=== PATIENT | female | born 1945 | race Caucasian/White ===

== ENCOUNTER → 2018-01-21 12:28 | Outpatient (CLI) | payer MEDICARE, OTHER, SELFPAY ==
[2018-01-21 14:23] LABS: Thyroid Stimulating Hormone 1.64 uIU/mL (0.47-4.68)
[2018-01-21 15:13] LABS: Vitamin D 25 Hydroxy (D3) 77.9 ng/mL (30.0-100.0)
== END ==
PROVIDERS: PCP Family Medicine; Visit Provider Family Medicine
DX: M85.80 Other specified disorders of bone density and structure, unspecified site (principal); E03.9 Hypothyroidism, unspecified
CPT/HCPCS: 36415; 82306; 84443

== ENCOUNTER → 2019-01-19 13:11 | Outpatient (CLI) | payer MEDICARE, OTHER, SELFPAY ==
--- NOTE | 2019-01-19 | DI.MRI.S_ITS ---
PROCEDURE: MR KNEE LT WO CON INDICATIONS: Unilateral primary osteoarthritis, left knee TECHNIQUE: Noncontrast sagittal PD fast spin echo and T2 fast spin echo with fat saturation, sagittal 3-D FLASH with fat saturation; coronal T1 spin echo and PD fast spin echo with fat saturation, and axial PD fast spin echo with fat saturation through the knee. COMPARISON: None. FINDINGS: Image quality: Excellent. Menisci: Signal abnormality involving posterior horn of medial meniscus extending to inferior articulating surface best seen on series 10 image 24 suggestive of focal oblique tear in posterior horn of medial meniscus. There is no evidence of focal lateral meniscal tear. The meniscal root ligaments appear intact. Cruciate ligaments: The anterior and posterior cruciate ligaments appear intact. Medial structures: The medial collateral ligament appears intact. The posterior oblique ligament, semimembranosus tendon insertions, oblique popliteal ligament, and meniscocapsular junction appear intact. Visualized portions of the pes anserinus tendons appear normal. No abnormal bursal fluid. Lateral structures: The lateral collateral ligament, long and short heads of the biceps femoris tendon appear intact. The popliteus tendon appears normal; the popliteofibular ligament appears intact. The posterosuperior and anteroinferior popliteomeniscal fascicles appear intact. The arcuate and fabellofibular ligaments appear intact, on either side of the lateral inferior geniculate artery. Iliotibial band appears normal. Anterior structures: The quadriceps and patellar tendons appear intact. Patellar alignment is normal. No femoral trochlear dysplasia or ventral trochlear prominence. No edema in the infrapatellar fat pad. Bones and cartilage: There is marrow edema involving weight-bearing portion and anterior portion of lateral femoral condyle. Chondromalacia involving medial and lateral femoral condyle weightbearing portion is seen. Chondromalacia involving lateral facet of patella cartilage is also noted. Osteoarthritic changes are noted in all 3 compartments of left knee. No fracture or dislocation. Joint space: There is small to moderate joint effusion. Small popliteal cyst is seen. Normal appearing synovial plicae are incidentally noted. IMPRESSION: 1. Subtle oblique tear involving posterior horn of the meniscus extending to inferior articulating surface. No focal lateral meniscal tear. Cruciate ligaments are intact. 2. Mild tricompartmental osteoarthritis and chondromalacia more prominent in patellofemoral compartment and lateral femoral tibial compartment with bony contusion involving anterior and weightbearing portion of lateral femoral condyle. No fracture or dislocation. 3. Small amount of joint effusion and small popliteal cyst. Dictated by: Raymond Walker M.D. on 01/19/2019 at 15:18 Approved by: Raymond Walker M.D. on 01/19/2019 at 15:52
[2019-01-19 14:52] LABS: Bacteria Urine None Seen; RBC Urine None Seen (0-5/HPF)
[2019-01-19 15:23] LABS: Appearance Urine UA CLEAR; Bilirubin Urine UA NEGATIVE (NEGATIVE); Color Urine UA YELLOW; Glucose Urine UA NEGATIVE (Negative); Ketones Urine UA NEGATIVE (NEGATIVE); Leukocyte Esterase Urine UA 1+ (NEGATIVE); Nitrite Urine UA NEGATIVE (Negative); Occult Blood Urine UA NEGATIVE (Negative); Protein Urine UA NEGATIVE (Negative); Urobilinogen Urine UA 0.2 E.U./dL (0.2)
[2019-01-19 15:36] LABS: Add Manual Diff / Slide Review NO; Basophils Absolute Auto 100 /uL (0-100); Basophils Percent Auto 1.2 % (0-2); Eosinophils Absolute Auto 100 /uL (0-450); Eosinophils Percent Auto 2.9 % (2-4); Hematocrit 34.6 % (36-46); Hemoglobin 11.4 g/dL (12.0-16.0); Lymphocytes Absolute Auto 1700 /uL (1100-4500); Mean Corpuscular HGB Conc 32.8 % (30-36); Mean Corpuscular Hemoglobin 31.1 PG (26-34); Mean Corpuscular Volume 94.9 fL (80-100); Monocytes Absolute Auto 500 /uL (0-900); Monocytes Percent Auto 8.9 % (3-14); Neutrophils Absolute Auto 2800 /uL (1500-7000); Platelet Count 190 X10^3/uL (150-400); Red Blood Cell Count 3.65 X10^6/uL (4.0-5.2); Red Cell Distribution Width 13.1 % (11.6-14.8); White Blood Cell Count 5.1 X10^3/uL (4.5-11.0)
[2019-01-19 15:45] LABS: Culture Indicated Urine Specimen Cultured; Hemoglobin A1C% w Est Avg Glu 5.3 % (4.0-6.0); WBC Urine 0-1/HPF (0-5/HPF)
[2019-01-19 15:57] LABS: Blood Urea Nitrogen 21 mg/dL (7-17); Calcium 9.7 mg/dL (8.4-10.2); Carbon Dioxide 32 mmol/L (22-32); Chloride 103 mmol/L (98-107); Estimated Glomerular Filt Rate 54.5 mL/min (>60); Glucose 81 mg/dL (80-110); HEMOLYSIS < 15 (0-50); Potassium 4.6 mmol/L (3.4-5.1); Sodium 142 mmol/L (137-145)
== END ==
PROVIDERS: PCP Family Medicine; Visit Provider Orthopaedic Surgery
DX: Z01.812 Encounter for preprocedural laboratory examination (principal); Z01.818 Encounter for other preprocedural examination; M17.12 Unilateral primary osteoarthritis, left knee; S83.242A Other tear of medial meniscus, current injury, left knee, initial encounter; M22.42 Chondromalacia patellae, left knee; M25.462 Effusion, left knee; M71.22 Synovial cyst of popliteal space [Baker], left knee; S80.02XA Contusion of left knee, initial encounter; R73.9 Hyperglycemia, unspecified; N39.9 Disorder of urinary system, unspecified; Z13.1 Encounter for screening for diabetes mellitus
CPT/HCPCS: 36415; 73721; 80048; 81001; 83036; 85025; 87086; 93005

== ENCOUNTER → 2019-03-14 12:16 | Outpatient (CLI) | payer MEDICARE, OTHER, SELFPAY | PROVIDERS: PCP Family Medicine; Visit Provider Family Medicine | DX: E03.9 Hypothyroidism, unspecified (principal) | CPT/HCPCS: 36415; 84443 ==

== ENCOUNTER 2019-04-07 06:12 | Day surgery (SDC) | payer MEDICARE, OTHER, SELFPAY ==
[2019-04-07] VITALS (14 sets, daily range): BP systolic 83–115; BP diastolic 44–72; PULSE 59–79; RESP 9–18; TEMP 36.2–36.6; O2SAT 97–100; BMI 18.8
--- NOTE | 2019-04-07 06:00 | DI.RAD.S_ITS ---
PROCEDURE: XR KNEE LT 1TO2V INDICATIONS: post op films TECHNIQUE: 2 view(s) of the knee acquired. COMPARISON: [facility], CR, XR BONE LENGTH SCANOGRAM, 01/19/2019, 14:08. [facility], MR, MR KNEE LT WO CON, 01/19/2019, 13:16. FINDINGS: Bones: Patient is status post knee joint arthroplasty. Hardware components are in expected positions. Visualized bony structures are intact. Soft tissues: Overlying postoperative changes are noted. IMPRESSION: Left knee arthroplasty with prosthesis in anatomic alignment. Dictated by: Cristobal Gallagher M.D. on 04/07/2019 at 17:24 Approved by: Cristobal Gallagher M.D. on 04/07/2019 at 17:24
[2019-04-07] MEDS: VANCOMYCIN 1,000 MG/200 ML PIGGYBACK 200 MG IV (06:54)
[2019-04-07] MEDS: LACTATED RINGERS 1,000 ML 42 ML IV ×2 (06:54→09:07)
[2019-04-07] MEDS: CELECOXIB 200 MG CAPSULE PO (06:56)
[2019-04-07] MEDS: ACETAMINOPHEN 325 MG TABLET 975 MG PO ×2 (06:56→16:18)
[2019-04-07] MEDS: PREGABALIN 75 MG CAPSULE PO (06:56)
--- NOTE | 2019-04-07 07:43 | P.OP_ITS ---
Operative Date/Time/Diagnoses Date of procedure: 04/07/19 Time of procedure: 08:04 Pre-op diagnosis: left knee OA Post-op diagnosis: same Procedure & Clinicians Procedure: Left total knee arthroplasty Same procedure as scheduled: Yes Indications: The patient has had progressively worsening left knee pain with radiographic changes consistent with arthritis. Non-operative management has failed and the patient has requested total knee replacement. The risks, benefits and alternatives to surgery were discussed with the patient prior to proceeding. Risks discussed included, but were not limited to, failure to relieve pain, stiffness, infection, nerve damage, deep venous thrombosis, pulmonary embolism, stroke, coma, heart attack, permanent paralysis and , as well as the potential need for eventual revision of the prosthetic. Surgeon: Michelle Aguilar Forensic Engineer: Nancy Portillo Anesthesia Type: General and Spinal Operative Notes Findings: good stability, acceptable patella tracking Closure Type: primary Specimen(s): none sent Prosthetic devices, grafts, tissues, transplants, or devices: [facility] 2 size 4 femur, size 2 tibia, poly 9mm, patella 35 by 7.5 Applied: drain(s) Estimated Blood Loss (mL): 250 Blood products transfused: none Tourniquet time (min): 67 Procedure in detail: The patient was seen in the pre-operative area, where the patient identified the left knee as the operative site and this was marked with my initials. The patient received pre-operative antibiotics, and was taken to the operating room and placed on the operative table in the supine position. After satisfactory anesthesia, a mail forwarding system markup clerk out was performed. The left leg was encircled with a tourniquet about the proximal thigh, and the leg was prepared from the toes to the tourniquet with ChloroPrep in the usual fashion and draped through sterile drapes. The leg was elevated and exsanguinated with Eschmark bandage and the tourniquet inflated to [250] mmHg pressure. The knee was approached through an approximately 18 cm incision centered over the patella and carried into the knee through a medial parapatellar arthrotomy. A portion of the medial and lateral meniscus was resected. Soft tissue was carefully mobilized around the patella the patella was measured with a caliper. Bone was resected from the patella and the patellar height was reconstituted with up an appropriate sized patellar component. A cover was then placed on the patella. A small amount of additional medial and lateral meniscus was resected. The visionare guide fit well to the distal femur. It looked like an appropriate distal femoral cut and the cut was made without difficulty. The rotation was assessed and the appropriate size femoral guide was placed on the distal femur and finishing cuts were made. There is no evidence of notching. The anterior, posterior and chamfer cuts were then made. The posterior osteophytes and soft tissues were then removed. The posterior capsule was injected with part of a mixture of 60 ml 0.25% Marcaine mixed with 20 ml Exparel for post operative pain control. The remainder of this mixture was injected into the capsule and subcutaneous tissues during cement curing. The tibia was prepared and the visionaire guide fit well to the distal tibia. The rotation was assessed. The patient was placed in extension residual medial and lateral meniscus as well as any residual bone was carefully resected. [No] additional tibia was resected. Hemostasis was achieved especially posteriorly. Additional local was injected into the posterior capsule. The extension gap was assessed and additional releases for gap balancing were performed as necessary. It was checked with the gap flame annealing machine operator. The femoral component was trial was placed and the notch was finished. Trial tibial and femoral components were then placed and the knee placed through a range of motion. Range of motion was [0-130], with good stability throughout the range. The trials were then removed, and the tibia was finished. The bone was prepared with pulsatile lavage, and dried with a sponge. Cement was applied and the final prosthetics placed. Excess cement was removed during and after cement curing. A brief Betadine soak was performed. After confirming there was no extruded cement posteriorly, the final tibial insert was placed. The knee was copiously irrigated and the tourniquet deflated. Hemostasis was obtained with the bovie cautery. A drain was placed and brought out superolaterally. The capsule was closed with interrupted Vicryl suture. The subcutaneous layer was closed with barbed sutures, and the skin with a running 3-0 V-Lock suture and Surgical glue. An Aquacel Ag dressing was applied and the patient was taken to recovery having tolerated the procedure well. Complications: none Post-operative Condition: stable Disposition: Acute Care Plan for aftercare: The patient will be maintained on a standard total knee replacement protocol with weight bearing as tolerated. The patient will receive Lovenox and sequential compression devices for DVT prophylaxis. The patient will be discharged home when safe for the home environment.
--- NOTE | 2019-04-07 07:44 | PM.PREOP ---
Pre-operative Note Interval Note History & Physical reviewed/Exam performed by Physician: Yes Changes to H&P: No
[2019-04-07] MEDS: CEFAZOLIN 2 GM/100 ML FROZ.PIGGY IV ×2 (07:45→16:17)
--- NOTE | 2019-04-07 08:20 | SUR.OPER ---
Supine on padded OR bed. Pillow under head, arms secured on padded armboards <90 degree abduction. Safety belt across torso. Non-operative leg secured with tape over blanket over lower leg. Operative leg secured in DeMayo/Varinder positioner. Foam padded brace at thigh of operative leg.
[2019-04-07] MEDS: BUPIVACAINE 0.25% W/ EPI 30 ML VIAL 60 ML INJ (08:25)
[2019-04-07] MEDS: BUPIVACAINE LIPOSOME 266 MG/20 ML VIAL INJ (08:26)
--- NOTE | 2019-04-07 11:02 | SUR.PHASEI ---
PACU post op nurses note: VSS, SBP 85-94. Asymptomatic. No complaints of pain. Dermatome level at L4. patient able to bend knees and lift legs. Dressing to left knee CDI. Hemovac clamped at 1000 in OR. Tolerating po ice/liquids without nausea. Stable for transfer to IP room.
[2019-04-07] MEDS: LACTATED RINGERS 1,000 ML 125 ML IV (14:11)
--- NOTE | 2019-04-07 15:05 | PT.IIE ---
Surgery Performed Operation Date: 04/07/19 07:45 Actual Procedures p Total Knee Arthroplasty(Left) - Michelle Aguilar MD Surgical History (Last Updated 03/24/19 @ 14:17 by uArelia Ryder RN) Hx of arthroscopy of right knee (Acute) Hx of eye surgery (Acute) Status post arthroscopy Status post tubal ligation Medical History (Last Updated 03/24/19 @ 14:17 by Aurelia Ryder RN) Anxiety (Acute) BCC (basal cell carcinoma) (Acute) GI bleed (Acute ~2011) Hypothyroidism (Chronic) IBS (irritable bowel syndrome) (Chronic) Insomnia (Chronic) Osteoarthritis (Chronic) SCC (squamous cell carcinoma) (Acute) Thin skin (Acute) Physical Therapy Inpatient Evaluation/Re-Eval M1 PT/OT-IP Prior Functional Status Start: 04/07/19 17:37 Freq: NEEDED Status: Active Protocol: Document 04/07/19 15:05 AB (Rec: 04/07/19 17:52 AB [id number]) Medical Review Prior Functional Status Medical History Reviewed Yes Communication able to make needs known Mobility and Gait pt stated that she is independent with all mobilities and ambulation without AD but occasionall uses 2 walking sticks when walking on trails. stated that she is very active prior to sx. Social History Household Members spouse Living Arrangements House Number of Floors (Floors) Two Floors Number of Stairs To Enter/Railing? pt stays on main level of the house 2 steps without rails to enter Home Environment High Toilet,Walk in Shower Home Equipment Shower Seat without Backrest, Hand Held Shower,Grab Bars In Shower Employment Status Retired M2 PT-IP Current Condition Start: 04/07/19 17:37 Freq: NEEDED Status: Active Protocol: Document 04/07/19 15:05 AB (Rec: 04/07/19 17:52 AB [id number]) Physical Therapy Current Condition Current Condition Evaluation Date 04/07/19 Treatment Diagnosis s/p L TKA; difficulty in walking Onset Date 04/07/19 Weight Bearing Status Weight Bearing Status Weight Bear as Tolerated M3 PT-IP Subjective Start: 04/07/19 17:37 Freq: NEEDED Status: Active Protocol: Document 04/07/19 15:05 AB (Rec: 04/07/19 17:52 AB [id number]) Subjective Physical Therapy Visit Type Type Initial Evaluation Visit Start Time 15:05 Visit Stop Time 16:14 Total Visit Minutes 51 Number of PC MAINTENANCE TECHNICIAN Visits 0 Physical Therapy Visit Comments Patient Comments pt agreeable to do PT Therapy Pain Assessment Pain Present Pain Present Denied Pain M4 PT-IP Mobility and Gait Start: 04/07/19 17:37 Freq: NEEDED Status: Active Protocol: Document 04/07/19 15:05 AB (Rec: 04/07/19 17:52 AB [id number]) PT-Bed Mobility Assessment Supine to Sit Supine to Sit Standby Assistance Sit to Supine Sit to Supine Standby Assistance Scooting Scooting to Edge of Bed Standby Assistance Scooting Up and Down in Bed Standby Assistance PT-Transfer Assessment Sit to and From Stand Sit to and from Stand Standby Assistance,Contact Guard Assistance,1 Person Assistance,Use of Upper Extremities Equipment Transfer Assistive Device Gait Belt,Front Wheeled Walker Orthotic/Prosthetic Devices or Brace: No Transfers Transfer Destination Toilet Transfer Technique pt ambulated using FWW Transfer Ability Level of Assist Contact Guard Assistance,Use of Upper Extremities Comments Mobility Comments pt completed bed mobility supine to sit SBA and completed sit to stand CGA. pt ambulated to the toilet using FWW CGA. pt was able to maintain standing balance using FWW for support CGA while completing hygiene care and brief management. pt stated that she still feels numb on her coccyx and unable to tell when she has to urinate. pt completed ambulation using FWW CGA towards the sink and maintain standing balance CGA while completing handwashing. pt walked in room ~ 30 ft and completed further ambulation in the hallway. Gait Assessment Gait Gait Assistance Required: Standby Assistance,Contact Guard Assist Distance (Feet) 125 Able to Maintain Weight Bearing Status Yes During Gait Assistive Devices Assistive Device Gait Belt,Front Wheeled Walker Orthotic/Prosthetic Devices or Brace: No Factors Limiting Gait Function Factors Limiting Gait Function Decreased Strength,Pain Comments Gait Comments pt ambulated in room 30 ft using FWW SBA to CGA and completed ambulation further ambulation in the hallway using FWW SBA to CGA ~ 125 ft. Stair Climbing Assessment Evaluation Level of Assist On Stairs Contact Guard Assistance, Minimal Assistance,1 Person Assistance Devices Stair Climbing Assistive Devices Straight Cane Technique/Endurance Stair Climbing Direction Ascend and Descend Stair Climbing Technique Step to Step Number of Steps Climbed 1 Query Text: Stair Climbing Set # Repetitions (reps) 2 Comments Stair Climbing Comments pt completed up/down one step without rails using SPC CGA for ascending and min A for descending. educated pt on how spouse will needs to assist her and pt understood. PT-Balance Assessment Sitting Balance and Reactions Static Sitting Balance Ability Good Dynamic Sitting Balance Ability Good Standing Balance and Reactions Static Standing Balance Ability Fair Dynamic Standing Balance Ability Fair Device Used FWW M5 PT-IP Objective Assessments Start: 04/07/19 17:37 Freq: NEEDED Status: Active Protocol: Document 04/07/19 15:05 AB (Rec: 04/07/19 17:52 AB [id number]) Orientation Orientation/Cognition Level of Alertness Alert Orientation Name,Place,Situation Language Function Ability No Deficits Noted Memory Description Short Term Impaired Gross Range of Motion Lower Extremity ROM Assessment Within Functional Limits Strength Lower Extremity Strength Assessment Within Functional Limits Coordination Assessment Gross Coordination Gross Coordination WNL Sensation Assessment Sensation Gross Sensation WNL Muscle Tone Muscle Tone WNL Yes M6 PT-IP Treatment Start: 04/07/19 17:37 Freq: NEEDED Status: Active Protocol: Document 04/07/19 15:05 AB (Rec: 04/07/19 17:52 AB [id number]) Physical Therapy Treatment Exercises Exercises Heel Slides Education Education Provided Precautions,Weight Bearing Status,Post-Op Packet,Safety M7 PT-IP Assessment and Plan Start: 04/07/19 17:37 Freq: NEEDED Status: Active Protocol: Document 04/07/19 15:05 AB (Rec: 04/07/19 17:52 AB [id number]) PT Summary Assessment and Plan Potential Rehabilitation Potential Good Status of Condition at Evaluation Stable Summary Impairments Pain,ROM,Strength,Balance, Coordination,Sensation,Tone, Cognition,Bed Mobility, Transfers,Gait,Activity Tolerance Assessment Summary pt requiring SBA to CGA with transfers/ambulation and min A for descendign steps and stated that her spouse will be able to assist her. pt is set up for outpt PT. pt may go home when medically stable. Goals Bed Mobility Goal Independent Transfer Goal Independent,Front Wheeled Walker Gait Goal Independent,Front Wheel Walker Gait Distance 200 Other Goals up/down 2 steps using SPC SBA Days to Meet Goals 3 Frequency of Treatment Frequency Of Treatment Twice a Day Treatment Plan Physical Therapy Treatment Plan Bed Mobility Training,Transfer Training,Gait Training, Therapeutic Exercise,Balance Retraining,Post Op Education, Discharge Planning,Hot or Cold Pack,Neuromuscular Re-ed, Coordination Retraining,Manual Therapy Other Recommendations and Next Treatment ambulation, stair climbing, Focus caregiver training Recommendations To Nursing Amount of Assist Needed 1 Person Assist Discharge Recommendations PT Discharge Recommendations Home with Assistance, Outpatient PT
--- NOTE | 2019-04-07 16:12 | CM.DANOTE ---
Attempted x 2 to perform initial assessment on the patient, but both times she was walking in the hallway with PT. I jokingly said to patient she looked ready to go home right now and she stated, I'd love to I will attempt again in the am to assess plan of care for discharge.
--- NOTE | 2019-04-07 17:08 | P.DS_ITS ---
History of Present Illness History of Present Illness Date Patient Seen: 04/07/19 Time Patient Seen: 17:08 Chief complaint: [id number] Narrative: Please see HPI previously recorded in chart. Discharge Providers Provider Date of admission: 04/07/19 06:12 Discharge Date: 04/07/19 Primary care physician: Zenaida Guzman MD Consults: 04/07/19 06:00 Consult to Anesthesiology Routine Comment: Consulting Provider: Anesthesiologist Reason for consultation: Regional block for post operative pain control 04/07/19 12:04 Consult to Discharge Planning Routine Comment: Consult to Physical Therapy Evaluate & Treat Comment: Physician Instructions: postop TKA protocol Consult to Respiratory Therapy Evaluate & Treat Comment: Physician Instructions: Evaluate and treat Discharge provider: Nancy Portillo PA-C Summary Hospital Course Discharge Diagnosis: s/p left total knee arthroplasty Hospital Course: The patient has had progressively worsening left knee pain with radiographic changes consistent with arthritis. Non-operative management has failed and the patient has requested total knee replacement. The risks, benefits and alternatives to surgery were discussed with the patient prior to proceeding. Risks discussed included, but were not limited to, failure to relieve pain, stiffness, infection, nerve damage, deep venous thrombosis, pulmonary embolism, stroke, coma, heart attack, permanent paralysis and , as well as the potential need for eventual revision of the prosthetic. Patient was taken to the operating room where she underwent left total knee arthroplasty with Dr. Aguilar which she tolerated well without complications. Afterwards she was taken to the acute care floor where she has been progressing well post operatively. She has mobilized well with physical therapy and has successfully climbed stairs. She has had several episodes of urinary incontinence post operatively. She is tolerating a diet. She has had some hypotension, but it has been asymptomatic and patient typically has low blood p ressures. She has good support system at home and has supply of home medications except Tramadol which she is being discharged with. Hemovac was discontinued prior to discharge. She is medically stable for discharge at this time. Status at Discharge Cognitive/behavioral status at discharge: oriented Functional status at discharge: uses cane/walker Overall status at discharge: patient is progressing back to baseline Exam Vital Signs (past 8 hours): - 04/07/19 10:16 04/07/19 10:21 04/07/19 10:26 Temperature 97.2 F L Pulse Rate 79 74 75 Respiratory Rate 11 L 10 L 10 L Blood Pressure 101/59 L 98/58 L 94/52 L Pulse Oximetry 99 99 98 04/07/19 10:31 04/07/19 10:58 04/07/19 11:15 Temperature 97.6 F 97.6 F 97.4 F L Pulse Rate 68 64 64 Respiratory Rate 9 L 13 13 Blood Pressure 89/52 L 89/60 L Pulse Oximetry 98 97 99 04/07/19 11:30 04/07/19 12:00 04/07/19 12:30 Temperature 97.1 F L 97.1 F L 97.6 F Pulse Rate 59 L 63 61 Respiratory Rate 15 16 16 Blood Pressure 83/59 L 84/59 L 98/51 L Pulse Oximetry 98 98 98 04/07/19 13:30 04/07/19 13:43 04/07/19 14:44 Temperature 97.6 F 97.8 F Pulse Rate 68 67 Respiratory Rate 18 14 17 Blood Pressure 87/54 L 101/44 L Pulse Oximetry 100 97 100 04/07/19 15:56 Temperature 97.8 F Pulse Rate 70 Respiratory Rate 16 Blood Pressure 113/68 Pulse Oximetry 97 Oxygen Delivery Method Room Air Oxygen Flow Rate 0 Narrative Exam Narrative: Pleasant 73 year old female resting comfortably in bed. Alert and oriented in no acute distress. Aquacel dressing in place over left knee is CDI. Patient able to extend the leg and flex/extend the foot. SILT. Palpable pedal pulse. Calves soft, compressible. Discharge Plan Discharge Plan Patient Disposition: Home Discharge Med Rec/Prescriptions Prescriptions: New aspirin 81 mg Tablet,Delayed Release (Dr/Ec) 81 mg PO BID Qty: 60 RF: 0 tramadol 50 mg Tablet 50 mg PO TID PRN (Reason: Pain, Moderate (4-6)) Qty: 40 RF: 0 Continued amitriptyline 10 MG tablet 20 mg PO HS Qty: 0 RF: 0 diazepam 2 MG tablet 4 mg PO HS Qty: 0 RF: 0 multivitamin tablet 1 tab PO DAILY RF: 0 calcium-magnesium 300-300 mg tablet 1 tab PO DAILY RF: 0 ibuprofen 200 mg Capsule 600 mg PO QD-BID PRN (Reason: Pain) RF: 0 acetaminophen [Acetaminophen Pain Relief] 500 mg Tablet 1,000 mg PO Q6H PRN (Reason: Pain) RF: 0 levothyroxine 50 mcg tablet 50 mcg PO BEDTIME RF: 0 Follow up/Referrals: Zenaida Guzman MD [Primary Care Provider] - Michelle Aguilar MD [Physician] - Provider Discharge Instructions Diet: Diet as Tolerated Activity: Weight bear as tolerated. Use cane or front wheel walker for support. Cold/Heat Therapy: Apply ice packs as needed. Skin/Wound/Dressing Care Report to your healthcare provider any signs of infection, such as:: chills, fever, night sweats, unusual drainage and unusual redness Dressing: Please leave dressing in place. If dressing becomes saturated please call the office. Visit Report/Discharge Packet Instructions: DI for Knee Replacement Discharge Data Primary Care Provider: Zenaida Guzman
== END 2019-04-07 18:19 | disposition home or self-care (01) ==
LOC: AC 16:52 → OR 04-08 08:23
PROVIDERS: PCP Family Medicine; Visit Provider Orthopaedic Surgery
PROC: 0SRD0JZ Replacement of Left Knee Joint with Synthetic Substitute, Open Approach (ICD-10-PCS; CPT 27447; principal; 2019-04-07 07:45)
DX: M17.12 Unilateral primary osteoarthritis, left knee (principal); E03.9 Hypothyroidism, unspecified
CPT/HCPCS: 27447; 73560; 94762; 97116; 97161; 97530; C1776; C9290; J0690; J1100; J2250; J2274; J2405; J3010

== ENCOUNTER → 2019-08-26 15:06 | Outpatient (CLI) | payer MEDICARE, OTHER, SELFPAY ==
[2019-04-07 13:58] VITALS: BMI 18.8
--- NOTE | 2019-08-26 | DI.MG.S_ITS ---
BILATERAL DIGITAL SCREENING MAMMOGRAM 3D/2D WITH CAD: 08/26/2019 CLINICAL: Routine screening. Comparison is made to exams dated: 09/13/2015 mammogram, 09/12/2014 mammogram, and 01/21/2013 mammogram - [facility]. The tissue of both breasts is heterogeneously dense. This may lower the sensitivity of mammography. Current study was also evaluated with a Computer Aided Detection (CAD) system. No significant masses, calcifications, or other findings are seen in either breast. There has been no significant interval change. IMPRESSION: NEGATIVE There is no mammographic evidence of malignancy. A 1 year screening mammogram is recommended. This exam was interpreted at Station ID: [id number]. NOTE: For mammograms, a report in lay terms will be sent to the patient. Approximately 15% of breast malignancies will not be visualized mammographically. In the management of a palpable breast mass, a negative mammogram must not discourage biopsy of a clinically suspicious lesion. Electronically Signed By: Tino benson/bhavani:08/26/2019 18:34:31 letter sent: Normal Exam ACR BI-RADS Category 1: Negative [id number]
== END ==
PROVIDERS: PCP Family Medicine; Visit Provider Family Medicine
DX: Z12.31 Encounter for screening mammogram for malignant neoplasm of breast (principal)
CPT/HCPCS: 77063; 77067

== ENCOUNTER → 2019-12-19 13:50 | Outpatient (CLI) | payer MEDICARE, OTHER, SELFPAY ==
[2019-12-19 09:02] VITALS: BMI 18.8
[2019-12-22 04:36] LABS: COVID19 Sendout Not Detected (Not Detected)
== END ==
PROVIDERS: PCP Family Medicine; Visit Provider Registered Nurse
DX: Z01.818 Encounter for other preprocedural examination (principal)
CPT/HCPCS: 87635

== ENCOUNTER → 2020-04-04 10:49 | Outpatient (CLI) | payer MEDICARE, OTHER, SELFPAY ==
[2019-12-19 09:02] VITALS: BMI 18.8
[2020-04-04 11:39] LABS: Appearance Urine UA CLEAR; Bilirubin Urine UA NEGATIVE (NEGATIVE); Color Urine UA YELLOW; Glucose Urine UA NEGATIVE (Negative); Ketones Urine UA NEGATIVE (NEGATIVE); Leukocyte Esterase Urine UA 1+ (NEGATIVE); Nitrite Urine UA NEGATIVE (Negative); Occult Blood Urine UA TRACE-INTACT (Negative); Protein Urine UA NEGATIVE (Negative); Specific Gravity Urine UA <=1.005 (1.000-1.035); Urobilinogen Urine UA 0.2 E.U./dL (0.2); pH Urine UA 6.5 (4.5-8.0)
[2020-04-04 12:07] LABS: Bacteria Urine Many (>30); Culture Indicated Urine Specimen Cultured; RBC Urine 0-1/HPF (0-5/HPF); Squamous Epithelial Cell Urine 0-1 /HPF (0-5/HPF); WBC Urine 5-10/HPF (0-5/HPF)
== END ==
PROVIDERS: PCP Family Medicine; Referring Provider Family Medicine; Visit Provider Family Medicine
DX: R30.9 Painful micturition, unspecified (principal)
CPT/HCPCS: 81001; 87077; 87086; 87186

== ENCOUNTER → 2020-05-10 15:37 | Outpatient (CLI) | payer MEDICARE, OTHER, SELFPAY ==
--- NOTE | 2020-05-10 | DI.MRI.S_ITS ---
PROCEDURE: MR KNEE RT WO CON INDICATIONS: unspecified internal derangement of right knee TECHNIQUE: Noncontrast sagittal PD fast spin echo and T2 fast spin echo with fat saturation, sagittal 3-D FLASH with fat saturation; coronal T1 spin echo and PD fast spin echo with fat saturation, and axial PD fast spin echo with fat saturation through the knee. COMPARISON: [facility] [place], CR, XR KNEE ARTHRITIC SERIES BI, 09/17/2018, 10:05. [facility], MR, MR KNEE LT WO CON, 01/19/2019, 13:16. FINDINGS: Image quality: Excellent. Menisci: There is severe degenerative tearing of the body and anterior horn of the lateral meniscus with mild peripheral extrusion. Mild degenerative tearing is also demonstrated within the posterior horn. Degenerative tearing is demonstrated within the anterior meniscal root ligament without rupture. The lateral meniscus and meniscal root ligaments appear intact. Cruciate ligaments: The anterior cruciate ligament is attenuated in signal and thickened. The findings are compatible with sequelae of a prior sprain or chronic myxoid degeneration. There are intact appearing fibers. The posterior cruciate ligament is intact. Medial structures: The medial collateral ligament appears intact. The semimembranosus tendon insertions and meniscocapsular junction appear intact. Visualized portions of the pes anserinus tendons appear intact without associated bursal fluid collections. Lateral structures: The lateral collateral ligament, long and short heads of the biceps femoris tendon appear intact. The popliteus tendon appears intact. Iliotibial band appears normal. Anterior structures: The quadriceps and patellar tendons appear intact. There is moderate lateral shift and mild lateral tilt of the patella. No femoral trochlear dysplasia or ventral trochlear prominence. There is edema laterally within the infrapatellar fat pad which may reflect impingement. Bones and cartilage: No bone marrow contusions or fractures. There are multiple intraosseous cysts within the proximal tibia adjacent to the ACL insertion compatible with intraosseous ganglion cysts. There is tricompartmental osteophytosis. Moderate to severe cartilage thinning is demonstrated in the lateral compartment with areas of apparent full-thickness cartilage loss. There is associated subchondral edema. Mild cartilage thinning is demonstrated in the medial compartment with superficial chondral fissuring along the medial femoral condyle. In the patellofemoral compartment, there is moderate cartilage thinning with chondral fissuring along the lateral patellar facet and lateral trochlea. Joint space: There is a small joint effusion. No Cortez's cyst. Normal appearing synovial plicae are incidentally noted. IMPRESSION: 1. Degenerative tearing of the lateral meniscus including severe degenerative tearing in the body and anterior horn. There is associated mild peripheral extrusion. 2. 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 3. 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 4. Small joint effusion. Dictated by: Tapan Ramey M.D. on 05/10/2020 at 17:56 Approved by: Tapan Ramey M.D. on 05/10/2020 at 18:03
[2020-05-10 13:56] VITALS: BMI 18.8
== END ==
PROVIDERS: PCP Family Medicine; Referring Provider Physician Assistant; Visit Provider Physician Assistant
DX: M23.241 Derangement of anterior horn of lateral meniscus due to old tear or injury, right knee (principal); M23.251 Derangement of posterior horn of lateral meniscus due to old tear or injury, right knee; M23.261 Derangement of other lateral meniscus due to old tear or injury, right knee; M17.11 Unilateral primary osteoarthritis, right knee; M25.461 Effusion, right knee; R15.9 Full incontinence of feces; R11.0 Nausea; K58.9 Irritable bowel syndrome, unspecified; Z87.19 Personal history of other diseases of the digestive system; Z78.9 Other specified health status
CPT/HCPCS: 46600; 73721; 99214

== ENCOUNTER → 2020-05-19 14:26 | Outpatient (CLI) | payer MEDICARE, OTHER, SELFPAY ==
[2020-05-10 13:56] VITALS: BMI 18.8
[2020-05-21 05:53] LABS: COVID19 Sendout Not Detected (Not Detect)
== END ==
PROVIDERS: PCP Family Medicine; Visit Provider Physician Assistant
DX: Z01.812 Encounter for preprocedural laboratory examination (principal)
CPT/HCPCS: 87635

== ENCOUNTER 2020-05-22 12:43 | Day surgery (SDC) | payer MEDICARE, OTHER, SELFPAY ==
[2020-05-10 13:56] VITALS: BMI 18.8
[2020-05-22] VITALS (8 sets, daily range): BP systolic 93–142; BP diastolic 61–81; PULSE 65–99; RESP 12–18; TEMP 36.2–37.2; O2SAT 95–100; BMI 20.2
--- NOTE | 2020-05-22 | PATH_ITS ---
[facility] Accession Number: [id number] . 01 Material submitted: . PART A: colon - RANDOM COLON PART B: body - NO SITE DESIGNATED PART C: body - NO SITE DESIGNATED PART D: stomach - STOMACH PART E: esophagus - DISTAL ESOPHAGUS . 01 Clinical history: . B: RULE OUT CELIAC C: RULE OUT H. PYLORI . 02 Diagnosis: A. Random Colon, Biopsies: Colonic mucosa with no diagnostic abnormality. Negative for active, chronic, and microscopic colitis. Negative for dysplasia and malignancy. . B. Small Bowel, Biopsy: Duodenal mucosa with no diagnostic abnormality. Negative for active inflammation, features of sprue, dysplasia, or malignancy. . C. No Site Designated, Biopsy: Duodenal mucosa with no diagnostic abnormality. Negative for active inflammation, features of sprue, dysplasia, and malignancy. . D. Stomach, Biopsy: Gastric mucosa with increased intraepithelial lymphocytes. Please see comment. Negative for Helicobacter by immunohistochemistry. Negative for intestinal metaplasia. Negative for dysplasia and malignancy. . E. Distal Esophagus, Biopsy: Columnar mucosa with increased intraepithelial lymphocytes. Please see comment. Negative for Helicobacter by immunohistochemistry. Negative for intestinal metaplasia by alcian blue stain. Negative for dysplasia and malignancy. [facility] 05/28/2020 [facility]9 Local . 02 Comment: D-E. The finding of intraepithelial lymphocytosis is nonspecific, but raises the consideration of lymphocytic gastritis. Lymphocytic gastritis can be seen in association with celiac disease, Helicobacter pylori gastritis, viral infection, Crohn's disease, medication related changes, or other etiologies. On rare occasions, lymphocytic gastritis can be associated with large rugae in the setting of a Menetrier's-like protein losing gastropathy syndrome. It is often associated with an endoscopic pattern referred to as varioliform gastritis. . . 02 Electronically signed: . Soraya Weir MD, Pathologist NPI- [id number] . 01 Gross description: . A. Received in formalin, labeled random colon, and consists of multiple mcnair-pink fragments of soft tissue measuring 1.0 x 1.0 x 0.2 cm in aggregate. The specimen is entirely submitted in cassette A1. B. Received in formalin, labeled rule out celiac, and consists of three mcnair fragments of soft tissue measuring 0.6 x 0.5 x 0.2 cm in aggregate. The specimen is entirely submitted in cassette B1. C. Received in formalin, labeled rule out H. pylori, and consists of two mcnair fragments of soft tissue measuring 0.5 x 0.5 x 0.2 cm in aggregate. The specimen is entirely submitted in cassette C1. D. Received in formalin, labeled stomach, and consists of two mcnair fragments of soft tissue measuring 0.5 x 0.4 x 0.2 cm in aggregate. The specimen is entirely submitted in cassette D1. E. Received in formalin, labeled distal esophagus, and consists of two mcnair fragments of soft tissue measuring 0.4 x 0.3 x 0.2 cm in aggregate. The specimen is entirely submitted in cassette E1. (EA:cmc10 [id number]) /MRV 05/23/2020 1242 Local . 02 Microscopic: . D. An immunohistochemical stain was performed to evaluate for Helicobacter organisms and is negative. The control stain showed appropriate reactivity. . E. An immunohistochemical stain was performed to evaluate for Helicobacter organisms and is negative. An Alcian blue stain was performed to evaluate for intestinal metaplasia and is negative. Both control stains showed appropriate reactivity. . * This test was developed and its performance characteristics determined by [employer]. It has not been cleared or approved by the U.S. Food and Drug Administration. The FDA has determined that such clearance or approval is not necessary. This test is used for clinical purposes. It should not be regarded as investigational or for research. . 02 Pathologist provided ICD-10: R19.4 . 02 CPT . 818715, 318234, 371366, 965970, 878098, M66991, 110557 Performed at: 01 [facility] [address], [place], [place] [id number] MD Tapan Pandey MD Phone: [phone] Performed at: 02 [facility] [place] [address] [place] [id number] MD Soraya Wier MD Phone: [phone]
[2020-05-22] MEDS: SODIUM CHLORIDE 0.9% 1,000 ML 200 ML IV (13:40)
--- NOTE | 2020-05-22 13:54 | PM.PREOP ---
Pre-operative Note COVID-19 COVID-19 status: Negative Result date/Date tested (Pos, Neg/Pending): 05/19/20 Interval Note History & Physical reviewed/Exam performed by Physician: Yes Changes to H&P: No ASA Class (for procedural sedation): II
--- NOTE | 2020-05-22 13:58 | PM.OP.ENDO ---
Operative Date/Time/Diagnoses Date of procedure: 05/22/20 Time of procedure: 13:58 Pre-op diagnosis: Nausea, copious mucous in the stool, due for screening colonoscopy Post-op diagnosis: other Procedure & Clinicians Study performed: Attempted EGD under conscious sedation, aborted due to patient intolerance Colonoscopy, random biopsies of colon with cold forceps Procedural sedation performed by the endoscopist for colonoscopy Same procedure as scheduled: No Indications: Nausea Due for screening colonoscopy Surgeon: Emily Gotti Procedure Notes SCOAP/Timeout: Performed Procedure in detail: The patient was brought to the room and placed in left lateral decubitus position with all bony prominences padded. A bite block was positioned in the patient's mouth to protect the lips, teeth, and tongue for the procedure. A time-out was performed and then the patient was given procedural sedation starting with 2 mg of Versed and 100 mcg of fentanyl. Once adequately sedated, the procedure was begun. The lubricated gastroscope was passed through the bite block and across the tongue. I attempted to intubate the esophagus, but the patient was found to have a very high gag reflex, and was persistent gagging and fighting the scope. I was unable to see the inlet of the esophagus in order to safely pass the gastroscope. She was given additional doses of Versed up to 6mg without any improvement. It was unsafe to proceed, and so at this point the EGD was aborted and attention was turned to the colonoscopy portion of the procedure. The patient appeared well sedated. A rectal exam was performed revealing no abnormalities. The colonoscope was then introduced to the rectum and advanced to the cecum in the usual fashion. The colon was quite tortuous, and the patient required additional 6 mg of Versed and 200 micro g of fentanyl in order to tolerate the procedure. There was very little tone to the colon, and traversing the folds of the colon was quite difficult. The cecum was identified by the appendiceal orifice, the mucosal tri-fold, and the ileocecal valve. The scope was then retracted while rotating side to side and examining each mucosal fold. Random biopsies were taken due to the history of diarrhea, and concern for colitis. At the conclusion of the procedure retroflexion was performed and small grade 1-2 internal hemorrhoids without stigmata of bleeding were seen. The scope was then withdrawn from the rectum the procedure was concluded. Due to her intolerance of the EGD portion of the procedure, we requested assistance from the anesthesiologist, Dr. Colon, to provide sedation with propofol. See additional procedure note for the dictation of that procedure. Scope withdrawal time: 9 Sedation minutes: 36 Findings: other findings (Normal appearing colon mucosa. Very tortuous and atonic colon) Specimen(s): other (Random biopsies throughout the colon) Post-procedure Recommendations: Will call with biopsy results and Other recommendation (Colonoscopy recommendations depending on biopsy results.) Follow up: weeks (two) Disposition: PACU
[2020-05-22] MEDS: LIDOCAINE 4% SOLN 50 ML 20 ML TOP (14:00)
[2020-05-22] MEDS: fentaNYL 250 MCG/5 ML INJ IV (14:26)
[2020-05-22] MEDS: MIDAZOLAM 5 MG/5 ML VIAL IV (14:26)
--- NOTE | 2020-05-22 15:05 | P.OP.ENDO_ITS ---
Operative Date/Time/Diagnoses Date of procedure: 05/22/20 Time of procedure: 15:05 Pre-op diagnosis: Nausea, intolerance of EGD under conscious sedation due to high gag reflex Post-op diagnosis: other (Duodenum with blunted villous mucosa, very tortuous esophagus, gastritis with stippled gastric mucosa) Procedure & Clinicians Study performed: Esophagogastroduodenoscopy under MAC Cold forceps biopsies of duodenum to rule out celiac, additional biopsies to rule out H pylori Cold forceps biopsies of the stomach Cold forceps biopsies of the distal esophagus Same procedure as scheduled: No (Procedure was originally attempted under conscious sedation) Indications: This is a 74-year-old woman with persistent nausea, unexplained. EGD was attempted under conscious sedation, but I was not able to safely intubate the esophagus due to high gag reflex, and so the procedure is being attempted again with an anesthesiologist to give MAC with propofol Surgeon: Emily Gotti Procedure Notes SCOAP/Timeout: Performed Procedure in detail: The patient was still mildly sedated from her colonoscopy. Dr. Colon came into the room to provide MAC with propofol. Vitals were monitored throughout the procedure and remained stable. Once adequately sedated, the procedure was begun. The lubricated gastroscope was passed through the bite block and across the tongue and into the esophagus without difficulty. The esophagus was quite tortuous. A tubular view of the esophagus was maintained as the scope was advanced through the esophagus and into the stomach. The stomach was very elongated. The scope was advanced through the stomach and to the pylorus. The scope was gently popped through the pylorus and into the duodenal bulb. The scope was flexed and advanced into the second and third portions of the duodenum. The duodenal villous mucosa had a blunted appearance. Several biopsies were taken to rule out celiac. Additional biopsies were taken to rule out H pylori. The scope was withdrawn into the stomach. There was moderate gastritis with stippling of the gastric mucosa. There were several shallow gastric ulcers in various stages of healing. The scope was retroflexed and the gastric cardia was examined. There was not a significant hiatal hernia seen. The scope was then straightened, and withdrawn into the esophagus. The Z-line was broken, but no large tongues of gastric mucosa extended up into the esophagus.. The distal esophagus was biopsied. The scope was then withdrawn through the esophagus with a tubular view. It was again noted that the esophagus was somewhat tortuous. There were no esophageal diverticula seen. The scope was then withdrawn from the patient the procedure was concluded. The patient tolerated the procedure well and was transferred to the PACU in stable condition. Findings: gastric ulcer, gastritis and other findings (Blunted duodenal mucosa, tortuous esophagus) Specimen(s): other (Biopsies of duodenal mucosa for celiac, biopsies of duodenal mucosa for H pylori, biopsies of stomach, biopsies of distal esophagus) Complications: none Impression: Blunted villous mucosa of the duodenum, moderate gastritis with stippled gastric mucosa Post-procedure Recommendations: Will call with biopsy results and Other recommendation (Follow- up in the office in 2 weeks to discuss plan of care) Follow up: weeks Disposition: PACU
--- NOTE | 2020-05-22 16:05 | SUR.PHASEII ---
Pt up and ambulating gait steady, getting dressed now
--- NOTE | 2020-05-22 16:19 | SUR.PHASEII ---
Pt dressed and waiting in wc for to arrive, no c/o and verbalizes understanding of all dc instructions
== END 2020-05-22 16:25 | disposition home or self-care (01) ==
PROVIDERS: PCP Family Medicine; Referring Provider Family Medicine; Visit Provider Surgery
PROC: 0DJ08ZZ Inspection of Upper Intestinal Tract, Via Natural or Artificial Opening Endoscopic (ICD-10-PCS; CPT 43235; principal; 2020-05-22 13:45)
PROC: 0DJD8ZZ Inspection of Lower Intestinal Tract, Via Natural or Artificial Opening Endoscopic (ICD-10-PCS; CPT 45378; 2020-05-22 13:45)
DX: R19.4 Change in bowel habit (principal); R10.2 Pelvic and perineal pain; R15.9 Full incontinence of feces; R11.0 Nausea; Z80.0 Family history of malignant neoplasm of digestive organs; F41.9 Anxiety disorder, unspecified; Z87.440 Personal history of urinary (tract) infections; E03.9 Hypothyroidism, unspecified; N81.89 Other female genital prolapse; K25.9 Gastric ulcer, unspecified as acute or chronic, without hemorrhage or perforation; K29.70 Gastritis, unspecified, without bleeding; D72.820 Lymphocytosis (symptomatic); K64.0 First degree hemorrhoids
CPT/HCPCS: 45380; 43239; 99152; 99153; J2250; J3010

== ENCOUNTER → 2020-06-21 07:50 | Outpatient (CLI) | payer MEDICARE, OTHER, SELFPAY ==
[2020-05-10 13:56] VITALS: BMI 18.8
[2020-06-21 08:53] LABS: Cholesterol 188 mg/dL (140-199); Glucose 90 mg/dL (80-110); HDL Cholesterol 54 mg/dL (40-60); LDL Cholesterol Calculated 116 mg/dL (<100); Triglycerides 90 mg/dL (35-150)
[2020-06-21 10:02] LABS: Thyroid Stimulating Hormone 2.79 uIU/mL (0.47-4.68)
== END ==
PROVIDERS: PCP Family Medicine; Referring Provider Family Medicine; Visit Provider Family Medicine
DX: Z13.1 Encounter for screening for diabetes mellitus (principal); E03.9 Hypothyroidism, unspecified; Z13.220 Encounter for screening for lipoid disorders
CPT/HCPCS: 36415; 80061; 82947; 84443

== ENCOUNTER → 2020-07-24 14:31 | Outpatient (CLI) | payer MEDICARE, OTHER, SELFPAY ==
[2020-05-10 13:56] VITALS: BMI 18.8
--- NOTE | 2020-07-24 | DI.US.S_ITS ---
PROCEDURE: US PELVIC COMPLETE INDICATIONS: CYST OF OVARY, UNSPECIFIED LATERALITY TECHNIQUE: Real-time scanning was performed of the pelvic organs, with image documentation. Additional endovaginal scanning was necessary due to incomplete visualization of the adnexal and endometrial structures by transabdominal scanning. COMPARISON: None. FINDINGS: Transabdominal scanning: Limited scanning through the kidneys shows no hydronephrosis. No pathologic free abdominal or pelvic fluid. Endovaginal scanning: Uterus: Uterus is normal in size at 2.7 x 5.0 x 4.9 cm, anteverted. The endometrium measures 3.1 mm in combined thickness. Ovaries: Right and left ovaries could not be located. At the midline of the pelvis there is a complex mass which measures up to 9.9 x 6.9 x 9.5 cm, containing a complex cyst that itself measures up to 6.8 x 6.0 x 7.3 cm with separate echotexture of the internal content. There also is an additional septated complex cyst measuring 2.3 x 2.9 x 3.8 cm and 3.9 x 2.8 x 7.2 cm associated. Hypervascularity solid mass at the superior margin of the cyst appears present. IMPRESSION: Normal appearing uterus but a normal or abnormal right and left ovary could not be located. Rather, within the midline of the pelvis is a large complex multi septated and multi cystic cystic mass, with unique echotexture of the individual internal content of the several cysts that comprise the entire large cystic structure. This has appearance that likely is malignant in origin, and gynecological surgical consultation is anticipated. Depending on the clinical status additional anatomic detail could be obtained utilizing contrast-enhanced MR scanning. Dictated by: Troy Reyes M.D. on 07/24/2020 at 16:49 Approved by: Troy Reyes M.D. on 07/24/2020 at 16:53
== END ==
PROVIDERS: PCP Family Medicine; Referring Provider Obstetrics & Gynecology; Visit Provider Obstetrics & Gynecology
DX: N81.4 Uterovaginal prolapse, unspecified (principal); N94.89 Other specified conditions associated with female genital organs and menstrual cycle
CPT/HCPCS: 76830; 76856

== ENCOUNTER → 2020-08-02 11:39 | Outpatient (CLI) | payer MEDICARE, OTHER, SELFPAY ==
[2020-05-10 13:56] VITALS: BMI 18.8
[2020-08-02 13:18] LABS: Cancer Antigen 125 < 5.5 U/mL (0-35)
[2020-08-05 12:50] LABS: Human Epididymis Prot 4 75.6 pmol/L (0.0-96.9)
== END ==
PROVIDERS: PCP Family Medicine; Referring Provider Obstetrics & Gynecology; Visit Provider Obstetrics & Gynecology
DX: C56.9 Malignant neoplasm of unspecified ovary (principal)
CPT/HCPCS: 36415; 86304; 86305

== ENCOUNTER → 2020-08-14 14:08 | Outpatient (CLI) | payer MEDICARE, OTHER, SELFPAY ==
[2020-05-10 13:56] VITALS: BMI 18.8
--- NOTE | 2020-08-14 14:10 | DI.US.S_ITS ---
PROCEDURE: US PELVIC COMPLETE INDICATIONS: RIGHT OVARIAN MASS; POSSIBLE TORSION TECHNIQUE: Real-time scanning was performed of the pelvic organs, with image documentation. Additional endovaginal scanning was necessary due to incomplete visualization of the adnexal and endometrial structures by transabdominal scanning. COMPARISON: [facility], US, US PELVIC COMPLETE, 08/06/2020, 12:28. [facility], US, US PELVIC COMPLETE, 07/24/2020, 14:49. FINDINGS: Transabdominal scanning: Limited scanning through the kidneys shows no hydronephrosis. No pathologic free abdominal or pelvic fluid. Endovaginal scanning: Uterus: Uterus is normal in size at 2.3 x 5.1 x 4.7 cm cm. The endometrium measures 3.1 mm in combined thickness. Ovaries: There is a large complex midline pelvic mass measuring up to 9.4 x 8.0 x 8.2 cm, containing low level internal echoes and several septations. This is comprised of a complex a vascular cyst measuring up to almost 10 cm, a complex irregularly marginated cyst measuring up to 3.7 cm and a solid component measuring up to 4.5 x 2.5 x 2.8 cm. Etiology is uncertain but both benign and malignant neoplasm could produce this appearance. For example, given the complexity of the structure dermoid tumor should be considered. IMPRESSION: Complex multi septated cystic mass with complex internal fluid containing low level internal echoes. Solid component, cystic component, but no calcified component is seen. Consider dermoid tumor. MR pelvis without and with contrast may be warranted for surgical planning. Findings called to Dr. Duncan, OBGYN staff. Surgical intervention is anticipated. No peritoneal free fluid is seen. Dictated by: Troy Reyes M.D. on 08/14/2020 at 15:16 Approved by: Troy Reyes M.D. on 08/14/2020 at 15:20
== END ==
PROVIDERS: PCP Family Medicine; Referring Provider Obstetrics & Gynecology; Visit Provider Obstetrics & Gynecology
DX: N83.291 Other ovarian cyst, right side (principal); R19.09 Other intra-abdominal and pelvic swelling, mass and lump; R10.9 Unspecified abdominal pain; Z20.822 Contact with and (suspected) exposure to COVID-19
CPT/HCPCS: 76830; 76856; 87635

== ENCOUNTER → 2020-08-14 15:33 | Outpatient (CLI) | payer MEDICARE, OTHER, SELFPAY ==
[2020-05-10 13:56] VITALS: BMI 18.8
[2020-08-14 16:05] LABS: COVID19 -Nasal RAPID Negative (Negative)
== END ==
PROVIDERS: PCP Family Medicine; Visit Provider Obstetrics & Gynecology
DX: Z20.822 Contact with and (suspected) exposure to COVID-19 (principal)
CPT/HCPCS: 87635

== ENCOUNTER 2020-08-17 08:02 | Day surgery (SDC) | payer MEDICARE, OTHER, SELFPAY ==
[2020-05-10 13:56] VITALS: BMI 18.8
[2020-08-17] VITALS (16 sets, daily range): BP systolic 90–125; BP diastolic 43–76; PULSE 71–83; RESP 8–16; TEMP 36–37.7; O2SAT 94–100; BMI 20.1
--- NOTE | 2020-08-17 | PATH_ITS ---
[facility] Accession Number: [id number] . 01 Material submitted: . uterus - UTERUS, BILATERAL TUBES AND OVARIES (RIGHT OVARIAN CYST) . 01 Clinical history: . OPB . 02 Diagnosis: Uterus, Bilateral Tubes and Ovaries, Hysterectomy and Bilateral Salpingo-oophorectomy: 1. Right ovary: - Congestion and denuded epithelium, consistent with torsion. 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 2. 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 - Adenomyosis. - Atrophic endometrium. - Negative for atypical hyperplasia. 3. Endometriosis. 4. Right fallopian tube with edema, congestion and paratubal cysts. 5. Left ovary with benign simple cyst. 6. Left fallopian tube with no significant diagnostic abnormality. 7. No evidence of malignancy. [facility] 08/24/2020 1734 Local . 02 Comment: As part of routine director of quality, Dr. Wills reviewed selected slides and agrees with the above diagnoses. . 02 Electronically signed: . Soraya Weir MD, Pathologist NPI- [id number] . 01 Gross description: . The specimen is received in formalin, labeled uterus, both fallopian tubes and ovaries, right ovarian cyst and consists of a 57-gram uterus, cervix and attached left ovary and fallopian tube. The serosa is mcnair-pink to pink-purple and smooth. The specimen measures 7.0 cm from superior fundus to cervix by 4.5 cm from cornu to cornu by 2.4 cm from anterior to posterior. The mcnair-pink smooth, focally hemorrhagic ectocervix measures 4.8 x 4.0 cm and there is a 1.0 x 0.2 cm probe-patent os. The specimen is bivalved to reveal a mcnair-pink herringbone endocervical mucosa. The endometrial cavity measures 2.0 x 1.5 cm and displays a mcnair-pink, focally cystic endometrium measuring 0.2 cm in thickness. There is a 0.6 cm firm subserosal nodule at the fundus. The myometrium is mcnair-pink and trabeculated, measuring 1.2 cm in thickness. The attached left ovary measures 3.0 x 1.5 x 1.4 cm and displays a mcnair cerebriform external surface. Sectioning reveals a 16 x 1.5 x 1.5 cm serous-filled, mcnair-pink, smooth-walled cyst with no papillary excrescences. The left fallopian tube measures 5.5 cm in length by 0.6 cm in diameter, and displays a pink-purple smooth serosa with multiple paratubal cysts ranging from 0.1 to 0.9 cm. Sectioning reveals a mcnair mucosa and a stellate lumen measuring 0.2 cm in diameter. The detached right ovary is cystic and measures 9.0 x 6.5 x 5.0 cm. The external surface is pink-purple to mcnair-pink and smooth. Opening reveals yellow-tinged serous fluid and firm mcnair colloid material. The inner lining is mcnair-pink to pink-purple with multiple mcnair raised nodules ranging from 0.1 to 1.0 cm, 0.1 to 0.3 cm thick. The average wall thickness measures 0.1 cm. The right fallopian tube measures 7.8 cm in length by 0.9 cm in diameter and has a pink-purple smooth serosa. Sectioning reveals a mcnair mucosa and a stellate lumen measuring 0.3 cm in diameter. Education Instructor sections are submitted as follows: . A1 - anterior cervix. A2 - posterior cervix. A3 - anterior uterus. A4 - posterior uterus. A5 - merchandising representative left ovary. A6 - left fallopian tube, central cross-sections and bisected fimbria. A7-A10 - merchandising representative right ovarian cyst. A11-A12 - right fallopian tube, bisected fimbria and central cross-sections. (EA:cmc10 [id number]) A13-A16 - additional merchandising representative right ovary. A17 - Posterior lower uterine segment 1mm nodule, and tissue adjacent to A21. A18-A20 - Cystic area in fundus A21 - Fundus, 0.2 cm nodule and 0.6 cm firm subserosal nodule. A22 - Endometrial strips. /MRV 08/24/2020 1734 Local . 02 Pathologist provided ICD-10: N83.53, D27.9, N80.0 . 02 CPT . 774886 Performed at: 01 [facility] [address] [address], [place], [place] [id number] MD Tapan Pandey MD Phone: [phone] Performed at: [id number] [place], [place] [id number] MD Soraya Weir MD Phone: [phone]
[2020-08-17] MEDS: LACTATED RINGERS 1,000 ML 100 ML IV ×3 (08:45→16:11)
--- NOTE | 2020-08-17 09:22 | PM.PREOP ---
Pre-operative Note COVID-19 COVID-19 status: Negative Result date/Date tested (Pos, Neg/Pending): 08/14/20 Interval Note History & Physical reviewed/Exam performed by Physician: Yes Changes to H&P: No H&P completed within 30 days and has changed as indicated here:: 08/14/20
[2020-08-17] MEDS: CEFAZOLIN 2 GM/100 ML FROZ.PIGGY IV (10:36)
[2020-08-17] MEDS: ACETAMINOPHEN IV 1,000 MG/100 ML VIAL 400 MG IV (10:47)
--- NOTE | 2020-08-17 11:20 | PATH_ITS ---
Note [facility] Accession Number: [id number] TESTS RESULT FLAG UNITS REF RANGE LAB Clinician Provided Cytology Information No. of containers..01 Other (Miscellaneous) 01 PELVIC WASHINGS Clinician ICD10: 01 N83.8 N81.4 N81.10 DIAGNOSIS: 01 PELVIC WASHINGS NEGATIVE FOR MALIGNANT CELLS. MESOTHELIAL CELLS ARE PRESENT. THIS INTERPRETATION INCLUDES EVALUATION OF A CELL BLOCK. Pathologist ICD10: 01 N81.10, N83.8, N81.4 01 Leticia Gambino MD, Pathologist NPI- [id number] [employer], [employer] ([facility]) 01 10 CC, RED, CLOUDY RECEIVED: FRESH IN ORANGE CAP CONTAINER. /[facility] 08/21/2020 0859 Local FLAG LEGEND: L-Low Normal,H-High Normal,LL-Alert Low,HH-Alert High <-Panic Low,>-Panic High,A-Abnormal,AA-Critical Abnormal Performed at: 01 =Z [facility] [address], [place] [address] Tapan Pandey MD, Performed at: 01 [facility] [address], [place], [place] [id number] MD Tapan Pandey MD Phone: [phone]
--- NOTE | 2020-08-17 11:21 | SUR.OPER ---
Lithotomy on padded OR bed. [place] Pad Positioner under torso. Head on pillow, arms padded and tucked at sides. Legs secured in padded yellow fins stirrups.
[2020-08-17] MEDS: BUPIVACAINE 0.5% W/ EPI (PF) 30 ML VIAL INJ (11:48)
--- NOTE | 2020-08-17 14:08 | PM.GYNOP.1 ---
Operative Date/Time/Diagnoses Date of procedure: 08/17/20 Time of procedure: 14:08 Pre-op diagnosis: 9 cm right ovarian mass Uterine prolapse Cystocele Post-op diagnosis: other (Rectocele) Procedure & Clinicians Procedure: Procedures Operation Date: 08/17/20 09:15 Actual Procedures Side Surgeon p Laparoscopic Assisted Vag Hysterectomy w/ bilateral salpingo-oophorectomy, Nakia Duncan MD s Anterior and posterior Repair,Sacrospinous Ligament Fixation aNkia Duncan MD Indications: 9 cm right ovarian mass Uterine prolapse Cystocele Rectocele Surgeon: Nakia Duncan Inspector Subassembly: Karen Dickinson Anesthesia Type: General and Local Operative Notes Findings: Five week size prolapsed uterus Right ovary with 9 cm mass Right ovary torsed Left ovary and tube normal Second-degree cystocele Second-degree rectocele Closure Type: primary Specimen(s): left tube & ovary, right tube & ovary and uterus Applied: catheter (To continuous drainage) Estimated blood loss (mL): 150 Blood products transfused: none Procedure in detail: The patient was taken to the operating room where she was placed in the dorsal supine position. After adequate general endotracheal anesthesia was achieved, she was placed in the dorsal lithotomy position, and prepped and draped in the usual sterile fashion. A time-out was performed. A bivalve speculum was placed into the vagina, and a single-tooth tenaculum was placed on the anterior lip of the cervix. The cervical os was sequentially dilated until the ZUMI uterine manipulator could pass easily into the endometrial cavity. The single-tooth tenaculum was removed from the anterior lip of the cervix, and the bivalve speculum was removed from the vagina. Attention was then turned to the abdomen where 6 mL of half percent Marcaine with epinephrine were injected in the umbilical fold. A 5 mm incision was made. The Verees needle was placed into the peritoneal cavity, and its placement confirmed by aspiration and drop test. The abdominal cavity was insufflated with 4 L of CO2. The Verees needle was removed, and a 5 mm trocar was placed without difficulty. Initial inspection of the pelvis revealed the findings noted above. 2 other incisions were made midway between the pubic symphysis and umbilicus 4 cm lateral to the midline. These were 5 mm incisions. Two 5 mm trocars were placed under direct visualization. The right tube and ovary were grasped with an atraumatic grasper. The infundibulopelvic ligament on the right side was cauterized and cut with plasma kinetic. The round ligament and broad ligament were cauterized and cut. This was continued to the level of the uterine arteries. This was repeated on the patient's left side. The instruments were removed from the abdomen. Attention was then turned to the vagina where the ZUMI uterine manipulator was removed from the uterus. The cervix was grasped with a 4 tooth tenaculum. 10 mL of quarter percent Marcaine with epinephrine were injected circumferentially around the cervix. The cervix was circumscribed. The bladder and rectum were dissected off the lower uterine segment and cervix with an open moistened Ray-Yina. The peritoneum was entered sharply with the Metzenbaum scissors anteriorly and a [place] placed. The peritoneum was entered posteriorly with the Metzenbaum scissors and the long weighted speculum was placed into the posterior cul-de-sac. The uterosacral cardinal ligament complexes were clamped, transected, and suture ligated with 0 Vicryl. These were attached to a hemostat. The uterine arteries were clamped, transected, and suture ligated with 0 Vicryl. The uterus was handed off for specimen with the tubes and ovaries. The peritoneum was closed with a pursestring suture with 2-0 Vicryl. The vaginal cuff was closed with 0 Vicryl with a series of simple interrupted sutures. The tagged sutures were cut. 2 Allis clamps were placed at the apex of the cystocele. 6 mL of half percent Marcaine with epinephrine were injected and an incision was made with a #10 blade between the 2 Allis clamps. Wide Allis clamps were placed on the midline of the cystocele approximately 7. The mucosa was undermined using the Metzenbaum scissors and the mucosa incised in the midline moving the wide Allis clamps to the edges of the mucosa. The mucosa was dissected off the underlying fascia using an open moistened Ray-Yina and a #10 blade. The fascia was reapproximated with 0 Vicryl with a series of horizontal mattress sutures. The excess vaginal mucosa was excised. The mucosa was closed using simple interrupted sutures with 2-0 Vicryl including the underlying fascia to close the space. The weighted speculum was removed from the vagina. Allis clamps were placed at the mucocutaneous junction at the introitus. 6 mL of half percent Marcaine with epinephrine were injected. An incision was made with a #10 blade between the 2 Allis clamps, and a triangular piece of skin and underlying subcutaneous tissue was removed. Allis clamps were placed in the midline of the rectocele. 10 mL of half percent Marcaine with epinephrine were injected submucosally. The mucosa was undermined using the Metzenbaum scissors and the mucosa incised in the midline, moving the wide Allis clamps to the mucosal edges. The underlying fascia was dissected off of the mucosa using an open moistened Ray-Yina and a #10 blade. The sacral spinous ligament was identified and using blunt dissection was cleared of all bowel and adventitia. Using the Capio needle, a 2-0 Prolene suture was placed into the sacral spinous ligament 2 cm away from the ischial spine. This suture was tagged with a hemostat. The fascia was reapproximated using 0 Vicryl with a series of horizontal mattress sutures. After a few fascial sutures were placed, the Capio needle was used to place the 2-0 Prolene through the vaginal mucosa at the cuff with care not to, all the way through the mucosa. This was then tied down to the sacral spinous ligament. The remainder of the fascia was closed. The excess vaginal mucosa was excised. The mucosa was closed using a series of simple interrupted sutures with 2-0 Vicryl including the underlying fascia to close the space. On the perineum 0 Vicryl was used to reapproximate the levator muscle. The subcutaneous layer was closed with 2-0 Vicryl. The skin was closed with 3-0 chromic in a subcuticular fashion. Hemostasis was achieved. A Betadine moistened vaginal pack was placed into the vagina. A rectal exam was done and there were no sutures palpable in the rectum. Gloves were changed. Attention was then again turned to the abdomen where the peritoneal cavity was re-insufflated with carbon dioxide gas. The pelvis was examined. Copious irrigation was performed. There was no bleeding noted. The instruments were removed from the abdomen. The CO2 was allowed to escape. The 3 skin incisions were closed with 4 0 Biosyn in a subcuticular fashion. Steri-Strips were placed. Allevyn dressings were placed. The urine was clear. Sponge, lap, and instrument counts were correct x-2. The patient tolerated the procedure well, was taken to PACU in stable condition. The export sales assistant during this case provided retraction on the uterus while the primary surgeon was doing the left side of the uterus, tubes, and ovaries. The export sales assistant did her side of the uterus, tubes, and ovaries. Vaginally the export sales assistant provided retraction while the primary surgeon did the clamping cutting and suturing of the pedicles. She provided retraction in the anterior cul-de-sac. For the anterior and posterior repair shoe provided retraction and cut suture. Where the sacral spinous ligament fixation she provided retraction so that the sacral spinous ligament could be palpated. Once the vaginal portion of the case was finished, she used a probe to remove the bowel from the pelvis so that the pedicles could be visualized. Complications: none Post-operative Condition: stable Disposition: PACU Plan for aftercare: To acute care unit after recovery
[2020-08-17] MEDS: OXYCODONE IR 5 MG TABLET PO (14:45)
--- NOTE | 2020-08-17 15:25 | PC.NURSE ---
Admit note: Patient admitted to room 210 at 1500, awake, alert, and pleasantly calm. Oriented to room, environment and plan of care. Surgical lap sites x 4 with Allevyn dressings, CDI. Call light within reach. Report given to Troy BIGGS.
[2020-08-17] MEDS: KETOROLAC 30 MG/ML VIAL 15 MG IV (18:15)
[2020-08-17] MEDS: diazePAM 2 MG TABLET 4 MG PO (21:06)
[2020-08-17] MEDS: DOCUSATE 250 MG CAPSULE PO (21:07)
[2020-08-17] MEDS: LEVOTHYROXINE 50 MCG TABLET PO (21:07)
[2020-08-17] MEDS: AMITRIPTYLINE 10 MG TABLET 20 MG PO (21:07)
--- NOTE | 2020-08-18 00:04 | PC.NURSE ---
0000 Was going to administer Toradol but patient declined as she has H/O PEPTIC ULCERS AND GI BLEED. Medication contraindicated with those medical diagnoses. Please discontinue this order. Pt prefers APAP PRN for pain. Pain currently controlled, reporting 1-2/10, tolerable.
[2020-08-18] MEDS: LACTATED RINGERS 1,000 ML 100 ML IV (02:14)
[2020-08-18 05:45] VITALS: BP 88/55; PULSE 76; RESP 16; TEMP 37.8; O2SAT 96
[2020-08-18 06:15] VITALS: BP 108/58
[2020-08-18 08:06] LABS: Add Manual Diff / Slide Review NO; Basophils Absolute Auto 100 /uL (0-100); Basophils Percent Auto 0.7 % (0-2); Eosinophils Absolute Auto 0 /uL (0-450); Eosinophils Percent Auto 0.4 % (2-4); Hematocrit 28.6 % (36-46); Hemoglobin 9.7 g/dL (12.0-16.0); Lymphocytes Absolute Auto 1600 /uL (1100-4500); Lymphocytes Percent Auto 18.1 % (25-40); Mean Corpuscular HGB Conc 33.8 % (30-36); Mean Corpuscular Volume 94.7 fL (80-100); Monocytes Absolute Auto 600 /uL (0-900); Neutrophils Absolute Auto 6500 /uL (1500-7000); Neutrophils Percent Auto 73.8 % (50-75); Platelet Count 146 X10^3/uL (150-400); Red Blood Cell Count 3.02 X10^6/uL (4.0-5.2); Red Cell Distribution Width 12.8 % (11.6-14.8); White Blood Cell Count 8.8 X10^3/uL (4.5-11.0)
--- NOTE | 2020-08-18 08:07 | PC.NURSE ---
0615 Vaginal packing removed; 90% saturated. Igor-pad had scant serous drainage, and Chucks pad underneath patient had a moderate amount of dried serous drainage. It appears as though her vaginal bleeding missed the igor-pad.
[2020-08-18] MEDS: DOCUSATE 250 MG CAPSULE PO (08:11)
[2020-08-18 09:00] VITALS: BP 113/65; PULSE 75; RESP 16; TEMP 37; O2SAT 98
--- NOTE | 2020-08-18 11:12 | PC.NURSE ---
Pt IV removed and she is now getting dressed to go home. Spouse will be coming to the ER entrance to pick her up. Went over d/c instructions with Pt-discussed d/c meds, time of last dose, reviewed stroke education, s/s of infection, showering, no driving while on narcotics, do not exceed 3000mg of Acetaminophen in 24 hours, drink plenty of fluids to prevent constipation or dehydration, and follow recommended bladder emptying plan as set by Dr. Duncan. Pt denies further questions and was taken out via w/c by [employer] to POV with all belongings.
--- NOTE | 2020-08-18 13:21 | CM.DANOTE ---
DCP: Case received, EMR reviewed and met with patient. Introduced self and role. Was able to obtain information from patient regarding her baseline activity status prior to surgery. DCP assessment completed with information currently available. Patient is a 74 year old female who admitted yesterday morning to the care of the MEDICAL RECEPTIONIST ASSISTANT team. PCP: Dr. Guzman. Payer: confirmed: Medicare/[employer]. Patient came to the hospital for a surgical procedure. She had a Cystocele, Laparoscopic assisted vaginal hysterectomy with bilateral oopherectomy. Met with patient in her room. She is pleasant, alert and oriented, and was laying in bed. She resides here in [place] with her spouse, Gal, and is independent at baseline. Confirmed with her that Dr. Guzman is her primary care provider. P: Patient is to be discharged home today with no needs. Flor Jung RN/Maintenance And Custodian Supervisor
== END 2020-08-18 11:15 | disposition home or self-care (01) ==
LOC: OR 08:04 → AC 08:04
PROVIDERS: PCP Family Medicine; Referring Provider Obstetrics & Gynecology; Visit Provider Obstetrics & Gynecology
PROC: 0UT9FZZ Resection of Uterus, Via Natural or Artificial Opening With Percutaneous Endoscopic Assistance (ICD-10-PCS; CPT 58552; principal; 2020-08-17 09:15)
PROC: (CPT 58552; 2020-08-17 09:15)
DX: N81.3 Complete uterovaginal prolapse (principal); R10.31 Right lower quadrant pain; E03.9 Hypothyroidism, unspecified; G25.81 Restless legs syndrome; N83.8 Other noninflammatory disorders of ovary, fallopian tube and broad ligament
CPT/HCPCS: 58552; 57260; 36415; 85025; J0131; J0690; J1100; J1885; J2250; J2405; J2704; J3010

== ENCOUNTER 2020-11-26 15:00 | Outpatient (RCR) | payer MEDICARE, OTHER, SELFPAY ==
[2020-08-17 16:15] VITALS: BMI 20.1
--- NOTE | 2020-11-05 16:22 | PT.OPPOC ---
Physical, Occupational & Speech Therapy At [facility] Current Diagnoses Other specified disorders of muscle (11/05/20) Visit Care Team Role Provider Type Zenaida Guzman MD Family Provider Physician Primary Care Provider Specialty: Family Practice Address: [address] [place] [address], [place], [address] Email: [email or web address] Nakia Duncan MD Attending Provider Physician Referring Provider Specialty: Gynecology CLINICAL PROGRAM COORDINATOR Obstetrics Address: [address] [place] [address], [id number] Email: [email or web address] Plan Of Care PT-OP-T Assessment and Plan Start: 10/29/20 19:34 Freq: Status: Active Protocol: Document 11/05/20 15:11 LRN (Rec: 11/05/20 16:51 LRN [id number]) Physical Therapy Assessment Rehab Potential Rehabilitation Potential Good Evaluation Complexity Number of Personal Factors/Comorbidities 3 or More Number of Body Systems Impaired 4 or More Clinical Presentation at Evaluation Evolving Impairments Impairments Activity Tolerance,ROM,Soft Tissue Mobility,Strength, Transfers Goals Three Impairment Pt limited in prior function of exercise weight lifting/ab strengthening. Short Term Goal (STG) Pt will be educated in proper breathing technique for exercise and transfers. STG Duration 11/11/20 Penitentiary Goal (LTG) Pt will be able to safely get back to weight lifting and abdominal strengthening. LTG Duration 01/04/21 Two Impairment Urinary stress incontinence ( with coughing, sneezing) Short Term Goal (STG) Pt will be educated in proper coordination and strengthening of the PF. STG Duration 11/30/20 Multi Sensor Operator Goal (LTG) Pt will be able to maintain continence in the presence of a stress (coughing, sneezing). LTG Duration 01/04/21 One Impairment Pt lacks appropriate self care HEP. Short Term Goal (STG) Pt will be educated in proper PF care. STG Duration 11/30/20 Penitentiary Goal (LTG) Pt will be independent in a self care HEP. LTG Duration 01/04/21 Assessment Summary Assessment Pt is a 75 yo female s/p cytocele/rectocele repair, hysterectomy, and removal of large ovarian cyst. Per subjective reports the pt is experiencing signs of constipation with bowel types of 1 & 3. Pelvic floor internal examination was deferred today due to pt reported granulation tissues of vagina, currently in healing phase. In supine I was able to visualize pt's external PF contractions, noting a very slight anterior PF and a notable posterior PF contraction. Visually no rectecele is present but her urethral opening is visible, extending into the vaginal canal. With a PF contraction the anterior tissues had a weak drawing up motion, but posteriorly strength appeared good. The pt was advised to do light weight training exercising until we can meet for her second appt for educatioin in proper breathing techniques for exercise. The pt's PF appears dry and is moderately red due to wearing of protective padding. The pt will benefit from PF rehabilitation for education in proper PF care, education in proper breathing techniques for exercise and daily movement and general PF strengthening. When she is cleared for internal assessment, she will be assessed for areas of PF weakness around the PF clock. Physical Therapy Plan Frequency and Duration Frequency of Treatment 1x/Week Plan of Care Start Date 11/05/20 Plan of Care End Date 01/04/21 Therapeutic Interventions Therapeutic Interventions Home Exercise Program,Manual Therapy,Self-Care/Home Management,Soft Tissue Mobilization,Therapeutic Activities,Therapeutic Exercises Modalities Biofeedback,Electric Stimulation Next Visit Focus/Plan Next Note Type Treatment Note Next Visit Plan Assess results of Bladder Diary for urinary leakage and constipation. Assess ROM of hips. Educate pt on proper breathing and with functional activities and exercise. Assess superficial PF for tightness/weakness (if cleared for deeper internal assessment, assess deep PF ms strength; PF coordination training for stress urinary incontinence. Plan of Care Dates Plan of Care Start Date 11/05/20 Plan of Care End Date 01/04/21 Electronically Signed by: Kylee Hernandez, PT 11/06/20 6329 Please Sign and Return: I have reviewed this Plan of Care and certify that the skilled therapy services above are required to meet the patient?s needs. Physician Signature Date Printed Name and Credentials Clinical Instructor Signature Printed Name and Credentials
--- NOTE | 2020-11-05 16:22 | PT.OIE ---
Current Diagnoses Other specified disorders of muscle (11/05/20) Past Medical History (Last Reviewed 09/20/20 @ 12:43 by Emily Gotti MD) Anxiety BCC (basal cell carcinoma) GI bleed (~2011) Hypothyroidism IBS (irritable bowel syndrome) Insomnia Osteoarthritis SCC (squamous cell carcinoma) Thin skin Past Surgical History (Last Reviewed 09/20/20 @ 12:43 by Emily Gotti MD) Hx of arthroscopy of right knee Hx of eye surgery Status post arthroscopy Status post tubal ligation Visit Care Team Role Provider Type Zenaida Guzman MD Family Provider Physician Primary Care Provider Specialty: Family Practice Address: [address] [place] [address], [facility] Email: [email or web address] Nakia Duncan MD Attending Provider Physician Referring Provider Specialty: Gynecology [facility] Address: [address] [place] [address], [facility] Email: [email or web address] Physical Therapy Initial Evaluation PT-OP-A Visit Information Start: 10/29/20 19:34 Freq: Status: Active Protocol: Document 11/05/20 15:11 LRN (Rec: 11/05/20 16:51 LRN [id number]) Out-Patient Physical Therapy Visit Information Visit Information Visit Type Initial Evaluation Visit Start Time 15:11 Visit Stop Time 16:05 Total Visit Minutes 54 Visit Number 1 Evaluation Information Evaluation Date 11/05/20 Precautions Precautions Hyste and removal of lg ovarian cyst, rectocele and cystocele repair by Dr. Duncan - 08/17/20, L TKA - 04/2019, Arthritis, planning R TKA surgery, history review: thin skin, IBS, hx of GI bleed, anxiety, insomnia, Hypothyroidism, squamous cell carcinoma. PT-OP-B Current Condition Start: 10/29/20 19:34 Freq: Status: Active Protocol: Document 11/05/20 15:11 LRN (Rec: 11/05/20 16:51 LRN [id number]) Current Condition History of Current Condition Onset Date 08/17/20 Current Complaints Urinary leakage with cough or sneeze or sudden mvmt. History of Current Condition 08/17/20: Hyste and removal of lg ovarian cyst, rectocele and cystocele repair. Has been cleared to do light weight lifting (as of 6 wks post surgery), <5-8# hand weights. she has been going to the gym and using machines at a weight that she feels is very easy (legs 50# AB/AD; Biceps/Triceps 10#, most Upper body in the 10-20# range), only does if she can do with very little abdominal use. Other knee R side needs to have a TKA surgery too. PMH: Hypothyroidism, Celiac disease, arthritis, can suffer from extreme insomnia controlled by medication, L TKA Future Testing and Treatments Planned Dr. Reyes f/u appt in 9 days for recheck on healing of vaginal granulation tissue. Treatment Goals Patient/Caregiver Goals Learn how to strengthen the PF . Learn how to safely get back to weight lifting and abdominal strengthening. Prior Functional Status Baseline Function- ADL's Independent Baseline Function- Mobility Modified Independent Baseline Function- Gait Walks 1 hr every other day, uses eliptical daily for 30' Baseline Function- Recreation/Hobbies Exercised in the gym 3x/week for weight training. Current Functional Impairments (Reported) Functional Limitations- ADL's When cleared for exercise (2-3 weeks ago), returned 3x/week. Functional Limitations- Mobility/Gait Limited mildly due to R knee pain. Functional Limitations- Recreation/ Decreased weights with weight Hobbies training. Personal Factors Other Personal Factors That May Effect PMH: Hypothyroidism, Celiac Therapy/Recovery disease, arthritis, can suffer from extreme insomnia controlled by medication. Bone on bone with R knee. PT-OP-C Subjective Start: 10/29/20 19:34 Freq: Status: Active Protocol: Document 11/05/20 15:11 LRN (Rec: 11/05/20 16:51 LRN [id number]) Patient Questionnaires Pelvic Pain and Urgency/Frequency Patient Symptom Scale Pelvic Pain Score 5 OP-PT Pain Assessment Pain Assessment Grid Paper Pain Assessment Grid Completed Yes Location R anterior & lateral knee Pain Location Details R anterior & lateral knee Intensity 4 Scale Used Numeric (0 - 10) Description Sharp,Tightness Description- Other Stiffness Frequency Intermittent Pain Aggravating Factors Changing Position,Walking, Stair Climbing Other Pain Aggravating Factors Downhill walking PT-OP-I Pelvic Floor Start: 10/29/20 19:34 Freq: Status: Active Protocol: Document 11/05/20 15:11 LRN (Rec: 11/05/20 16:51 LRN [id number]) Pelvic Floor Assessment Bowel Bowel Surgery No Bowel Movement Frequency 1x/day [place] Stool Chart Type 1-7 3 [place] Stool Chart Comments Sometimes type 1. Comments Pelvic Floor Comments Hold on PF internal assessment due to healing of vagina and pt being treated for granulation tissue. PT-OP-J Posture/Palpation/Skin Start: 10/29/20 19:34 Freq: Status: Active Protocol: Document 11/05/20 15:11 LRN (Rec: 11/05/20 16:51 LRN [id number]) Posture Evaluation Position Standing T-Spine Posture Flattened L-Spine Posture Increased Lordosis Comments Posture Comments Tends to weight bear more forward on toes. PT-OP-K Range of Motion Start: 10/29/20 19:34 Freq: Status: Active Protocol: Document 11/05/20 15:11 LRN (Rec: 11/05/20 16:51 LRN [id number]) Lumbar Spine Range of Motion Lumbar Spine Active Degrees Testing Position Standing Flexion 78 Extension 10 Lateral Flexion Left 12 Lateral Flexion Right 12 PT-OP-M Strength Start: 10/29/20 19:34 Freq: Status: Active Protocol: Document 11/05/20 15:11 LRN (Rec: 11/05/20 16:51 LRN [id number]) Trunk Strength Trunk Manual Muscle Testing Testing Position Supine Core Stabilization Lacks stabilization with MMT of R hip flexor (L pelvic rotation) Hip Strength Hip Manual Muscle Testing Right Flexion (L2) 4+ Good+ Extension (S1) 5 Normal Abduction 5 Normal Adduction 2+ Poor+ External Rotation 3 Fair Internal Rotation 3+ Fair+ Left Flexion (L2) 5 Normal Extension (S1) 4 Good Abduction 5 Normal Adduction 5 Normal External Rotation 3 Fair Internal Rotation 3+ Fair+ PT-OP-Q Treatments Start: 10/29/20 19:34 Freq: Status: Active Protocol: Document 11/05/20 15:11 LRN (Rec: 11/05/20 16:51 LRN [id number]) Self-Care/Home Management Treatment Education Patient Education Home Exercise Program Other Education Discussed results of evaluation, goals, and plan of care (POC). Pt agreeable to goals and POC. Activities Self-Care/Home Management Activities Issued, discussed, & reviewed Bladder Diary for pt to complete over the next 7 days. Explained how to fill out diary and counting of urination times. Issued & reviewed HEP: Kegels ex's for Quick Flicks, Long Holds and Aggravator strengthening. PT-OP-T Assessment and Plan Start: 10/29/20 19:34 Freq: Status: Active Protocol: Document 11/05/20 15:11 LRN (Rec: 11/05/20 16:51 LRN [id number]) Physical Therapy Assessment Rehab Potential Rehabilitation Potential Good Evaluation Complexity Number of Personal Factors/Comorbidities 3 or More Number of Body Systems Impaired 4 or More Clinical Presentation at Evaluation Evolving Impairments Impairments Activity Tolerance,ROM,Soft Tissue Mobility,Strength, Transfers Goals Three Impairment Pt limited in prior function of exercise weight lifting/ab strengthening. Short Term Goal (STG) Pt will be educated in proper breathing technique for exercise and transfers. STG Duration 11/11/20 Motor Brakeman Goal (LTG) Pt will be able to safely get back to weight lifting and abdominal strengthening. LTG Duration 01/04/21 Two Impairment Urinary stress incontinence ( with coughing, sneezing) Short Term Goal (STG) Pt will be educated in proper coordination and strengthening of the PF. STG Duration 11/30/20 Motor Brakeman Goal (LTG) Pt will be able to maintain continence in the presence of a stress (coughing, sneezing). LTG Duration 01/04/21 One Impairment Pt lacks appropriate self care HEP. Short Term Goal (STG) Pt will be educated in proper PF care. STG Duration 11/30/20 Skilled Nursing Goal (LTG) Pt will be independent in a self care HEP. LTG Duration 01/04/21 Assessment Summary Assessment Pt is a 75 yo female s/p cytocele/rectocele repair, hysterectomy, and removal of large ovarian cyst. Per subjective reports the pt is experiencing signs of constipation with bowel types of 1 & 3. Pelvic floor internal examination was deferred today due to pt reported granulation tissues of vagina, currently in healing phase. In supine I was able to visualize pt's external PF contractions, noting a very slight anterior PF and a notable posterior PF contraction. Visually no rectecele is present but her urethral opening is visible, extending into the vaginal canal. With a PF contraction the anterior tissues had a weak drawing up motion, but posteriorly strength appeared good. The pt was advised to do light weight training exercising until we can meet for her second appt for educatioin in proper breathing techniques for exercise. The pt's PF appears dry and is moderately red due to wearing of protective padding. The pt will benefit from PF rehabilitation for education in proper PF care, education in proper breathing techniques for exercise and daily movement and general PF strengthening. When she is cleared for internal assessment, she will be assessed for areas of PF weakness around the PF clock. Physical Therapy Plan Frequency and Duration Frequency of Treatment 1x/Week Plan of Care Start Date 11/05/20 Plan of Care End Date 01/04/21 Therapeutic Interventions Therapeutic Interventions Home Exercise Program,Manual Therapy,Self-Care/Home Management,Soft Tissue Mobilization,Therapeutic Activities,Therapeutic Exercises Modalities Biofeedback,Electric Stimulation Next Visit Focus/Plan Next Note Type Treatment Note Next Visit Plan Assess results of Bladder Diary for urinary leakage and constipation. Assess ROM of hips. Educate pt on proper breathing and with functional activities and exercise. Assess superficial PF for tightness/weakness (if cleared for deeper internal assessment, assess deep PF ms strength; PF coordination training for stress urinary incontinence.
--- NOTE | 2020-11-12 16:29 | PT.OTN ---
Current Diagnoses Other specified disorders of muscle (11/12/20) Physical Therapy Treatment Note PT-OP-A Visit Information Start: 10/29/20 19:34 Freq: Status: Active Protocol: Document 11/12/20 15:09 LRN (Rec: 11/12/20 16:27 LRN [id number]) Out-Patient Physical Therapy Visit Information Visit Information Visit Type Treatment Note Visit Start Time 15:09 Visit Stop Time 15:58 Total Visit Minutes 49 Visit Number 2 PT-OP-B Current Condition Start: 10/29/20 19:34 Freq: Status: Active Protocol: Document 11/05/20 15:11 LRN (Rec: 11/05/20 16:51 LRN [id number]) Current Condition History of Current Condition Onset Date 08/17/20 Current Complaints Urinary leakage with cough or sneeze or sudden mvmt. History of Current Condition 08/17/20: Hyste and removal of lg ovarian cyst, rectocele and cystocele repair. Has been cleared to do light weight lifting (as of 6 wks post surgery), <5-8# hand weights. she has been going to the gym and using machines at a weight that she feels is very easy (legs 50# AB/AD; Biceps/Triceps 10#, most Upper body in the 10-20# range), only does if she can do with very little abdominal use. Other knee R side needs to have a TKA surgery too. PMH: Hypothyroidism, Celiac disease, arthritis, can suffer from extreme insomnia controlled by medication, L TKA Future Testing and Treatments Planned Dr. Reyes f/u appt in 9 days for recheck on healing of vaginal granulation tissue. Treatment Goals Patient/Caregiver Goals Learn how to strengthen the PF . Learn how to safely get back to weight lifting and abdominal strengthening. Prior Functional Status Baseline Function- ADL's Independent Baseline Function- Mobility Modified Independent Baseline Function- Gait Walks 1 hr every other day, uses eliptical daily for 30' Baseline Function- Recreation/Hobbies Exercised in the gym 3x/week for weight training. Current Functional Impairments (Reported) Functional Limitations- ADL's When cleared for exercise (2-3 weeks ago), returned 3x/week. Functional Limitations- Mobility/Gait Limited mildly due to R knee pain. Functional Limitations- Recreation/ Decreased weights with weight Hobbies training. Personal Factors Other Personal Factors That May Effect PMH: Hypothyroidism, Celiac Therapy/Recovery disease, arthritis, can suffer from extreme insomnia controlled by medication. Bone on bone with R knee. PT-OP-C Subjective Start: 10/29/20 19:34 Freq: Status: Active Protocol: Document 11/12/20 15:09 LRN (Rec: 11/12/20 16:27 LRN [id number]) OP-PT Subjective Patient Comments Patient Comments No concerns. Will see Dr. Duncan in 2 days to check for granulation tissue. Is on estrogen creme and was was told at the last MD visit that her tissue health was better. Has had 2 vaginal births, no complications or leakage afterwards. ` PT-OP-I Pelvic Floor Start: 10/29/20 19:34 Freq: Status: Active Protocol: Document 11/12/20 15:09 LRN (Rec: 11/12/20 16:27 LRN [id number]) Pelvic Floor Assessment Pelvic Clock Pelvic Clock 3-6 Tenderness Pelvic Clock 6-9 Tenderness Contraction Ability Manual Muscle Testing Left 1 Manual Muscle Testing Right 2 Manual Muscle Testing Anterior 1 Manual Muscle Testing Posterior 3 Muscle Endurance (Seconds) 3 Comments Pelvic Floor Comments Quick Contractions: 10x but poor lateral wall contractions . PT-OP-J Posture/Palpation/Skin Start: 10/29/20 19:34 Freq: Status: Active Protocol: Document 11/05/20 15:11 LRN (Rec: 11/05/20 16:51 LRN [id number]) Posture Evaluation Position Standing T-Spine Posture Flattened L-Spine Posture Increased Lordosis Comments Posture Comments Tends to weight bear more forward on toes. PT-OP-K Range of Motion Start: 10/29/20 19:34 Freq: Status: Active Protocol: Document 11/12/20 15:09 LRN (Rec: 11/12/20 16:27 LRN [id number]) Hip Goniometric Range of Motion Hip Right Passive Testing Position Supine Abduction 20 Internal Rotation 20 External Rotation 62 Left Passive Testing Position Supine Abduction 32 Internal Rotation 25 External Rotation 75 PT-OP-M Strength Start: 10/29/20 19:34 Freq: Status: Active Protocol: Document 11/05/20 15:11 LRN (Rec: 11/05/20 16:51 LRN [id number]) Trunk Strength Trunk Manual Muscle Testing Testing Position Supine Core Stabilization Lacks stabilization with MMT of R hip flexor (L pelvic rotation) Hip Strength Hip Manual Muscle Testing Right Flexion (L2) 4+ Good+ Extension (S1) 5 Normal Abduction 5 Normal Adduction 2+ Poor+ External Rotation 3 Fair Internal Rotation 3+ Fair+ Left Flexion (L2) 5 Normal Extension (S1) 4 Good Abduction 5 Normal Adduction 5 Normal External Rotation 3 Fair Internal Rotation 3+ Fair+ PT-OP-Q Treatments Start: 10/29/20 19:34 Freq: Status: Active Protocol: Document 11/12/20 15:09 LRN (Rec: 11/12/20 16:27 LRN [id number]) Therapeutic Exercises Supine Exercises Piriformis stretch Supine Exercise Name Piriformis stretch Side right Reps/Minutes 2' Comments Extra time for training Lateral Hip stretch Supine Exercise Name Lateral Hip stretch Side right Reps/Minutes 3' Comments Extra time for training Fig 4 stretch Supine Exercise Name Fig 4 stretch (focus on right side) Side bilateral Reps/Minutes 5' Comments Extra time for training Long Holds Supine Exercise Name PF Long Hold contractions Comments MMT also taken Quick Flicks Supine Exercise Name PF Quick Flick contractions Comments MMT also taken Self-Care/Home Management Treatment Education Patient Education Home Exercise Program Other Education Reviewed Bladder Diary and discussed urination times, times between voids, just in case (JIC) voiding, nighttime water intake and general water intake. Discussed results of PF evaluation and discussed not overdoing PF contraction exercises. Recommended pt get okay by Dr. Duncan for soft tissue treatment of PF. Activities Self-Care/Home Management Activities Issued & reviewed HEP: R hip stretches: Fig 4, Lateral Hip , Piriformis (2 types). PT-OP-T Assessment and Plan Start: 10/29/20 19:34 Freq: Status: Active Protocol: Document 11/12/20 15:09 LRN (Rec: 11/12/20 16:27 LRN [id number]) Physical Therapy Assessment Goals Three Impairment Pt limited in prior function of exercise weight lifting/ab strengthening. Short Term Goal (STG) Pt will be educated in proper breathing technique for exercise and transfers. STG Duration 11/11/20 Shelter Goal (LTG) Pt will be able to safely get back to weight lifting and abdominal strengthening. LTG Duration 01/04/21 Two Impairment Urinary stress incontinence ( with coughing, sneezing) Short Term Goal (STG) Pt will be educated in proper coordination and strengthening of the PF. STG Duration 11/30/20 Shelter Goal (LTG) Pt will be able to maintain continence in the presence of a stress (coughing, sneezing). LTG Duration 01/04/21 One Impairment Pt lacks appropriate self care HEP. Short Term Goal (STG) Pt will be educated in proper PF care. STG Duration 11/30/20 Shelter Goal (LTG) Pt will be independent in a self care HEP. (11/12/20: Progressed HEP) LTG Duration 01/04/21 (11/12/20: Progressed) Progress Towards Goals Progress Comments Progressed her HEP. Assessment Summary Assessment Times between voids is normal (BM schedule not tracked), voiding times are mostly normal. Fluid intake is good (mostly 1/2 body wgt in ounces ). She is voiding just in case (JIC); therefore needed discussion of eliminating JIC voiding for bladder training purpose, and pt can eliminate nighttime drinking of water since her water consumption is within normal limts. Pt leaking ~1x/day with PF stress . Pt has R hip mobility restriction and tenderness/? tightness of L lateral PF wall . Stitches in vagina felt posteriorly, none in lateral flores. No bleeding noted. Redness of labia minor. PF tissues are fair with some dryness present, but pt is using estrogen cream at this time. Pt wanting to resume active lifestyle; therefore education in proper breathing techniques for exercise is needed. Pt doing self digital application of estrogen cream and felt comfortable with PF digital assessment. Pt demonstrates tenderness of ~2- 5 of PF Clock and minimal to no Quick Flick and Long hold contraction. She uses her gluteals, hip AD's and TA to help get a PF contraction. Her hip mobility is limited on the left; probably due to her R kne [id number] pain. Urinary Leakage appears possibly more due to PF L lateral wall pain/weakness and hip mobility (decreased R hip ER/IR mobility) asymmetry than PF weakness. Physical Therapy Plan Frequency and Duration Frequency of Treatment 1x/Week Plan of Care Start Date 11/05/20 Plan of Care End Date 01/04/21 Next Visit Focus/Plan Next Note Type Treatment Note Next Visit Plan Discuss constipation as related to her Bladder Diary. Educate pt on proper breathing, and with functional activities and exercise. Superficial PF TrP treatment for pain/tightness and pt education in L>R lateral strengthening, teach long holding PF contraction in abcense of substitute muscles. PF coordination training for stress urinary incontinence.
--- NOTE | 2020-11-19 16:36 | PT.OTN ---
Current Diagnoses Other specified disorders of muscle (11/19/20) Physical Therapy Treatment Note PT-OP-A Visit Information Start: 10/29/20 19:34 Freq: Status: Active Protocol: Document 11/19/20 14:32 LRN (Rec: 11/19/20 16:36 LRN [id number]) Out-Patient Physical Therapy Visit Information Visit Information Visit Type Treatment Note Visit Start Time 15:15 Visit Stop Time 16:08 Total Visit Minutes 53 Visit Number 3 Evaluation Information Evaluation Date 11/05/20 Precautions Precautions Hyste and removal of lg ovarian cyst, rectocele and cystocele repair by Dr. Duncan - 08/17/20, L TKA - 04/2019, Arthritis, planning R TKA surgery, history review: thin skin, IBS, hx of GI bleed, anxiety, insomnia, Hypothyroidism, squamous cell carcinoma. PT-OP-B Current Condition Start: 10/29/20 19:34 Freq: Status: Active Protocol: Document 11/05/20 15:11 LRN (Rec: 11/05/20 16:51 LRN [id number]) Current Condition History of Current Condition Onset Date 08/17/20 Current Complaints Urinary leakage with cough or sneeze or sudden mvmt. History of Current Condition 08/17/20: Hyste and removal of lg ovarian cyst, rectocele and cystocele repair. Has been cleared to do light weight lifting (as of 6 wks post surgery), <5-8# hand weights. she has been going to the gym and using machines at a weight that she feels is very easy (legs 50# AB/AD; Biceps/Triceps 10#, most Upper body in the 10-20# range), only does if she can do with very little abdominal use. Other knee R side needs to have a TKA surgery too. PMH: Hypothyroidism, Celiac disease, arthritis, can suffer from extreme insomnia controlled by medication, L TKA Future Testing and Treatments Planned Dr. Reyes f/u appt in 9 days for recheck on healing of vaginal granulation tissue. Treatment Goals Patient/Caregiver Goals Learn how to strengthen the PF . Learn how to safely get back to weight lifting and abdominal strengthening. Prior Functional Status Baseline Function- ADL's Independent Baseline Function- Mobility Modified Independent Baseline Function- Gait Walks 1 hr every other day, uses eliptical daily for 30' Baseline Function- Recreation/Hobbies Exercised in the gym 3x/week for weight training. Current Functional Impairments (Reported) Functional Limitations- ADL's When cleared for exercise (2-3 weeks ago), returned 3x/week. Functional Limitations- Mobility/Gait Limited mildly due to R knee pain. Functional Limitations- Recreation/ Decreased weights with weight Hobbies training. Personal Factors Other Personal Factors That May Effect PMH: Hypothyroidism, Celiac Therapy/Recovery disease, arthritis, can suffer from extreme insomnia controlled by medication. Bone on bone with R knee. PT-OP-C Subjective Start: 10/29/20 19:34 Freq: Status: Active Protocol: Document 11/19/20 14:32 LRN (Rec: 11/19/20 16:36 LRN [id number]) OP-PT Subjective Patient Comments Patient Comments Saw Dr. Duncan and she doesn't want any massage. She wants her to learn how to protect the PF while doing weight lifting exercises to prevent surgeries down the line. She doesn't have urinary leakage. PT-OP-I Pelvic Floor Start: 10/29/20 19:34 Freq: Status: Active Protocol: Document 11/12/20 15:09 LRN (Rec: 11/12/20 16:27 LRN [id number]) Pelvic Floor Assessment Pelvic Clock Pelvic Clock 3-6 Tenderness Pelvic Clock 6-9 Tenderness Contraction Ability Manual Muscle Testing Left 1 Manual Muscle Testing Right 2 Manual Muscle Testing Anterior 1 Manual Muscle Testing Posterior 3 Muscle Endurance (Seconds) 3 Comments Pelvic Floor Comments Quick Contractions: 10x but poor lateral wall contractions . PT-OP-J Posture/Palpation/Skin Start: 10/29/20 19:34 Freq: Status: Active Protocol: Document 11/05/20 15:11 LRN (Rec: 11/05/20 16:51 LRN [id number]) Posture Evaluation Position Standing T-Spine Posture Flattened L-Spine Posture Increased Lordosis Comments Posture Comments Tends to weight bear more forward on toes. PT-OP-K Range of Motion Start: 10/29/20 19:34 Freq: Status: Active Protocol: Document 11/12/20 15:09 LRN (Rec: 11/12/20 16:27 LRN [id number]) Hip Goniometric Range of Motion Hip Right Passive Testing Position Supine Abduction 20 Internal Rotation 20 External Rotation 62 Left Passive Testing Position Supine Abduction 32 Internal Rotation 25 External Rotation 75 PT-OP-M Strength Start: 10/29/20 19:34 Freq: Status: Active Protocol: Document 11/05/20 15:11 LRN (Rec: 11/05/20 16:51 LRN [id number]) Trunk Strength Trunk Manual Muscle Testing Testing Position Supine Core Stabilization Lacks stabilization with MMT of R hip flexor (L pelvic rotation) Hip Strength Hip Manual Muscle Testing Right Flexion (L2) 4+ Good+ Extension (S1) 5 Normal Abduction 5 Normal Adduction 2+ Poor+ External Rotation 3 Fair Internal Rotation 3+ Fair+ Left Flexion (L2) 5 Normal Extension (S1) 4 Good Abduction 5 Normal Adduction 5 Normal External Rotation 3 Fair Internal Rotation 3+ Fair+ PT-OP-Q Treatments Start: 10/29/20 19:34 Freq: Status: Active Protocol: Document 11/19/20 14:32 LRN (Rec: 11/19/20 16:36 LRN [id number]) Therapeutic Exercises Supine Exercises Hands/knees push on wedge Supine Exercise Name Hands/knees push on wedge Comments Extra time for coordination of breathing Heels off wall/roll in&out/ball Supine Exercise Name Heels off wall/roll in&out/ ball Comments Extra time for coordination of breathing Heels off wall/roll in&out Supine Exercise Name Heels off wall/roll in&out/ breathing Comments Extra time for coordination of breathing Feet on wall: trunk rot Supine Exercise Name Feet on wall: Trunk rotation/ breathing Comments Extra time for coordination of breathing Feet on wall/w ball/roll in/out Supine Exercise Name Feet on wall/w ball/roll in & out/breathing Comments Extra time for coordination of breathing Ball squeeze Supine Exercise Name Ball Squeeze roll in&out/ breathing Comments Extra time for coordination of breathing Feet on wall: LE roll in/out Supine Exercise Name Feet on wall: LE roll in&out/ breathing Comments Extra time for coordination of breathing Diaphragmatic Breathing Supine Exercise Name Diaphragmatic Breathing. Self-Care/Home Management Treatment Education Other Education Discussed her exercise breathing habits. Extensive education in breathing and coordination with exercise and general movements. Activities Self-Care/Home Management Activities Issued & reveiwed HEP: Diaphragmatic Breathing, LE Roll in/out Phase 1, 2, and feet on wall phase 3. PT-OP-T Assessment and Plan Start: 10/29/20 19:34 Freq: Status: Active Protocol: Document 11/19/20 14:32 LRN (Rec: 11/19/20 16:36 LRN [id number]) Physical Therapy Assessment Goals Three Impairment Pt limited in prior function of exercise weight lifting/ab strengthening. Short Term Goal (STG) Pt will be educated in proper breathing technique for exercise and transfers. (11/19/20: Pt educated in proper breathing with general movements). STG Duration 11/11/20 (11/19/20: Partially met) Intermediate Goal (LTG) Pt will be able to safely get back to weight lifting and abdominal strengthening. (11/19/20: Pt educated in proper coordinated breathing with exercise). LTG Duration 01/04/21 (11/19/20: Progressing towards goal) Two Impairment Urinary stress incontinence ( with coughing, sneezing) Short Term Goal (STG) Pt will be educated in proper coordination and strengthening of the PF. STG Duration 11/30/20 (11/19/20: MET GOAL) Intermediate Goal (LTG) Pt will be able to maintain continence in the presence of a stress (coughing, sneezing). LTG Duration 01/04/21 One Impairment Pt lacks appropriate self care HEP. Short Term Goal (STG) Pt will be educated in proper PF care. STG Duration 11/30/20 Contract Graphic Designer Goal (LTG) Pt will be independent in a self care HEP. (11/19/20: Progressed HEP) LTG Duration 01/04/21 (11/19/20: Progressed) Progress Towards Goals Progress Comments Progressed self care HEP. Assessment Summary Assessment Pt attends wanting therapy to focus on how to make her exercise more safe as per her referring physician. Pt very receptive to LE Roll in/out core strengthening program and focus on coordinated breathing with exercise. Not addressed was R hip mobility restriction. Physical Therapy Plan Frequency and Duration Frequency of Treatment 1x/Week Plan of Care Start Date 11/05/20 Plan of Care End Date 01/04/21 Next Visit Focus/Plan Next Note Type Treatment Note Next Visit Plan 1-2 more visits for review proper breathing with functional activities (add with transfers) and exercise. Educate in proper PF care. Review awareness training for long holding PF contraction in abcense of substitute muscles and with exercise.
--- NOTE | 2020-11-19 16:49 | PT.OTN ---
Current Diagnoses Other specified disorders of muscle (11/19/20) Physical Therapy Treatment Note PT-OP-A Visit Information Start: 10/29/20 19:34 Freq: Status: Active Protocol: Document 11/19/20 15:15 LRN (Rec: 11/19/20 16:36 LRN [id number]) Out-Patient Physical Therapy Visit Information Visit Information Visit Type Treatment Note Visit Start Time 15:15 Visit Stop Time 16:08 Total Visit Minutes 53 Visit Number 3 Evaluation Information Evaluation Date 11/05/20 Precautions Precautions Hyste and removal of lg ovarian cyst, rectocele and cystocele repair by Dr. Duncan - 08/17/20, L TKA - 04/2019, Arthritis, planning R TKA surgery, history review: thin skin, IBS, hx of GI bleed, anxiety, insomnia, Hypothyroidism, squamous cell carcinoma. PT-OP-B Current Condition Start: 10/29/20 19:34 Freq: Status: Active Protocol: Document 11/05/20 15:11 LRN (Rec: 11/05/20 16:51 LRN [id number]) Current Condition History of Current Condition Onset Date 08/17/20 Current Complaints Urinary leakage with cough or sneeze or sudden mvmt. History of Current Condition 08/17/20: Hyste and removal of lg ovarian cyst, rectocele and cystocele repair. Has been cleared to do light weight lifting (as of 6 wks post surgery), <5-8# hand weights. she has been going to the gym and using machines at a weight that she feels is very easy (legs 50# AB/AD; Biceps/Triceps 10#, most Upper body in the 10-20# range), only does if she can do with very little abdominal use. Other knee R side needs to have a TKA surgery too. PMH: Hypothyroidism, Celiac disease, arthritis, can suffer from extreme insomnia controlled by medication, L TKA Future Testing and Treatments Planned Dr. Reyes f/u appt in 9 days for recheck on healing of vaginal granulation tissue. Treatment Goals Patient/Caregiver Goals Learn how to strengthen the PF . Learn how to safely get back to weight lifting and abdominal strengthening. Prior Functional Status Baseline Function- ADL's Independent Baseline Function- Mobility Modified Independent Baseline Function- Gait Walks 1 hr every other day, uses eliptical daily for 30' Baseline Function- Recreation/Hobbies Exercised in the gym 3x/week for weight training. Current Functional Impairments (Reported) Functional Limitations- ADL's When cleared for exercise (2-3 weeks ago), returned 3x/week. Functional Limitations- Mobility/Gait Limited mildly due to R knee pain. Functional Limitations- Recreation/ Decreased weights with weight Hobbies training. Personal Factors Other Personal Factors That May Effect PMH: Hypothyroidism, Celiac Therapy/Recovery disease, arthritis, can suffer from extreme insomnia controlled by medication. Bone on bone with R knee. PT-OP-C Subjective Start: 10/29/20 19:34 Freq: Status: Active Protocol: Document 11/19/20 15:15 LRN (Rec: 11/19/20 16:36 LRN [id number]) OP-PT Subjective Patient Comments Patient Comments Saw Dr. Duncan and she doesn't want any massage. She wants her to learn how to protect the PF while doing weight lifting exercises to prevent surgeries down the line. She doesn't have urinary leakage. PT-OP-I Pelvic Floor Start: 10/29/20 19:34 Freq: Status: Active Protocol: Document 11/12/20 15:09 LRN (Rec: 11/12/20 16:27 LRN [id number]) Pelvic Floor Assessment Pelvic Clock Pelvic Clock 3-6 Tenderness Pelvic Clock 6-9 Tenderness Contraction Ability Manual Muscle Testing Left 1 Manual Muscle Testing Right 2 Manual Muscle Testing Anterior 1 Manual Muscle Testing Posterior 3 Muscle Endurance (Seconds) 3 Comments Pelvic Floor Comments Quick Contractions: 10x but poor lateral wall contractions . PT-OP-J Posture/Palpation/Skin Start: 10/29/20 19:34 Freq: Status: Active Protocol: Document 11/05/20 15:11 LRN (Rec: 11/05/20 16:51 LRN [id number]) Posture Evaluation Position Standing T-Spine Posture Flattened L-Spine Posture Increased Lordosis Comments Posture Comments Tends to weight bear more forward on toes. PT-OP-K Range of Motion Start: 10/29/20 19:34 Freq: Status: Active Protocol: Document 11/12/20 15:09 LRN (Rec: 11/12/20 16:27 LRN [id number]) Hip Goniometric Range of Motion Hip Right Passive Testing Position Supine Abduction 20 Internal Rotation 20 External Rotation 62 Left Passive Testing Position Supine Abduction 32 Internal Rotation 25 External Rotation 75 PT-OP-M Strength Start: 10/29/20 19:34 Freq: Status: Active Protocol: Document 11/05/20 15:11 LRN (Rec: 11/05/20 16:51 LRN [id number]) Trunk Strength Trunk Manual Muscle Testing Testing Position Supine Core Stabilization Lacks stabilization with MMT of R hip flexor (L pelvic rotation) Hip Strength Hip Manual Muscle Testing Right Flexion (L2) 4+ Good+ Extension (S1) 5 Normal Abduction 5 Normal Adduction 2+ Poor+ External Rotation 3 Fair Internal Rotation 3+ Fair+ Left Flexion (L2) 5 Normal Extension (S1) 4 Good Abduction 5 Normal Adduction 5 Normal External Rotation 3 Fair Internal Rotation 3+ Fair+ PT-OP-Q Treatments Start: 10/29/20 19:34 Freq: Status: Active Protocol: Document 11/19/20 15:15 LRN (Rec: 11/19/20 16:36 LRN [id number]) Therapeutic Exercises Supine Exercises Hands/knees push on wedge Supine Exercise Name Hands/knees push on wedge Comments Extra time for coordination of breathing Heels off wall/roll in&out/ball Supine Exercise Name Heels off wall/roll in&out/ ball Comments Extra time for coordination of breathing Heels off wall/roll in&out Supine Exercise Name Heels off wall/roll in&out/ breathing Comments Extra time for coordination of breathing Feet on wall: trunk rot Supine Exercise Name Feet on wall: Trunk rotation/ breathing Comments Extra time for coordination of breathing Feet on wall/w ball/roll in/out Supine Exercise Name Feet on wall/w ball/roll in & out/breathing Comments Extra time for coordination of breathing Ball squeeze Supine Exercise Name Ball Squeeze roll in&out/ breathing Comments Extra time for coordination of breathing Feet on wall: LE roll in/out Supine Exercise Name Feet on wall: LE roll in&out/ breathing Comments Extra time for coordination of breathing Diaphragmatic Breathing Supine Exercise Name Diaphragmatic Breathing. Self-Care/Home Management Treatment Education Other Education Discussed her exercise breathing habits. Extensive education in breathing and coordination with exercise and general movements. Activities Self-Care/Home Management Activities Issued & reveiwed HEP: Diaphragmatic Breathing, LE Roll in/out Phase 1, 2, and feet on wall phase 3. PT-OP-T Assessment and Plan Start: 10/29/20 19:34 Freq: Status: Active Protocol: Document 11/19/20 15:15 LRN (Rec: 11/19/20 16:36 LRN [id number]) Physical Therapy Assessment Goals Three Impairment Pt limited in prior function of exercise weight lifting/ab strengthening. Short Term Goal (STG) Pt will be educated in proper breathing technique for exercise and transfers. (11/19/20: Pt educated in proper breathing with general movements). STG Duration 11/11/20 (11/19/20: Partially met) Mcfp Goal (LTG) Pt will be able to safely get back to weight lifting and abdominal strengthening. (11/19/20: Pt educated in proper coordinated breathing with exercise). LTG Duration 01/04/21 (11/19/20: Progressing towards goal) Two Impairment Urinary stress incontinence ( with coughing, sneezing) Short Term Goal (STG) Pt will be educated in proper coordination and strengthening of the PF. STG Duration 11/30/20 (11/19/20: MET GOAL) Mcfp Goal (LTG) Pt will be able to maintain continence in the presence of a stress (coughing, sneezing). LTG Duration 01/04/21 One Impairment Pt lacks appropriate self care HEP. Short Term Goal (STG) Pt will be educated in proper PF care. STG Duration 11/30/20 Wind Turbine Technician Goal (LTG) Pt will be independent in a self care HEP. (11/19/20: Progressed HEP) LTG Duration 01/04/21 (11/19/20: Progressed) Progress Towards Goals Progress Comments Progressed self care HEP. Assessment Summary Assessment Pt attends wanting therapy to focus on how to make her exercise more safe as per her referring physician. Pt very receptive to LE Roll in/out core strengthening program and focus on coordinated breathing with exercise. Not addressed was R hip mobility restriction. Physical Therapy Plan Frequency and Duration Frequency of Treatment 1x/Week Plan of Care Start Date 11/05/20 Plan of Care End Date 01/04/21 Next Visit Focus/Plan Next Note Type Treatment Note Next Visit Plan 1-2 more visits for review proper breathing with functional activities (add with transfers) and exercise. Educate in proper PF care. Review awareness training for long holding PF contraction in abcense of substitute muscles and with exercise.
--- NOTE | 2020-11-26 16:18 | PT.OTN ---
Current Diagnoses Other specified disorders of muscle (11/26/20) Physical Therapy Treatment Note PT-OP-A Visit Information Start: 10/29/20 19:34 Freq: Status: Active Protocol: Document 11/26/20 15:10 LRN (Rec: 11/26/20 16:16 LRN [id number]) Out-Patient Physical Therapy Visit Information Visit Information Visit Type Treatment Note Visit Start Time 15:10 Visit Stop Time 16:01 Total Visit Minutes 51 Visit Number 4 Evaluation Information Evaluation Date 11/05/20 Precautions Precautions Hyste and removal of lg ovarian cyst, rectocele and cystocele repair by Dr. Duncan - 08/17/20, L TKA - 04/2019, Arthritis, planning R TKA surgery, history review: thin skin, IBS, hx of GI bleed, anxiety, insomnia, Hypothyroidism, squamous cell carcinoma. PT-OP-B Current Condition Start: 10/29/20 19:34 Freq: Status: Active Protocol: Document 11/05/20 15:11 LRN (Rec: 11/05/20 16:51 LRN [id number]) Current Condition History of Current Condition Onset Date 08/17/20 Current Complaints Urinary leakage with cough or sneeze or sudden mvmt. History of Current Condition 08/17/20: Hyste and removal of lg ovarian cyst, rectocele and cystocele repair. Has been cleared to do light weight lifting (as of 6 wks post surgery), <5-8# hand weights. she has been going to the gym and using machines at a weight that she feels is very easy (legs 50# AB/AD; Biceps/Triceps 10#, most Upper body in the 10-20# range), only does if she can do with very little abdominal use. Other knee R side needs to have a TKA surgery too. PMH: Hypothyroidism, Celiac disease, arthritis, can suffer from extreme insomnia controlled by medication, L TKA Future Testing and Treatments Planned Dr. Reyes f/u appt in 9 days for recheck on healing of vaginal granulation tissue. Treatment Goals Patient/Caregiver Goals Learn how to strengthen the PF . Learn how to safely get back to weight lifting and abdominal strengthening. Prior Functional Status Baseline Function- ADL's Independent Baseline Function- Mobility Modified Independent Baseline Function- Gait Walks 1 hr every other day, uses eliptical daily for 30' Baseline Function- Recreation/Hobbies Exercised in the gym 3x/week for weight training. Current Functional Impairments (Reported) Functional Limitations- ADL's When cleared for exercise (2-3 weeks ago), returned 3x/week. Functional Limitations- Mobility/Gait Limited mildly due to R knee pain. Functional Limitations- Recreation/ Decreased weights with weight Hobbies training. Personal Factors Other Personal Factors That May Effect PMH: Hypothyroidism, Celiac Therapy/Recovery disease, arthritis, can suffer from extreme insomnia controlled by medication. Bone on bone with R knee. PT-OP-C Subjective Start: 10/29/20 19:34 Freq: Status: Active Protocol: Document 11/26/20 15:10 LRN (Rec: 11/26/20 16:16 LRN [id number]) OP-PT Subjective Patient Comments Patient Comments Doing great with her exercises . Just wants to know what not to do that would be detrimental to the PF. States she has not leaked since last time in therapy and has sneezed. PT-OP-I Pelvic Floor Start: 10/29/20 19:34 Freq: Status: Active Protocol: Document 11/12/20 15:09 LRN (Rec: 11/12/20 16:27 LRN [id number]) Pelvic Floor Assessment Pelvic Clock Pelvic Clock 3-6 Tenderness Pelvic Clock 6-9 Tenderness Contraction Ability Manual Muscle Testing Left 1 Manual Muscle Testing Right 2 Manual Muscle Testing Anterior 1 Manual Muscle Testing Posterior 3 Muscle Endurance (Seconds) 3 Comments Pelvic Floor Comments Quick Contractions: 10x but poor lateral wall contractions . PT-OP-J Posture/Palpation/Skin Start: 10/29/20 19:34 Freq: Status: Active Protocol: Document 11/05/20 15:11 LRN (Rec: 11/05/20 16:51 LRN [id number]) Posture Evaluation Position Standing T-Spine Posture Flattened L-Spine Posture Increased Lordosis Comments Posture Comments Tends to weight bear more forward on toes. PT-OP-K Range of Motion Start: 10/29/20 19:34 Freq: Status: Active Protocol: Document 11/12/20 15:09 LRN (Rec: 11/12/20 16:27 LRN [id number]) Hip Goniometric Range of Motion Hip Right Passive Testing Position Supine Abduction 20 Internal Rotation 20 External Rotation 62 Left Passive Testing Position Supine Abduction 32 Internal Rotation 25 External Rotation 75 PT-OP-M Strength Start: 10/29/20 19:34 Freq: Status: Active Protocol: Document 11/05/20 15:11 LRN (Rec: 11/05/20 16:51 LRN [id number]) Trunk Strength Trunk Manual Muscle Testing Testing Position Supine Core Stabilization Lacks stabilization with MMT of R hip flexor (L pelvic rotation) Hip Strength Hip Manual Muscle Testing Right Flexion (L2) 4+ Good+ Extension (S1) 5 Normal Abduction 5 Normal Adduction 2+ Poor+ External Rotation 3 Fair Internal Rotation 3+ Fair+ Left Flexion (L2) 5 Normal Extension (S1) 4 Good Abduction 5 Normal Adduction 5 Normal External Rotation 3 Fair Internal Rotation 3+ Fair+ PT-OP-Q Treatments Start: 10/29/20 19:34 Freq: Status: Active Protocol: Document 11/26/20 15:10 LRN (Rec: 11/26/20 16:16 LRN [id number]) Therapeutic Exercises Supine Exercises PF contraction on Wedge Supine Exercise Name PF awareness training on wedge Reps/Minutes 3' Comments Pt not able to feel a PF lift while on wedge TA on Wedge Supine Exercise Name TA on wedge Reps/Minutes 3' Comments Discussed and given v. cuing for breathing Heels off wall/roll in&out Supine Exercise Name Heels off wall/roll in&out/ breathing Reps/Minutes 3' Comments Extra time for coordination of breathing Feet on wall: trunk rot Supine Exercise Name Feet on wall: Trunk rotation/ breathing Reps/Minutes 6' Comments Extra time for coord of breathing & trunk rotating Feet on wall/w ball/roll in/out Supine Exercise Name Feet on wall/w ball/roll in & out/breathing Equipment Used Wedge, ball, TB lev 2 Reps/Minutes 6' Comments Extra time for coordination of breathing Feet on wall: LE roll in/out Supine Exercise Name Feet on wall: LE roll in&out/ breathing Equipment Used Wedge Reps/Minutes 6' Comments Extra time for addition of ball & band after review Standing Exercises PF awareness training Standing Exercise Name Modified Downward dog ( Hamstring stretch position) Reps/Minutes 3' Comments Pt able to feel PF lift Self-Care/Home Management Treatment Education Other Education Reviewed proper use of breath with ex and transfers. Discussed & educated pt in general vulvar care (subjects: clothing & laundry, wexual intercourse, physical ex & everyday living) Discussed PF awareness feeling before strengthening ex's at gym. Activities Self-Care/Home Management Activities Issued & reviewed self care handout of General Vulvar Care. Issued Lev 2 TBand with I/S for use with LE roll in/out feet on wall. PT-OP-T Assessment and Plan Start: 10/29/20 19:34 Freq: Status: Active Protocol: Document 11/26/20 15:10 LRN (Rec: 11/26/20 16:16 LRN [id number]) Physical Therapy Assessment Goals Three Impairment Pt limited in prior function of exercise weight lifting/ab strengthening. Short Term Goal (STG) Pt will be educated in proper breathing technique for exercise and transfers. STG Duration 11/11/20 (11/26/20: MET GOAL ) Stock Letterer Goal (LTG) Pt will be able to safely get back to weight lifting and abdominal strengthening. LTG Duration 01/04/21 (11/26/20: MET GOAL) Two Impairment Urinary stress incontinence ( with coughing, sneezing) Short Term Goal (STG) Pt will be educated in proper coordination and strengthening of the PF. STG Duration 11/30/20 (11/19/20: MET GOAL) Stock Letterer Goal (LTG) Pt will be able to maintain continence in the presence of a stress (coughing, sneezing). LTG Duration 01/04/21 (11/26/20: MET GOAL) One Impairment Pt lacks appropriate self care HEP. Short Term Goal (STG) Pt will be educated in proper PF care. (11/26/20: Educated pt in general vulvar care). STG Duration 11/30/20 (11/26/20: MET GOAL ) Fpc Goal (LTG) Pt will be independent in a self care HEP. LTG Duration 01/04/21 (11/26/20: MET GOAL) Progress Towards Goals Progress Towards Goals Goals Met Assessment Summary Assessment Pt demonstrates good knowledge of proper PF awareness and breathing with her HEP. She appears to have good awareness of protecting her PF from further worsening of her cystocele and rectocele during exercise. She was able to gain good awareness of a PF lift; and will be able to perform the contraction prior to strengthening exercises that might create intra- abdominal pressure. The pt has met her goals and is ready to be placed on her independent HEP. Physical Therapy Plan Discharge Physical Therapy Discharge Reasons Goals Met Discharge Comments Pt has done well with therapy. Thank you for your referral.
== END 2020-11-27 14:12 | disposition home or self-care (01) ==
LOC: PHYS 15:00
PROVIDERS: Family Provider Family Medicine; PCP Family Medicine; Referring Provider Obstetrics & Gynecology; Visit Provider Obstetrics & Gynecology
DX: M62.89 Other specified disorders of muscle (principal)
CPT/HCPCS: 97110; 97162; 97535

== ENCOUNTER → 2021-05-28 16:33 | Outpatient (CLI) | payer MEDICARE, OTHER, SELFPAY ==
[2020-08-17 16:15] VITALS: BMI 20.1
[2021-05-28 18:48] LABS: Thyroid Stimulating Hormone 2.91 uIU/mL (0.47-4.68)
[2021-06-06 00:06] LABS: DQ8 (DQA1 03XX, DQB1 0302) Negative (.)
== END ==
PROVIDERS: Family Provider Family Medicine; PCP Family Medicine; Referring Provider Family Medicine; Visit Provider Family Medicine
DX: E03.9 Hypothyroidism, unspecified (principal); K90.0 Celiac disease
CPT/HCPCS: 36415; 81377; 84443

== ENCOUNTER → 2022-06-13 09:44 | Outpatient (CLI) | payer MEDICARE, OTHER, SELFPAY ==
[2020-08-17 16:15] VITALS: BMI 20.1
[2022-06-13 10:43] LABS: COVID19 -Nasal RAPID Negative (Negative)
== END ==
PROVIDERS: Family Provider Family Medicine; PCP Family Medicine; Visit Provider Surgery
DX: Z20.822 Contact with and (suspected) exposure to COVID-19 (principal); Z01.812 Encounter for preprocedural laboratory examination
CPT/HCPCS: 87635; C9803

== ENCOUNTER 2022-06-16 12:26 | Day surgery (SDC) | payer MEDICARE, OTHER, SELFPAY ==
[2020-08-17 16:15] VITALS: BMI 20.1
--- NOTE | 2022-06-16 | PATH_ITS ---
[facility] Accession Number: [id number] . 01 Material submitted: . PART A: duodenum - DUODENUM BIOPSY PART B: gastrointestinal site - STOMACH ANTRUM BIOPSY . 01 Diagnosis: A. Duodenum, Biopsy: Duodenal mucosa within normal limits. Features of celiac disease are not seen. . B. Stomach, Antrum, Biopsy: Gastric antral-type mucosa with mild superficial chronic inflammation and reactive changes. Gastric corpus-type mucosa with changes suggestive of proton pump inhibitor therapy. Negative for intestinal metaplasia and dysplasia. No evidence of Helicobacter pylori organisms by immunohistochemistry. MRV 06/20/2022 1420 Local . 01 Electronically signed: . Dee Dee Price MD, Pathologist NPI- [id number] . 01 Gross description: . Part A: DUODENUM BIOPSY: Received in formalin is 1 fragment(s) of mcnair, soft tissue measuring 0.5 x 0.3 x 0.3 cm submitted entirely in 1 cassette(s) Part B: STOMACH ANTRUM BIOPSY: Received in formalin are 2 fragment(s) of mcnair, soft tissue measuring 0.3 x 0.1 x 0.1 cm to 0.2 x 0.2 x 0.1 cm submitted entirely in 1 cassette(s) /CPE 06/18/2022 0713 Local . 01 Microscopic: . H. pylori immunohistochemistry is performed on block B, with appropriately staining external controls, and is negative for Helicobacter pylori organisms. . * This test was developed and its performance characteristics determined by [facility]. It has not been cleared or approved by the U.S. Food and Drug Administration. The FDA has determined that such clearance or approval is not necessary. This test is used for clinical purposes. It should not be regarded as investigational or for research. . 01 Pathologist provided ICD-10: R11.2 . 01 CPT . 616895, 696469, S76238 Specimen Comment: A courtesy copy of this report has been sent to [phone] Performed at: 01 [facility] [address] [place] [address] [id number] MD Tapan Pandey MD Phone: [phone]
[2022-06-16 12:57] VITALS: BMI 18.6
[2022-06-16 13:03] VITALS: BP 145/80; PULSE 80; RESP 16; TEMP 37.4; O2SAT 98
[2022-06-16] MEDS: LACTATED RINGERS 1,000 ML 42 ML IV (13:10)
--- NOTE | 2022-06-16 13:26 | PM.HP.1 ---
History of Present Illness History of Present Illness Date Patient Seen: 06/16/22 Time Patient Seen: 13:26 Chief complaint: EGD Narrative: I reviewed the recent office note by Dr. Rain. No significant changes. The main complaint is nausea. Patient History Medical History Anxiety BCC (basal cell carcinoma) GI bleed (~2011) Hypothyroidism IBS (irritable bowel syndrome) Insomnia Osteoarthritis SCC (squamous cell carcinoma) Thin skin Surgical History Hx of arthroscopy of right knee Hx of eye surgery Status post arthroscopy Status post tubal ligation Family & Social History Family History Father Hypertension High cholesterol Grandmother Alcoholism Mother Heart disease Hypertension High cholesterol Alcoholism Stroke Sister Age: 72 Hypertension Alcoholism Social History: household members spouse lives independently Yes caregiver/support person No Tobacco & Substance use: Smoking Status Former smoker alcohol intake current alcohol intake frequency a few times a month Substance Use Type does not use Meds Home Medications and Allergies Home Medications Medication Instructions Recorded Confirmed Type amitriptyline 10 mg tablet 20 mg PO HS ##0 11/16/17 06/16/22 History diazepam 2 mg tablet 4 mg PO HS ##0 11/16/17 06/16/22 History calcium-magnesium 300 mg-300 mg 1 tab PO DAILY 09/20/18 06/16/22 History tablet multivitamin 1 tab PO DAILY 09/20/18 06/16/22 History acetaminophen 500 mg tablet 1,000 mg PO Q6H PRN Pain 03/24/19 06/16/22 History (Acetaminophen Pain Relief) levothyroxine 50 mcg tablet 50 mcg PO DAILY #90 tabs 05/29/21 06/16/22 Rx estradiol 0.01% (0.1 mg/gram) 0.5 g vaginal 2XW #42.5 grams 05/05/22 06/16/22 Rx vaginal cream [id number] ox-Zn ER 500 1 tab PO DAILY 06/16/22 06/16/22 History mcg-750 mg-1.5 mg-25 mg tablet,ER Allergies Allergy/AdvReac Type Severity Reaction Status Date / Time ketorolac AdvReac Mild Abdominal Verified 06/16/22 12:53 Pain hydrocodone AdvReac Unknown dizziness, Verified 06/16/22 12:53 nausea Review of Systems Review of Systems ROS: Yes All systems reviewed with the patient and are negative except as otherwise documented Exam Vital Signs (past 8 hours): - 06/16/22 13:03 Temperature 99.3 F Pulse Rate 80 Respiratory Rate 16 Blood Pressure 145/80 H Pulse Oximetry 98 Oxygen Delivery Method Room Air Oxygen Delivery Method Room Air Const General: cooperative HENMT Head: normal to inspection Eyes General: appearance normal, both eyes and all related structures Neck Neck: normal visual inspection Chest Chest: normal inspection of the chest Resp Effort & Inspection: normal respiratory effort Cardio Rate: regular rate GI Inspection: normal to inspection Skin General: no rashes or lesions noted Neuro General: patient alert and patient awake Extrem General: normal to inspection and no pedal edema Psych Appearance: grossly normal Assessment & Plan Assessment & Plan narrative: 76-year-old female with chronic nausea of uncertain etiology. Updated EGD with biopsies is pursued today. Time Spent With Patient Critical Care time: I spent a total of [] minutes of critical care time on this patient's care today; this time is exclusive of procedural time.
--- NOTE | 2022-06-16 13:28 | PM.PREOP ---
Pre-operative Note COVID-19 COVID-19 status: Negative Result date/Date tested (Pos, Neg/Pending): 06/13/22 Criteria for continued procedure: Possibility delay results in more complex future surgery or treatment Interval Note History & Physical reviewed/Exam performed by Physician: Yes Changes to H&P: No ASA Class (for procedural sedation): II
--- NOTE | 2022-06-16 13:39 | P.OP.EGD_ITS ---
Operative Date/Time/Diagnoses Date of procedure: 06/16/22 Time of procedure: 13:39 Pre-op diagnosis: Nausea occasional vomiting Post-op diagnosis: same Procedure & Clinicians Study performed: EGD with biopsies Same procedure as scheduled: Yes Indications: Nausea with occasional vomiting Surgeon: Jaron Andrade Procedure Notes SCOAP/Timeout: Done Procedure in detail: After the risks and benefits were explained, written and verbal informed consent was obtained. The patient was brought into the procedure room and placed into the left lateral decubitus position. Please see nurse telephone coin box collector notes for sedation details. The scope was introduced into the mouth through the bite block and advanced under direct visualization to the 2nd portion of the duodenum. The scope was slowly withdrawn carefully examining the mucosa for any defects or lesions. Retroflexed views were accomplished in the stomach. The stomach was decompressed, the scope was then removed from the patient who tolerated the procedure well. Sedation minutes: 8 Complications: none Impression: 1. Duodenum: This was normal from the bulb through to the 2nd portion. Random D2 biopsies were taken for exclusion of sprue. 2. Stomach: The patient had a fairly J shaped stomach. Mild erythema was noted in the antrum. Biopsies were taken from the antral mucosa for exclusion of Helicobacter or any other underlying histopathology. The remainder of the stomach appeared visually unremarkable. 3. Esophagus: Squamocolumnar junction correlated with the top of the gastric folds. GEJ was at 40 cm from the incisors. There was a very subtle sliding hiatal hernia perhaps maybe a cm or so. No esophageal pathology was appreciated throughout. Endoscopic diagnosis 1. Very subtle small sliding hiatal hernia 2. J-shaped stomach 3. Mild gastropathy Post-procedure Plan for aftercare: 1. Await histopathology. 2. If Helicobacter is found, it will need to be eradicated with standard triple therapy. 3. Follow up GI clinic Disposition: PACU
[2022-06-16 13:41] VITALS: BP 97/58; PULSE 84; RESP 19; TEMP 36.4; O2SAT 966
[2022-06-16 13:46] VITALS: BP 103/57; PULSE 77; RESP 18; O2SAT 97
[2022-06-16 13:51] VITALS: BP 104/64; PULSE 82; RESP 11; O2SAT 98
[2022-06-16 13:56] VITALS: BP 111/76; PULSE 82; RESP 15; TEMP 36.5; O2SAT 98
== END 2022-06-16 14:25 | disposition home or self-care (01) ==
PROVIDERS: Family Provider Family Medicine; PCP Family Medicine; Referring Provider Internal Medicine Gastroenterology; Visit Provider Internal Medicine Gastroenterology
PROC: 0DJ08ZZ Inspection of Upper Intestinal Tract, Via Natural or Artificial Opening Endoscopic (ICD-10-PCS; CPT 43235; principal; 2022-06-16 13:30)
DX: K29.50 Unspecified chronic gastritis without bleeding (principal); K31.9 Disease of stomach and duodenum, unspecified; K44.9 Diaphragmatic hernia without obstruction or gangrene
CPT/HCPCS: 43239; J2704

== ENCOUNTER → 2022-09-24 11:33 | Outpatient (CLI) | payer MEDICARE, OTHER, SELFPAY ==
[2020-08-17 16:15] VITALS: BMI 20.1
--- NOTE | 2022-09-24 | DI.RAD.S_ITS ---
PROCEDURE: XR ACUTE ABDOMEN SERIES INDICATIONS: abdominal distension (gaseous), nausea TECHNIQUE: One view chest and two views of the abdomen were acquired. COMPARISON: None. FINDINGS: Surgical changes and devices: None. Chest: Lungs are clear. Heart size is normal. No pleural effusions. No pneumoperitoneum. Abdomen: No pathologically dilated gas-filled loops of bowel. A large amount of stool is present in the colon. IMPRESSION: 1. No pathologically dilated gas-filled loops of bowel. 2. No acute cardiopulmonary abnormality. Dictated by: Dann Fleming M.D. on 09/24/2022 at 15:26 Approved by: Dann Fleming M.D. on 09/24/2022 at 15:30
== END ==
PROVIDERS: Family Provider Family Medicine; PCP Family Medicine; Referring Provider Internal Medicine Gastroenterology; Visit Provider Internal Medicine Gastroenterology
DX: R14.0 Abdominal distension (gaseous) (principal); R11.0 Nausea; R19.8 Other specified symptoms and signs involving the digestive system and abdomen
CPT/HCPCS: 74022

== ENCOUNTER 2022-10-14 13:36 | Emergency (ER) | payer MEDICARE, OTHER, SELFPAY ==
[2020-08-17 16:15] VITALS: BMI 20.1
[2022-10-14] VITALS (13 sets, daily range): BP systolic 114–144; BP diastolic 67–85; PULSE 85–86; RESP 15–16; TEMP 37.3; O2SAT 96–100; BMI 18.8
--- NOTE | 2022-10-14 13:51 | DI.RAD.S_ITS ---
PROCEDURE: XR HIP W PEL IF DONE LT 2V INDICATIONS: fall/injury TECHNIQUE: AP pelvis with lateral view(s) of the left hip(s). COMPARISON: None. FINDINGS: Bones: Mildly displaced subcapital left femoral neck fracture.. Pelvic ring appears intact. No suspicious bony lesions. Mild bilateral hip osteoarthritic degenerative changes. Soft tissues: The visualized bowel gas pattern is normal. No suspicious soft tissue calcifications. IMPRESSION: Subcapital left femur fracture. Dictated by: Merle Garcia MD, PhD on 10/14/2022 at 14:22 Approved by: Merle Garcia MD, PhD on 10/14/2022 at 14:23
[2022-10-14 15:07] LABS: Add Manual Diff / Slide Review NO; Basophils Absolute Auto 0 /uL (0-100); Basophils Percent Auto 0.8 % (0-2); Eosinophils Absolute Auto 0 /uL (0-450); Eosinophils Percent Auto 0.6 % (2-4); Hematocrit 33.5 % (36-46); Hemoglobin 11.4 g/dL (12.0-16.0); Lymphocytes Absolute Auto 800 /uL (1100-4500); Lymphocytes Percent Auto 12.5 % (25-40); Mean Corpuscular HGB Conc 33.9 % (30-36); Mean Corpuscular Hemoglobin 31.7 PG (26-34); Mean Corpuscular Volume 93.5 fL (80-100); Monocytes Absolute Auto 300 /uL (0-900); Monocytes Percent Auto 5.5 % (3-14); Neutrophils Absolute Auto 5000 /uL (1500-7000); Neutrophils Percent Auto 80.6 % (50-75); Platelet Count 183 X10^3/uL (150-400); Red Blood Cell Count 3.59 X10^6/uL (4.0-5.2); Red Cell Distribution Width 12.9 % (11.6-14.8); White Blood Cell Count 6.2 X10^3/uL (4.5-11.0)
--- NOTE | 2022-10-14 15:11 | DI.CT.S_ITS ---
PROCEDURE: CT PEL WO CON INDICATIONS: explore Left femur fx TECHNIQUE: After the administration of oral contrast, 5 mm thick sections acquired from the iliac crests to the symphysis. 5 mm coronal and sagittal reformats were then performed. For radiation dose reduction, the following was used: automated exposure control, adjustment of mA and/or kV according to patient size. COMPARISON: [facility], CR, XR HIP W PEL IF DONE LT 2V, 10/14/2022, 13:57. FINDINGS: Image quality: Excellent. Peritoneum and bowel: Bowel loops demonstrate normal wall thickness and caliber. No free fluid or air. Significant colonic stool is present without obstruction. Genitourinary: Bladder wall thickness is normal. Nodes and vessels: No iliac, pelvic, or inguinal adenopathy by size criteria. Iliac vessels demonstrate normal size. Bones: There is a mildly angulated subcapital left femoral fracture. Remaining osseous structures are. Miscellaneous: No inguinal hernias. IMPRESSION: Left subcapital femoral fracture with mild angulation. Prominent stool consistent with constipation. No obstruction. Dictated by: Tere Krishnamurthy M.D. on 10/14/2022 at 15:25 Approved by: Tere Krishnamurthy M.D. on 10/14/2022 at 15:26
--- NOTE | 2022-10-14 15:26 | ED.FALL ---
HPI - Fall General Chief Complaint: Fall Stated Complaint: Fall, L hip, can't walk Time Seen by Provider: 10/14/22 15:01 Source: patient Mode of arrival: Wheelchair History of Present Illness HPI Narrative: Patient here for left hip pain. Here with . NPO since 10:00 a.m.. Patient was walking on a trail when she hit a tree root, and fell on her left hip. She required assistance to walk back to her car. Prior history left knee surgery 3 years ago here with Dr. Aguilar. Denies any history of heart attack strokes or diabetes. Is not on any blood thinners. Pain controlled at this time Related Data Home Medications Medication Instructions Recorded Confirmed amitriptyline 10 mg tablet 20 mg PO HS ##0 11/16/17 10/13/22 diazepam 2 mg tablet 4 mg PO HS ##0 11/16/17 10/13/22 calcium-magnesium 300 mg-300 mg 1 tab PO DAILY 09/20/18 10/13/22 tablet multivitamin 1 tab PO DAILY 09/20/18 10/13/22 acetaminophen 500 mg tablet 1,000 mg PO Q6H PRN Pain 03/24/19 10/13/22 (Acetaminophen Pain Relief) QO-tytlngrkwzo-aivmtd ox-Zn ER 500 1 tab PO DAILY 06/16/22 10/13/22 mcg-750 mg-1.5 mg-25 mg tablet,ER vitamin D3 125 mcg (5,000 cap PO no sun exposure 10/13/22 10/13/22 unit)-vitamin K2 90 mcg capsule Previous Rx's Medication Instructions Recorded estradiol 0.01% (0.1 mg/gram) 0.5 g vaginal 2XW #42.5 grams 05/05/22 vaginal cream levothyroxine 50 mcg tablet 50 mcg PO DAILY #90 tabs 08/06/22 Allergies Allergy/AdvReac Type Severity Reaction Status Date / Time ketorolac AdvReac Mild Abdominal Verified 10/14/22 13:46 Pain hydrocodone AdvReac Unknown dizziness, Verified 10/14/22 13:46 nausea Review of Systems Review of Systems Narrative: GENERAL: negative chills, fatigue, malaise, fever, sweats. HEENT: negative sinus pain, ear pain, sore throat RESPIRATORY: negative dyspnea, cough CARDIOVASCULAR: negative chest pain, palpitations GASTROINTESTINAL: negative nausea, vomiting, abdominal pain : negative dysuria, frequency, hematuria MUSCULOSKELETAL: Positive muscle or bony pain SKIN: negative rash, skin lesions NEUROLOGIC: negative weakness, numbness ROS Unobtainable: All systems reviewed & are unremarkable except as noted in HPI and below Patient History Medical History Anxiety BCC (basal cell carcinoma) GI bleed (~2011) History of GI bleed Hypothyroidism IBS (irritable bowel syndrome) Insomnia Osteoarthritis SCC (squamous cell carcinoma) Thin skin Surgical History Hx of arthroscopy of right knee Hx of eye surgery Status post arthroscopy Status post tubal ligation Family History Father Hypertension High cholesterol Grandmother Alcoholism Mother Heart disease Hypertension High cholesterol Alcoholism Stroke Sister Age: 72 Hypertension Alcoholism Social History marital status: number of children: 2 household members: spouse lives independently: Yes caregiver/support person: No housing: house occupational status: previously employed Smoking Status: Former smoker second hand exposure: No alcohol intake: current substance use type: does not use Smoking Status: Former smoker alcohol intake frequency: a few times a month Substance Use Type: does not use Exam Narrative Exam Narrative: GENERAL: in no distress, not toxic not dyspneic HEAD: Normocephalic. Nontender scalp and face EYES: Pupils equal round ENT: Mucous membranes moist. NECK: Trachea midline. No posterior cervical midline tenderness or step-off CARDIOVASCULAR: Regular rate and rhythm without murmurs RESPIRATORY: Clear to auscultation. Breath sounds equal bilaterally. No wheezes, rales, or rhonchi. GASTROINTESTINAL: Abdomen soft, non-tender EXTREMITIES: No gross deformities. There is left hip tenderness. No shortening or rotation of the left leg. Light touch intact to foot and toes wiggles toes strong pedal pulse brisk cap refills. Nontender ankle and knee. Pain with attempts to flex at the left hip. NEURO: AOx4. SKIN: Warm and dry PSYCH: Not anxious, is cooperative Initial Vital Signs Initial Vital Signs: Vital Signs Temperature 99.1 F 10/14/22 13:46 Pulse Rate 85 10/14/22 13:46 Respiratory Rate 16 10/14/22 13:46 Blood Pressure 136/74 10/14/22 13:46 Pulse Oximetry 100 10/14/22 13:46 Oxygen Delivery Method Room Air 10/14/22 13:46 Course Orders Ordered: Discontinued Medications Acetaminophen (Acetaminophen 325 Mg Tablet) 650 mg PO NOW ONE Stop: 10/14/22 17:03 Last Admin: 10/14/22 17:09 Dose: 650 mg Documented By: NR Vital Signs Vital signs: Vital Signs - 8 hr 10/14/22 13:46 10/14/22 15:59 10/14/22 16:00 Temperature 99.1 F Pulse Rate 85 Respiratory Rate 16 Blood Pressure 136/74 133/85 128/78 Pulse Oximetry 100 Oxygen Delivery Method Room Air MDM - Fall Lab Data 10/14/22 15:00 10/14/22 15:00 Labs: Lab Results 10/14/22 10/14/22 10/14/22 Range/Units 15:00 15:00 15:49 WBC 6.2 (4.5-11.0) X10^3/uL RBC 3.59 L (4.0-5.2) X10^6/uL Hgb 11.4 L (12.0-16.0) g/dL Hct 33.5 L (36-46) % MCV 93.5 (80-100) fL MCH 31.7 (26-34) PG MCHC 33.9 (30-36) % RDW 12.9 (11.6-14.8) % Plt Count 183 (150-400) X10^3/uL Neut % (Auto) 80.6 H (50-75) % Lymph % (Auto) 12.5 L (25-40) % Delta % (Auto) 5.5 (3-14) % Eos % (Auto) 0.6 L (2-4) % Baso % (Auto) 0.8 (0-2) % Neut # (Auto) 5000 (5738-0603) /uL Lymph # (Auto) 800 L (1206-6966) /uL Delta # (Auto) 300 (0-900) /uL Eos # (Auto) 0 (0-450) /uL Baso # (Auto) 0 (0-100) /uL Sodium 135 L (137-145) mmol/L Potassium 3.9 (3.4-5.1) mmol/L Chloride 100 (98-107) mmol/L Carbon Dioxide 27 (22-32) mmol/L BUN 18 H (7-17) mg/dL Creatinine 0.72 (0.52-1.04) mg/dL Estimated GFR > 60 (>60) mL/min BUN/Creatinine Ratio 25.0 H (6-22) Glucose 90 (80-110) mg/dL Calcium 8.8 (8.4-10.2) mg/dL Total Bilirubin 0.4 (0.2-1.3) mg/dL AST 34 (14-36) IU/L ALT 20 (<35) IU/L Alkaline Phosphatase 78 (38-126) U/L Total Protein 7.5 (6.3-8.2) g/dL Albumin 4.4 (3.5-5.0) g/dL Globulin 3.1 (1.7-4.1) g/dL Albumin/Globulin Ratio 1.4 (1.0-2.8) Lipase 101 (23-300) U/L SARS-CoV-2 (PCR) Negative (Negative) Imaging Data Extremity x-ray #1: Radiologist's Impression: PROCEDURE:? XR HIP W PEL IF DONE LT 2V ? INDICATIONS:? fall/injury ? TECHNIQUE:? AP pelvis with lateral view(s) of the left hip(s).? ? COMPARISON:? None. ? FINDINGS:? ? Bones:? Mildly displaced subcapital left femoral neck fracture..? Pelvic ring appears intact.? No suspicious bony lesions.? Mild bilateral hip osteoarthritic degenerative changes.? ? Soft tissues:? The visualized bowel gas pattern is normal.? No suspicious soft tissue calcifications.? ? ? IMPRESSION:? Subcapital left femur fracture. ? Dictated by: Merle Garcia MD, PhD on 10/14/2022 at 14:22 ? ? Approved by: Merle Garcia MD, PhD on 10/14/2022 at 14:23 ? Extremity x-ray #2: Radiologist's Impression: PROCEDURE:? CT PEL WO CON ? INDICATIONS:? explore Left femur fx ? TECHNIQUE:? After the administration of oral contrast, 5 mm thick sections acquired from the iliac crests to the symphysis.? 5 mm coronal and sagittal reformats were then performed.? For radiation dose reduction, the following was used:? automated exposure control, adjustment of mA and/or kV according to patient size.? ? COMPARISON:? [facility], CR, XR HIP W PEL IF DONE LT 2V, 10/14/2022, 13:57. ? FINDINGS:? Image quality:? Excellent.? ? Peritoneum and bowel:? Bowel loops demonstrate normal wall thickness and caliber.? No free fluid or air.? Significant colonic stool is present without obstruction. ? Genitourinary:? Bladder wall thickness is normal.? ? Nodes and vessels:? No iliac, pelvic, or inguinal adenopathy by size criteria.? Iliac vessels demonstrate normal size.? ? Bones:? There is a mildly angulated subcapital left femoral fracture.? Remaining osseous structures are. ? Miscellaneous:? No inguinal hernias.? ? IMPRESSION:? ? Left subcapital femoral fracture with mild angulation. ? Prominent stool consistent with constipation.? No obstruction. ? ? Dictated by: Tere Krishnamurthy M.D. on 10/14/2022 at 15:25 ? ? Approved by: Tere Krishnamurthy M.D. on 10/14/2022 at 15:26 ? [facility] Narrative Medical decision making narrative: Patient here for left hip pain. Here with . NPO since 10:00 a.m.. Patient was walking on a trail when she hit a tree root, and fell on her left hip. She required assistance to walk back to her car. Prior history left knee surgery 3 years ago here with Dr. Aguilar. Denies any history of heart attack strokes or diabetes. Is not on any blood thinners. Pain controlled at this time After history and exam x-ray left hip CT pelvis CBC CMP Landeros catheter ordered [facility] CC: Left hip pain Complicating co-morbidities: None Data collected from: Patient and Medical records reviewed: No previous visits here for hip injury Differential considered: Includes but not limited to hip dislocation pelvis fracture hip fracture Exam documented above, pertinent findings include: Tender left hip Lab Test results independently reviewed as above. Pertinent findings: WBC 6.2 hemoglobin 11 sodium 135 potassium 3.9 GFR greater than 60 AST 34 Independently reviewed EKG as above normal EKG normal sinus rhythm rate 83 Imaging studies independently reviewed: X-ray left hip subcapital left femur fracture CT pelvis left subcapital femoral fracture with mild angulation Consultations: 1600 s/w dr mckeon, ortho at [facility], he will follow up patient in consult. Surgery tomorrow. 1620 s/w dr garza, hospitalist at [facility], he will admit patient Treatments: Re-evaluations: 3:30 p.m.. Reviewed results with patient and . They do understand will need surgery but at this time operating room at this facility is closed. Patient will need to be transferred. Discussion: Appropriate for transfer, our operating room is closed for unknown amount of time or days. Pain controlled at this time. Diagnosis: Acute left hip fracture Discharge Plan Departure Patient Disposition: [facility] Clinical Impression: Closed fracture of left hip Prescriptions: No Action vitamin D3-vitamin K2 125-90 mcg capsule PO Patient Comments: I've had multiple basal cell and squamous cell carcinomas and family history of melanoma; therefore I use sunscreen and avoid sun exposure. amitriptyline 10 MG tablet 20 mg PO HS Qty: 0 diazepam 2 MG tablet 4 mg PO HS Qty: 0 estradiol 0.01 % (0.1 mg/gram) cream 0.5 g vaginal 2XW Qty: 42.5 3RF Rx Instructions: 0.5gm inside and small amount outside twice a week levothyroxine 50 mcg tablet 50 mcg PO DAILY Qty: 90 4RF multivitamin tablet 1 tab PO DAILY calcium-magnesium 300-300 mg tablet 1 tab PO DAILY acetaminophen [Acetaminophen Pain Relief] 500 mg Tablet 1,000 mg PO Q6H PRN (Reason: Pain) Rx Instructions: Post op med VO-bggebgcbzya-ubahiu ox-zinc 500-750-1.5-25 jhx-qr-ma-mg Tablet,Ext Release Multiphase 1 tab PO DAILY Referrals: Zenaida Guzman MD [Primary Care Provider] -
[2022-10-14 15:30] LABS: Alanine Aminotransferase 20 IU/L (<35); Albumin 4.4 g/dL (3.5-5.0); Albumin Globulin Ratio 1.4 (1.0-2.8); Alkaline Phosphatase 78 U/L (38-126); Aspartate Aminotransferase 34 IU/L (14-36); Bilirubin Total 0.4 mg/dL (0.2-1.3); Blood Urea Nitrogen 18 mg/dL (7-17); Calcium 8.8 mg/dL (8.4-10.2); Carbon Dioxide 27 mmol/L (22-32); Chloride 100 mmol/L (98-107); Estimated Glomerular Filt Rate > 60 mL/min (>60); Globulin 3.1 g/dL (1.7-4.1); Glucose 90 mg/dL (80-110); HEMOLYSIS 28 (0-50); Lipase 101 U/L (23-300); Potassium 3.9 mmol/L (3.4-5.1); Sodium 135 mmol/L (137-145); Total Protein 7.5 g/dL (6.3-8.2)
[2022-10-14 16:29] LABS: COVID19 -Nasal RAPID Negative (Negative)
[2022-10-14] MEDS: ACETAMINOPHEN 325 MG TABLET 650 MG PO (17:09)
--- NOTE | 2022-10-14 19:43 | PC.NURSE ---
pt resting quietly on stretcher updated on plan of care, pillow placed under pt's knee to provide comfort, pt aao x 3 waiting transfer
--- NOTE | 2022-10-14 20:46 | PC.NURSE ---
attempted to call report wihout any answer
--- NOTE | 2022-10-14 20:47 | PC.NURSE ---
report given to EMS crew
== END 2022-10-14 20:56 | disposition short-term general hospital (02) ==
PROVIDERS: Emergency Provider Emergency Medicine; Family Provider Family Medicine; PCP Family Medicine
DX: S72.002A Fracture of unspecified part of neck of left femur, initial encounter for closed fracture (principal); R10.9 Unspecified abdominal pain; W18.30XA Fall on same level, unspecified, initial encounter; Z20.822 Contact with and (suspected) exposure to COVID-19
CPT/HCPCS: 36415; 72192; 73502; 80053; 83690; 85025; 87635; 93005; 93010; 99284; C9803

== ENCOUNTER → 2022-10-23 08:41 | Outpatient (CLI) | payer MEDICARE, OTHER, SELFPAY ==
[2020-08-17 16:15] VITALS: BMI 20.1
[2022-10-23 10:45] LABS: Cholesterol 187 mg/dL (140-199); Glucose 80 mg/dL (80-110); HDL Cholesterol 55 mg/dL (40-60); LDL Cholesterol Calculated 107 mg/dL (<100); Triglycerides 127 mg/dL (35-150)
[2022-10-23 11:10] LABS: TSH w/ Reflex to FT4 1.84 uIU/mL (0.47-4.68)
== END ==
PROVIDERS: Family Provider Family Medicine; PCP Family Medicine; Referring Provider Family Medicine; Visit Provider Family Medicine
DX: Z13.1 Encounter for screening for diabetes mellitus (principal); E03.9 Hypothyroidism, unspecified; Z13.220 Encounter for screening for lipoid disorders
CPT/HCPCS: 36415; 80061; 82947; 84443

== ENCOUNTER → 2023-03-13 13:46 | Outpatient (CLI) | payer MEDICARE, OTHER, SELFPAY ==
[2020-08-17 16:15] VITALS: BMI 20.1
--- NOTE | 2023-03-13 | DI.MRI.S_ITS ---
PROCEDURE: MR LUMBAR SPINE WO CON INDICATIONS: Spondylosis lumbar region TECHNIQUE: Noncontrast sagittal T1 spin echo and T2 fast echo, sagittal STIR, and T2 fast spin echo through the lumbar spine. In cases with scoliosis, additional coronal T2 fast spin echo may be performed. COMPARISON: [facility] Naylor, CR, XR LUMBAR SPINE 2 OR 3 VIEWS, 03/05/2023, 11:37. FINDINGS: Image quality: Excellent. Alignment and Curvature: There is normal bony alignment. Bone Marrow: The marrow has a heterogenous fatty is mint. No acute vertebral body compression fractures. Spinal Cord: Conus medullaris terminates at the L1 level. Visualized cord demonstrates normal signal and size. Paraspinous Soft Tissues: No paravertebral masses. T12-L1: The disc is desiccated No significant disc bulge. The foramina and central canal are patent. L1-L2: No significant disc bulge. The foramina and central canal are patent. L2-L3: Disc space narrowing. Edematous changes of the endplates on the left. Diffuse disc bulge and disc osteophytes. Ligamentum flavum hypertrophy and facet hypertrophy. Severe foraminal stenosis bilaterally. Severe central canal stenosis. L3-L4: Disc space narrowing. Diffuse disc bulge and disc osteophytes. Ligamentum flavum hypertrophy and facet hypertrophy. Severe bilateral foraminal stenosis. Severe central canal stenosis. L4-L5: Diffuse disc bulge and facet hypertrophy. Mild bilateral foraminal stenosis. The central canal is patent. L5-S1: No significant disc bulge. The foramina and central canal are patent. IMPRESSION: 1. Multilevel lumbar spondylosis causing foraminal and central canal stenosis as detailed above. 2. Central canal stenosis is severe at L2-3 and L3-4. Dictated by: Virgilio Bhagat M.D. on 03/13/2023 at 15:39 Approved by: Virgilio Bhagat M.D. on 03/17/2023 at 10:34
== END ==
PROVIDERS: Family Provider Family Medicine; PCP Family Medicine; Referring Provider Orthopaedic Surgery Orthopaedic Surgery of the Spine; Visit Provider Orthopaedic Surgery Orthopaedic Surgery of the Spine
DX: M47.816 Spondylosis without myelopathy or radiculopathy, lumbar region (principal); M48.061 Spinal stenosis, lumbar region without neurogenic claudication
CPT/HCPCS: 72148

== ENCOUNTER → 2023-09-29 08:46 | Outpatient (CLI) | payer MEDICARE, OTHER, SELFPAY ==
[2020-08-17 16:15] VITALS: BMI 20.1
[2023-09-29 10:06] LABS: Add Manual Diff / Slide Review NO; Basophils Absolute Auto 0 /uL (0-100); Basophils Percent Auto 1.2 % (0-2); Eosinophils Absolute Auto 100 /uL (0-450); Eosinophils Percent Auto 2.9 % (2-4); Hematocrit 32.7 % (36-46); Lymphocytes Absolute Auto 800 /uL (1100-4500); Lymphocytes Percent Auto 28.6 % (25-40); Mean Corpuscular HGB Conc 33.5 % (30-36); Mean Corpuscular Hemoglobin 31.2 PG (26-34); Monocytes Absolute Auto 200 /uL (0-900); Monocytes Percent Auto 8.9 % (3-14); Neutrophils Absolute Auto 1600 /uL (1500-7000); Neutrophils Percent Auto 58.4 % (50-75); Platelet Count 204 X10^3/uL (150-400); Red Blood Cell Count 3.51 X10^6/uL (4.0-5.2); Red Cell Distribution Width 13.1 % (11.6-14.8); White Blood Cell Count 2.8 X10^3/uL (4.5-11.0)
[2023-09-29 10:48] LABS: Cortisol AM (Before 10AM) 15.7 ug/dL (4.46-22.7)
[2023-09-29 10:52] LABS: Ferritin 137 ng/mL (11-264)
== END ==
PROVIDERS: Family Provider Family Medicine; PCP Family Medicine; Referring Provider Internal Medicine Gastroenterology; Visit Provider Internal Medicine Gastroenterology
DX: R11.0 Nausea (principal); R63.4 Abnormal weight loss
CPT/HCPCS: 36415; 82533; 82728; 84443; 85025

== ENCOUNTER → 2023-10-16 | Outpatient (CLI) | payer MEDICARE, OTHER, SELFPAY ==
[2020-08-17 16:15] VITALS: BMI 20.1
--- NOTE | 2023-10-16 14:14 | DI.RAD.S_ITS ---
Bone Density Report Name: ALOK LORD Age: 78 Sex: Female Ethnicity: White Date of : 1945 Indication: postmenopausal; screening for osteoporosis; prior fracture; Referring Provider: BERE BECKETT Study: Bone densitometry was performed. Exam Date: October 16, 2023 Accession number: [id number] Bone Density: Region BMD T-score Z-score Classification AP Spine(L1, L2, L3) 1.121 0.9 3.4 Normal Femoral Neck (Right) 0.569 -2.5 -0.3 Osteoporosis Total Hip (Right) 0.826 -1.0 0.9 Normal Total Forearm (Left) 0.465 -2.1 0.5 Osteopenia 1/3 Forearm (Left) 0.608 -1.4 1.3 Osteopenia UD Forearm (Left) 0.334 -1.9 0.1 Osteopenia World Health Organization criteria for BMD impression classify patients as: Normal (T-score at or above -1.0), Osteopenia (T-score between -1.0 and -2.5), or Osteoporosis (T-score at or below -2.5). 10-year Fracture Risk: FRAX not reported because: Some T-score for Spine Total or Hip Total or Femoral Neck at or below -2.5 Prior hip or vertebral fracture Previous Exams: -- Region Exam Age BMD T-score BMD Change BMD Change Date g/cm2 vs Baseline vs Previous -- AP Spine (L1-L3) 10/16/2023 78 1.121 0.9 -0.193 (-14.7%)# -0.193 (-14.7%)# 11/24/2017 72 1.314 2.7 Total Hip(Right) 10/16/2023 78 0.826 -1.0 0.008 (1.0%)# 0.008 (1.0%)# 11/24/2017 72 0.818 -1.0 -- *Denotes significance at 95% confidence level, LSC for AP Spine = 0.022 g/cm2, LSC for Total Hip = 0.027 g/cm2 # Denotes dissimilar scan types or analysis methods Impression: The patient has established osteoporosis, based on the Right Femoral Neck T-score and the existence of a prior fracture. The patient has risk factors, including: previous fracture. No significant bone loss was observed. Discussion: HIGH RISK OF FRACTURE. BONE DENSITY IS UNDESIRABLY LOW AT ONE OR MORE SKELETAL SITES, CONSISTENT WITH POSTMENOPAUSAL OSTEOPOROSIS. This patient's lowest T-score, in a patient who has previously fractured, meets the World Health Organization's (WHO) criteria for severe osteoporosis. In untreated patients, the risk of osteoporotic fracture increases approximately two-fold for each 1.0 SD decrease in T-score. Low bone density is not the only risk factor for fracture; also consider factors such as patient's age, frailty or poor health, risk of falling, risk of injury, previous osteoporotic fracture, family history of osteoporosis, cigarette smoking, low body weight, etc. Not everyone with low bone mineral density has osteoporosis; osteomalacia and other metabolic bone disorders should also be considered. Patients who have osteoporosis should be evaluated for specific diseases and conditions (secondary causes) that may cause or contribute to bone loss. The [place] Association of Clinical Endocrinologists (AACE) and National Osteoporosis Foundation (NOF) recommend pharmacologic intervention for all postmenopausal women with a previous hip or vertebral fracture and a T-score in this range. The patient should follow a healthful lifestyle (good nutrition with adequate calcium and vitamin D, and appropriate weight-bearing exercise). Follow-Up: Consider a repeat BMD and Vertebral Fracture Assessment (VFA) exam in 2 years or sooner if medically necessary, to reassess this patient's status. Reported by: FILIBERTO LEA M.D. on 10/16/2023 2:43:00 PM.
== END ==
PROVIDERS: Family Provider Family Medicine; PCP Family Medicine; Referring Provider Physical Medicine & Rehabilitation; Visit Provider Physical Medicine & Rehabilitation
DX: M81.0 Age-related osteoporosis without current pathological fracture (principal)
CPT/HCPCS: 77080; 77081

== ENCOUNTER → 2023-11-16 15:38 | Outpatient (CLI) | payer MEDICARE, OTHER, SELFPAY ==
[2020-08-17 16:15] VITALS: BMI 20.1
[2023-11-16 16:43] LABS: Add Manual Diff / Slide Review NO; Basophils Absolute Auto 100 /uL (0-100); Basophils Percent Auto 1.1 % (0-2); Eosinophils Absolute Auto 100 /uL (0-450); Eosinophils Percent Auto 1.7 % (2-4); Hematocrit 32.3 % (36-46); Hemoglobin 10.8 g/dL (12.0-16.0); Lymphocytes Absolute Auto 1300 /uL (1100-4500); Lymphocytes Percent Auto 27.3 % (25-40); Mean Corpuscular HGB Conc 33.3 % (30-36); Mean Corpuscular Hemoglobin 31.5 PG (26-34); Mean Corpuscular Volume 94.7 fL (80-100); Monocytes Absolute Auto 500 /uL (0-900); Monocytes Percent Auto 10.2 % (3-14); Neutrophils Absolute Auto 2800 /uL (1500-7000); Neutrophils Percent Auto 59.7 % (50-75); Platelet Count 183 X10^3/uL (150-400); Red Blood Cell Count 3.41 X10^6/uL (4.0-5.2); Red Cell Distribution Width 13.1 % (11.6-14.8); White Blood Cell Count 4.7 X10^3/uL (4.5-11.0)
[2023-11-16 17:04] LABS: HEMOLYSIS < 15 (0-50); Iron 65 ug/dL (37-170)
[2023-11-16 17:07] LABS: Alanine Aminotransferase 22 IU/L (<35); Albumin 4.4 g/dL (3.5-5.0); Albumin Globulin Ratio 1.6 (1.0-2.8); Alkaline Phosphatase 69 U/L (38-126); Aspartate Aminotransferase 30 IU/L (14-36); BUN Creatinine Ratio 17.3 (6-22); Bilirubin Total 0.3 mg/dL (0.2-1.3); Blood Urea Nitrogen 17 mg/dL (7-17); Calcium 9.5 mg/dL (8.4-10.2); Carbon Dioxide 30 mmol/L (22-32); Chloride 107 mmol/L (98-107); Estimated Glomerular Filt Rate 59 mL/min (>60); Globulin 2.8 g/dL (1.7-4.1); Glucose 98 mg/dL (80-110); HEMOLYSIS < 15 (0-50); Sodium 139 mmol/L (137-145); Total Protein 7.2 g/dL (6.3-8.2)
[2023-11-16 17:16] LABS: Percent Iron Saturation 25 % (15-50); Total Iron Binding Capacity 255 ug/dL (265-497); Transferrin 209 mg/dL (206-381)
[2023-11-16 17:23] LABS: Vitamin D 25 Hydroxy (D3) 69.9 ng/mL (30.0-100.0)
[2023-11-16 17:43] LABS: Ferritin 117 ng/mL (11-264)
[2023-11-16 18:15] LABS: Folate 6.6 ng/mL (2.76-20.0); Vitamin B12 254 pg/mL (239-931)
== END ==
PROVIDERS: Family Provider Family Medicine; PCP Family Medicine; Referring Provider Family Medicine; Visit Provider Family Medicine
DX: D64.9 Anemia, unspecified (principal); E55.9 Vitamin D deficiency, unspecified; M81.0 Age-related osteoporosis without current pathological fracture
CPT/HCPCS: 36415; 80053; 82306; 82607; 82728; 82746; 83540; 83550; 85025

== ENCOUNTER → 2024-04-11 17:30 | Outpatient (CLI) | payer MEDICARE, OTHER, SELFPAY ==
[2020-08-17 16:15] VITALS: BMI 20.1
[2024-04-11 17:54] LABS: Appearance Urine UA CLEAR; Bilirubin Urine UA NEGATIVE (NEGATIVE); Color Urine UA YELLOW; Glucose Urine UA NEGATIVE (Negative); Ketones Urine UA NEGATIVE (NEGATIVE); Leukocyte Esterase Urine UA NEGATIVE (NEGATIVE); Nitrite Urine UA NEGATIVE (Negative); Occult Blood Urine UA TRACE-INTACT (Negative); Protein Urine UA NEGATIVE (Negative); Specific Gravity Urine UA <=1.005 (1.000-1.035); Urobilinogen Urine UA 0.2 E.U./dL (0.2)
[2024-04-11 17:57] LABS: pH Urine UA 5.5 (4.5-8.0)
[2024-04-11 18:00] LABS: Bacteria Urine Occasional (0-1); Culture Indicated Urine Cult Not Indicated; RBC Urine 0-1/HPF (0-5/HPF); Squamous Epithelial Cell Urine 0-1 /HPF (0-5/HPF); Urine Volume 10mL (spun); WBC Urine 0-1/HPF (0-5/HPF)
== END ==
LOC: LAB 17:31
PROVIDERS: Family Provider Family Medicine; PCP Family Medicine; Referring Provider Obstetrics & Gynecology; Visit Provider Obstetrics & Gynecology
DX: R10.2 Pelvic and perineal pain (principal)
CPT/HCPCS: 81001

== ENCOUNTER → 2024-04-12 09:53 | Outpatient (CLI) | payer MEDICARE, OTHER, SELFPAY ==
[2020-08-17 16:15] VITALS: BMI 20.1
== END ==
PROVIDERS: Family Provider Family Medicine; PCP Family Medicine; Visit Provider Obstetrics & Gynecology
DX: R10.2 Pelvic and perineal pain (principal)
CPT/HCPCS: 87086

== ENCOUNTER → 2024-05-03 14:05 | Outpatient (CLI) | payer MEDICARE, OTHER, SELFPAY ==
[2020-08-17 16:15] VITALS: BMI 20.1
[2024-05-03 14:54] LABS: Appearance Urine UA CLEAR; Bilirubin Urine UA NEGATIVE (NEGATIVE); Color Urine UA YELLOW; Glucose Urine UA NEGATIVE (Negative); Ketones Urine UA NEGATIVE (NEGATIVE); Leukocyte Esterase Urine UA NEGATIVE (NEGATIVE); Nitrite Urine UA NEGATIVE (Negative); Occult Blood Urine UA NEGATIVE (Negative); Protein Urine UA NEGATIVE (Negative); Specific Gravity Urine UA <=1.005 (1.000-1.035); Urobilinogen Urine UA 0.2 E.U./dL (0.2)
[2024-05-03 14:59] LABS: pH Urine UA 6.5 (4.5-8.0)
[2024-05-03 15:07] LABS: Bacteria Urine Occasional (0-1); Culture Indicated Urine Cult Not Indicated; RBC Urine 0-1/HPF (0-5/HPF); Squamous Epithelial Cell Urine 0-1 /HPF (0-5/HPF); Urine Volume 10mL (spun); WBC Urine 0-1/HPF (0-5/HPF)
== END ==
PROVIDERS: Family Provider Family Medicine; PCP Family Medicine; Referring Provider Obstetrics & Gynecology; Visit Provider Obstetrics & Gynecology
DX: R39.89 Other symptoms and signs involving the genitourinary system (principal)
CPT/HCPCS: 81001

== ENCOUNTER → 2024-11-17 15:40 | Outpatient (CLI) | payer MEDICARE, OTHER, SELFPAY ==
[2020-08-17 16:15] VITALS: BMI 20.1
[2024-11-17 17:22] LABS: Add Manual Diff / Slide Review NO; Basophils Absolute Auto 0 /uL (0-100); Basophils Percent Auto 0.2 % (0-2); Eosinophils Absolute Auto 100 /uL (0-450); Eosinophils Percent Auto 4.6 % (2-4); Hematocrit 35.1 % (36-46); Hemoglobin 11.9 g/dL (12.0-16.0); Lymphocytes Absolute Auto 300 /uL (1100-4500); Lymphocytes Percent Auto 11.2 % (25-40); Mean Corpuscular HGB Conc 33.8 % (30-36); Mean Corpuscular Volume 94.8 fL (80-100); Monocytes Absolute Auto 200 /uL (0-900); Monocytes Percent Auto 6.8 % (3-14); Neutrophils Absolute Auto 2100 /uL (1500-7000); Neutrophils Percent Auto 77.2 % (50-75); Platelet Count 138 X10^3/uL (150-400); Red Blood Cell Count 3.71 X10^6/uL (4.0-5.2); Red Cell Distribution Width 12.4 % (11.6-14.8); White Blood Cell Count 2.7 X10^3/uL (4.5-11.0)
[2024-11-17 17:35] LABS: Alanine Aminotransferase 23 IU/L (<35); Albumin 4.4 g/dL (3.5-5.0); Albumin Globulin Ratio 1.6 (1.0-2.8); Alkaline Phosphatase 95 U/L (38-126); Aspartate Aminotransferase 42 IU/L (14-36); BUN Creatinine Ratio 16.1 (6-22); Bilirubin Total 0.2 mg/dL (0.2-1.3); Blood Urea Nitrogen 20 mg/dL (7-17); Calcium 9.1 mg/dL (8.4-10.2); Carbon Dioxide 24 mmol/L (22-32); Chloride 98 mmol/L (98-107); Estimated Glomerular Filt Rate 45 mL/min (>60); Globulin 2.7 g/dL (1.7-4.1); Glucose 119 mg/dL (80-110); HEMOLYSIS < 15 (0-50); Potassium 4.6 mmol/L (3.4-5.1); Sodium 133 mmol/L (137-145); Total Protein 7.1 g/dL (6.3-8.2)
== END ==
PROVIDERS: Family Provider Family Medicine; PCP Family Medicine; Referring Provider Physician Assistant; Visit Provider Physician Assistant
DX: L08.9 Local infection of the skin and subcutaneous tissue, unspecified (principal)
CPT/HCPCS: 36415; 80053; 85025

== ENCOUNTER → 2025-01-02 15:51 | Outpatient (CLI) | payer MEDICARE, OTHER, SELFPAY ==
[2020-08-17 16:15] VITALS: BMI 20.1
[2025-01-02 16:36] LABS: BUN Creatinine Ratio 20.2 (6-22); Blood Urea Nitrogen 19 mg/dL (7-17); Calcium 9.2 mg/dL (8.4-10.2); Carbon Dioxide 29 mmol/L (22-32); Chloride 100 mmol/L (98-107); Estimated Glomerular Filt Rate > 60 mL/min (>60); Glucose 116 mg/dL (70-99); HEMOLYSIS < 15 (0-50); Potassium 4.3 mmol/L (3.4-5.1); Sodium 135 mmol/L (137-145)
[2025-01-02 17:06] LABS: Thyroid Stimulating Hormone 0.904 uIU/mL (0.47-4.68)
== END ==
PROVIDERS: Family Provider Family Medicine; PCP Family Medicine; Referring Provider Family Medicine; Visit Provider Family Medicine
DX: E03.9 Hypothyroidism, unspecified (principal); R74.8 Abnormal levels of other serum enzymes
CPT/HCPCS: 36415; 80048; 84443

== ENCOUNTER 2025-02-16 11:08 | Emergency (ER) | payer MEDICARE, OTHER, SELFPAY ==
[2020-08-17 16:15] VITALS: BMI 20.1
[2025-02-16] VITALS (18 sets, daily range): BP systolic 116–149; BP diastolic 59–79; PULSE 69–85; RESP 98; TEMP 37.2; O2SAT 79–100; BMI 22.4
--- NOTE | 2025-02-16 11:27 | EKG_ITS ---
[address] [address] Test Date: 2025-02-16 Pat Name: Marlen Blanc Department: [facility] Room: Gender: Female [employer] Technician: susanne : 1945 Requested By: Order Number: [id number] Reading MD: Kushal Walter Measurements Intervals [place] Rate: 92 P: 77 AL: 164 QRS: 81 QRSD: 70 T: 66 QT: 346 QTc: 427 Interpretive Statements Sinus rhythm with marked sinus arrhythmia Electronically Signed On 02-16-2025 18:08:36 PDT by Kushal Walter
[2025-02-16] MEDS: SODIUM CHLORIDE 0.9% 1,000 ML 1000 ML IV (12:44)
--- NOTE | 2025-02-16 12:44 | ED.HA ---
HPI - Headache General Chief Complaint: Headache Stated Complaint: Headache, stabbing stomach pain, blurry vision Time Seen by Provider: 02/16/25 12:15 History of Present Illness HPI Narrative: Patient here for results symptoms but she states 5 days ago had sudden onset acute frontal bilateral headache. No syncope. No thunderclap headache. These symptoms are waxing and waning. Sometimes she is symptoms free. Patient yesterday had less than 2 minute episode of blurry vision. No loss of vision. She says it was bilateral. Patient denies any history of migraine headaches or strokes. Patient did have last weekend some abdominal pain but that resolved. No abdominal pain now. Fast exam is negative. Related Data Home Medications ?Medication ?Instructions ?Recorded ?Confirmed multivitamin 1 tab PO DAILY 09/20/18 02/27/25 acetaminophen 500 mg tablet 1,000 mg PO Q6H PRN Pain 03/24/19 02/27/25 (Acetaminophen Pain Relief) vitamin D3 125 mcg (5,000 cap PO no sun exposure 10/13/22 02/27/25 unit)-vitamin K2 90 mcg capsule calcium 500 mg tab PO bone health 10/28/23 02/27/25 (carb,gluconate)-magnesium 250 mg (gluc,oxide) tablet (Calcium Magnesium) amitriptyline 25 mg tablet mg PO 01/02/25 02/27/25 gabapentin 300 mg capsule 300 mg PO ONCE PM PRN 01/02/25 02/27/25 lemborexant 5 mg tablet (Dayvigo) mg PO 01/02/25 02/27/25 Previous Rx's ?Medication ?Instructions ?Recorded estradiol 0.01% (0.1 mg/gram) 0.5 g vaginal 2XW #42.5 grams 03/16/24 vaginal cream levothyroxine 50 mcg tablet 50 mcg PO DAILY #90 tabs 01/03/25 oxybutynin chloride 2.5 mg tablet 2.5 mg PO DAILY #30 tabs 02/27/25 Allergies Allergy/AdvReac Type Severity Reaction Status Date / Time Sulfa (Sulfonamide Allergy Verified 02/27/25 16:14 Antibiotics) Review of Systems Review of Systems Narrative: GENERAL: Negative chills, fatigue, malaise, fever, sweats. HEENT: Negative sinus pain, ear pain, sore throat RESPIRATORY: Negative dyspnea, cough CARDIOVASCULAR: Negative chest pain, palpitations GASTROINTESTINAL: Negative vomiting, nausea, positive abdominal pain : Negative dysuria, frequency, hematuria MUSCULOSKELETAL: Negative muscle or bony pain SKIN: Negative rash, skin lesions NEUROLOGIC: Negative weakness, numbness, positive headache positive dizziness ROS Unobtainable: All systems reviewed & are unremarkable except as noted in HPI and below Patient History Medical History Anxiety BCC (basal cell carcinoma) GI bleed (~2011) History of GI bleed Hypothyroidism IBS (irritable bowel syndrome) Insomnia Osteoarthritis SCC (squamous cell carcinoma) Thin skin Surgical History Hx of arthroscopy of right knee Hx of eye surgery Status post arthroscopy Status post tubal ligation Family History Father Hypertension High cholesterol Grandmother Alcoholism Mother Heart disease Hypertension High cholesterol Alcoholism Stroke Sister Age: 75 Hypertension Alcoholism Social History marital status: number of children: 2 household members: spouse lives independently: Yes caregiver/support person: No housing: house occupational status: previously employed second hand exposure: No alcohol intake: current substance use type: does not use Smoking Status: Never smoker alcohol intake frequency: a few times a month Exam Narrative Exam Narrative: GENERAL: in no distress, not toxic not dyspneic HEAD: Normocephalic. EYES: Pupils equal round ENT: Mucous membranes moist. NECK: Trachea midline. Full active range of motion without any neck pain. No meningeal signs. CARDIOVASCULAR: Regular rate and rhythm RESPIRATORY: Clear to auscultation. Breath sounds equal bilaterally. No wheezes, rales, or rhonchi. GASTROINTESTINAL: Abdomen soft, non-tender EXTREMITIES: No gross deformities. BACK: No flank tenderness. NEURO: AOx4. Clear speech no facial droop fast exam is negative light touch intact bilateral face hands and legs strong equal research intern. SKIN: Warm and dry PSYCH: Not anxious, is cooperative Initial Vital Signs Initial Vital Signs: Vital Signs Temperature 98.9 F 02/16/25 11:13 Pulse Rate 85 02/16/25 11:13 Respiratory Rate 98 H 02/16/25 11:13 Blood Pressure 128/70 02/16/25 11:13 Pulse Oximetry 99 02/16/25 11:13 Oxygen Delivery Method Room Air 02/16/25 11:13 Course Orders Ordered: Discontinued Medications Sodium Chloride (Normal Saline 0.9%) 1,000 mls @ 1,000 mls/hr IV BOLUS ONE Stop: 02/16/25 13:35 Last Infusion: 02/16/25 15:02 Dose: Infused Documented By: Admin: 02/16/25 12:44 Dose: 1,000 mls/hr Documented By: JAIDA Vital Signs Vital signs: Vital Signs - 8 hr 02/16/25 11:13 02/16/25 12:07 02/16/25 12:08 Temperature 98.9 F Pulse Rate 85 78 Respiratory Rate 98 H Blood Pressure 128/70 149/73 H Pulse Oximetry 99 99 Oxygen Delivery Method Room Air 02/16/25 12:08 02/16/25 12:30 02/16/25 12:30 Temperature Pulse Rate 80 83 Respiratory Rate Blood Pressure 133/77 Pulse Oximetry 99 99 Oxygen Delivery Method 02/16/25 13:00 02/16/25 13:00 02/16/25 13:41 Temperature Pulse Rate 75 84 Respiratory Rate Blood Pressure 121/68 Pulse Oximetry 99 Oxygen Delivery Method 02/16/25 13:42 02/16/25 13:42 02/16/25 14:00 Temperature Pulse Rate 76 Respiratory Rate Blood Pressure 143/70 H 125/72 Pulse Oximetry Oxygen Delivery Method 02/16/25 14:00 02/16/25 14:30 02/16/25 14:30 Temperature Pulse Rate 70 71 Respiratory Rate Blood Pressure 119/60 Pulse Oximetry 99 100 Oxygen Delivery Method 02/16/25 15:00 02/16/25 15:00 02/16/25 15:30 Temperature Pulse Rate 74 Respiratory Rate Blood Pressure 126/59 L 116/59 L Pulse Oximetry 99 Oxygen Delivery Method 02/16/25 15:30 02/16/25 15:48 02/16/25 15:48 Temperature Pulse Rate 77 70 Respiratory Rate Blood Pressure 144/79 H Pulse Oximetry 98 Oxygen Delivery Method 02/16/25 16:00 02/16/25 16:00 02/16/25 16:30 Temperature Pulse Rate 75 69 Respiratory Rate Blood Pressure 148/77 H Pulse Oximetry 98 99 Oxygen Delivery Method Room Air 02/16/25 16:30 02/16/25 17:00 02/16/25 17:00 Temperature Pulse Rate 80 Respiratory Rate Blood Pressure 130/68 122/70 Pulse Oximetry Oxygen Delivery Method 02/16/25 17:30 02/16/25 17:30 02/16/25 18:00 Temperature Pulse Rate 70 Respiratory Rate Blood Pressure 123/65 122/62 Pulse Oximetry 100 Oxygen Delivery Method 02/16/25 18:00 02/16/25 18:35 Temperature Pulse Rate 72 83 Respiratory Rate Blood Pressure Pulse Oximetry 100 79 L Oxygen Delivery Method MDM - Headache Lab Data 02/16/25 12:04 02/16/25 12:04 Labs: Lab Results 02/16/25 02/16/25 Range/Units 12:04 13:25 WBC 4.2 L (4.5-11.0) X10^3/uL RBC 3.41 L (4.0-5.2) X10^6/uL Hgb 11.0 L (12.0-16.0) g/dL Hct 32.6 L (36-46) % MCV 95.6 (80-100) fL MCH 32.4 (26-34) PG MCHC 33.9 (30-36) % RDW 13.0 (11.6-14.8) % Plt Count 186 (150-400) X10^3/uL Neut % (Auto) 60.9 (50-75) % Lymph % (Auto) 26.1 (25-40) % [place] % (Auto) 9.9 (3-14) % Eos % (Auto) 1.9 L (2-4) % Baso % (Auto) 1.2 (0-2) % Neut # (Auto) 2500 (2032-8124) /uL Lymph # (Auto) 1100 (4079-7766) /uL [place] # (Auto) 400 (0-900) /uL Eos # (Auto) 100 (0-450) /uL Baso # (Auto) 0 (0-100) /uL Sodium 136 L (137-145) mmol/L Potassium 4.7 (3.4-5.1) mmol/L Chloride 104 (98-107) mmol/L Carbon Dioxide 26 (22-32) mmol/L BUN 19 H (7-17) mg/dL Creatinine 0.78 (0.52-1.04) mg/dL Estimated GFR > 60 (>60) mL/min BUN/Creatinine Ratio 24.4 H (6-22) Glucose 85 (70-99) mg/dL Calcium 9.0 (8.4-10.2) mg/dL Total Bilirubin 0.6 (0.2-1.3) mg/dL AST 70 H (14-36) IU/L ALT 18 (<35) IU/L Alkaline Phosphatase 70 (38-126) U/L Total Protein 7.5 (6.3-8.2) g/dL Albumin 4.4 (3.5-5.0) g/dL Globulin 3.1 (1.7-4.1) g/dL Albumin/Globulin Ratio 1.4 (1.0-2.8) Urine Color Yellow Urine Appearance Sl cloudy Urine pH 7.0 (4.5-8.0) Ur Specific [place] <=1.005 (1.000-1.035) Urine Protein Negative (Negative) Urine Glucose (UA) Negative (Negative) g/dL Urine Ketones Negative (NEGATIVE) Urine Occult Blood Negative (Negative) Urine Nitrate Negative (Negative) Urine Bilirubin Negative (NEGATIVE) Urine Urobilinogen 0.2 (0.2) E.U./dL Ur Leukocyte Esterase Negative (NEGATIVE) Urine RBC None seen (0-5/HPF) Urine WBC None seen (0-5/HPF) Ur Squamous Epith Cells 1-5 /hpf (0-5/HPF) Urine Bacteria None seen (None) Ur Culture Indicated? Cult not indicated Vol Urine Centrifuged 10ml (spun) Imaging Data CT scan - head: Radiologist's Impression: [place] [address] CT Scan Report Signed Patient: Marlen Blanc MR#: [id number] : 1945 Acct:[id number] Age/Sex: 79 / F Date of Service: 02/16/25 Loc: ED Accession Number: [id number] Procedure: CT head/brain wo con Ordering Provider: Yunior Rider MD PROCEDURE: CT HEAD/BRAIN WO CON INDICATIONS: Headache dizzy blurry vision TECHNIQUE: Noncontrast 4.5 mm thick angled axial sections acquired from the foramen magnum to the vertex, with coronal and sagittal reformats. For radiation dose reduction, the following was used: automated exposure control, adjustment of mA and/or kV according to patient size. COMPARISON: [facility], CT, CT ANGIO HEAD AND NECK, 02/16/2025, 13:06. FINDINGS: Image quality: Diagnostic. CSF spaces: Basal cisterns are patent. No extra-axial fluid collections. The ventricles are symmetric in size and shape. Brain: No intracranial bleeds or mass effect. There is cerebral volume loss, with resultant ventricular and sulcal prominence. There are periventricular and deep white matter chronic small vessel ischemic changes. There is intracranial internal carotid artery atherosclerosis. Skull and face: Calvarium and visualized facial bones appear intact, without suspicious lesions. Sinuses: Visualized sinuses and mastoids are clear. IMPRESSION: No imaging explanation is found for this patient's presenting symptoms. No acute intracranial pathology. If there is strong clinical suspicion for an acute stroke, please consider a brain MRI for further evaluation, as it is more sensitive (assuming that there is no contraindication to MRI). Dictated by: Dio Lugo M.D. on 02/16/2025 at 13:24 Approved by: Dio Lugo M.D. on 02/16/2025 at 13:25 CTA - brain/neck: Radiologist's Impression: [place] [address] CT Scan Report Signed Patient: Marlen Blanc MR#: [id number] : 1945 Acct:[id number] Age/Sex: 79 / F Date of Service: 02/16/25 Loc: ED Accession Number: [id number] Procedure: CT angio head and neck Ordering Provider: Yunior Rider MD PROCEDURE: CT ANGIO HEAD AND NECK INDICATIONS: Headache dizzy TECHNIQUE: After the administration of intravenous contrast, 1 mm thick sections acquired from the aortic arch through the [place] of [place]. 3-dimensional qoaojvh-ednknogrm-jobuazidsn (MIP) and/or volume rendering reformats were acquired of the central intracranial vasculature and neck separately. For radiation dose reduction, the following was used: automated exposure control, adjustment of mA and/or kV according to patient size. COMPARISON: [facility], CT, CT HEAD/BRAIN WO CON, 02/16/2025, 13:06. FINDINGS: Image quality: Limited by bolus timing, with venous contamination. Cerebral CT Angiogram: Internal carotid arteries: No acute findings. Intracranial ICA are patent with no significant stenosis. No occlusion. No aneurysm. Anterior cerebral arteries: Unremarkable. No significant stenosis. No occlusion. No aneurysm. Middle cerebral arteries: Unremarkable. No significant stenosis. No occlusion. No aneurysm. Posterior cerebral arteries: Unremarkable. No significant stenosis. No occlusion. No aneurysm. Basilar artery: Unremarkable. No significant stenosis. No occlusion. No aneurysm. Vertebral arteries: Unremarkable as visualized. Dural venous sinuses: Unremarkable given phase of enhancement. Other: Arterial phase appearance of the brain parenchyma is unremarkable. Neck CT Angiogram: Internal carotid arteries: Unremarkable. No significant stenosis. No dissection or occlusion. Common carotid arteries: Unremarkable. No significant stenosis. No dissection or occlusion. External carotid arteries: Unremarkable. No occlusion. Vertebral arteries: Unremarkable. No significant stenosis. No dissection or occlusion. Aortic Arch and Mediastinum: Partially visualized aortic arch unremarkable without evidence of aneurysm. Origins of the great vessels unremarkable. Other: Arterial phase soft tissues of the neck and chest are unremarkable. There is moderate cervical spine degenerative change. IMPRESSION: No significant intracranial arterial abnormality is seen. No significant abnormality is seen within the arteries of the neck. Any quantitative measurements of stenosis were performed using NASCET criteria. Dictated by: Dio Lugo M.D. on 02/16/2025 at 13:25 Approved by: Dio Lugo M.D. on 02/16/2025 at 13:27 MRI brain: Radiologist's Impression: [place] [address] Magnetic Resonance Report Signed Patient: Marlen Blanc MR#: [id number] : 1945 Acct:[id number] Age/Sex: 79 / F Date of Service: 02/16/25 Loc: ED Accession Number: [id number] Procedure: MR head/brain wo con Ordering Provider: Yunior Rider MD PROCEDURE: MR HEAD/BRAIN WO CON INDICATIONS: Headache blurry vision TECHNIQUE: Non-contrast axial T1 spin echo, axial T2 fast spin echo, sagittal and axial FLAIR, coronal T2 fast spin echo, axial gradient echo, axial diffusion and ADC through the brain. COMPARISON: [facility], CT, CT HEAD/BRAIN WO CON, 02/16/2025, 13:06. [facility], CT, CT ANGIO HEAD AND NECK, 02/16/2025, 13:06. FINDINGS: Image quality: Excellent. CSF spaces: Ventricles appear symmetric in size and shape. Basal cisterns are patent. No extra-axial fluid collections. Brain: No acute intracranial hemorrhage or mass effect. There is cerebral volume loss for age. There are mild periventricular and deep white matter chronic small vessel ischemic changes. Brainstem appears normal. Diffusion-weighted images show no acute infarct. No chronic ischemic insults. Normal intravascular flow voids are present. Skull and face: Calvarial bone marrow is normal in signal. Orbits are normal. Sinuses: Mild mucosal thickening in the bilateral ethmoid air cells. The remaining visualized paranasal sinuses and the mastoid air cells are clear. IMPRESSION: 1. No acute intracranial hemorrhage or recent infarct. 2. Mild chronic microvascular ischemic changes and generalized parenchymal volume loss. Approved by: Dann Ludwig M.D. on 02/16/2025 at 18:50 [facility] Narrative Medical decision making narrative: Patient here for elevated potassium. Blood work done yesterday by primary care, physician medical billing assistantlynn. Patient states she has history of chronic kidney disease elevated creatinine and has been 3 months since the last blood draw. It was done yesterday routinely for comparison. It was noted to be elevated potassium it was instructed to come here. Patient denies any source for her kidney problems. No diabetes. Not hypertension induced. Patient denies any urinary complaints. Patient has had off on dizziness and lightheadedness and feeling fatigued. But no chest pain or shortness of breath. After history and exam, CBC CMP CT head CT angiogram head and neck EKG normal saline, patient is symptom free at this time. No other medications indicated at this time. [facility] Medical records reviewed: No recent visit for this complaint Differential considered: Includes but not limited to migraine headache brain aneurysm neoplasm subarachnoid bleed Lab Test results independently reviewed as above. Pertinent findings: WBC 4.2 hemoglobin 11 hematocrit 32.6 sodium 136 potassium 4.7 BUN 19 creatinine 0.78 AST 70 ALT 18 urinalysis negative ketones negative nitrate negative leukocyte esterase Independently reviewed EKG sinus rhythm rate [address] elevation or depression Imaging studies independently reviewed: CT head CT angiogram head and neck no acute finding, MRI brain no acute finding Consultations: 4:25 p.m.. Spoke with primary on-call, Dr. Clinton Nix, on-call for Dr. Guzman, agrees, patient is asymptomatic and MRI here can be done and follow up with Dr. Guzman next week. Re-evaluations: 4:00 p.m.. Patient remains asymptomatic. Primary care was called but is out of the office today. Patient agrees for MRI at 6:00 p.m. today. Discussion: Appropriate for discharge home. Patient asymptomatic during course of stay. Exam and laboratory studies imaging studies are reassuring. Primary care contacted. Follow up will be arranged. Diagnosis: Headache Discharge Plan Departure Patient Disposition: Home Clinical Impression: Headache Qualifiers: Headache type: unspecified Headache chronicity pattern: acute headache Intractability: not intractable Qualified Code(s): R51.9 - Headache, unspecified Instructions: DI for Headache Activity Restrictions/Additional Instructions: Your exam and CT scan imaging MRI and laboratory studies are reassuring. I am glad you are feeling better. Please do call your primary care provider tomorrow for follow up next week. Return if worse if any questions or concerns. Continue home medications. Prescriptions: No Action amitriptyline 25 mg tablet PO Dayvigo 5 mg tablet PO gabapentin 300 mg capsule 300 mg PO ONCE PM PRN vitamin D3-vitamin K2 125-90 mcg capsule PO Patient Comments: I've had multiple basal cell and squamous cell carcinomas and family history of melanoma; therefore I use sunscreen and avoid sun exposure. Calcium Magnesium 500 mg calcium -250 mg tablet PO estradiol 0.01 % (0.1 mg/gram) cream 0.5 g vaginal 2XW Qty: 42.5 3RF levothyroxine 50 mcg tablet 50 mcg PO DAILY Qty: 90 0RF oxybutynin chloride 2.5 mg tablet 2.5 mg PO DAILY Qty: 30 2RF multivitamin tablet 1 tab PO DAILY acetaminophen [Acetaminophen Pain Relief] 500 mg Tablet 1,000 mg PO Q6H PRN (Reason: Pain) Rx Instructions: Post op med Referrals: Zenaida Guzman MD [Primary Care Provider, Family Practice] Stand Alone Forms: Patient Portal/API
[2025-02-16 13:04] LABS: Add Manual Diff / Slide Review NO; Hematocrit 32.6 % (36-46); Hemoglobin 11.0 g/dL (12.0-16.0); Lymphocytes Absolute Auto 1100 /uL (1100-4500); Mean Corpuscular HGB Conc 33.9 % (30-36); Mean Corpuscular Hemoglobin 32.4 PG (26-34); Mean Corpuscular Volume 95.6 fL (80-100); Platelet Count 186 X10^3/uL (150-400)
[2025-02-16 13:05] LABS: Alanine Aminotransferase 18 IU/L (<35); Albumin 4.4 g/dL (3.5-5.0); Albumin Globulin Ratio 1.4 (1.0-2.8); Alkaline Phosphatase 70 U/L (38-126); Blood Urea Nitrogen 19 mg/dL (7-17); Calcium 9.0 mg/dL (8.4-10.2); Carbon Dioxide 26 mmol/L (22-32); Chloride 104 mmol/L (98-107); Estimated Glomerular Filt Rate > 60 mL/min (>60); Globulin 3.1 g/dL (1.7-4.1); Glucose 85 mg/dL (70-99); Potassium 4.7 mmol/L (3.4-5.1); Sodium 136 mmol/L (137-145); Total Protein 7.5 g/dL (6.3-8.2)
[2025-02-16 13:06] LABS: HEMOLYSIS 74 (0-50)
[2025-02-16 13:31] LABS: Appearance Urine UA SL CLOUDY; Bilirubin Urine UA NEGATIVE (NEGATIVE); Color Urine UA YELLOW; Glucose Urine UA NEGATIVE (Negative); Ketones Urine UA NEGATIVE (NEGATIVE); Leukocyte Esterase Urine UA NEGATIVE (NEGATIVE); Nitrite Urine UA NEGATIVE (Negative); Occult Blood Urine UA NEGATIVE (Negative); Protein Urine UA NEGATIVE (Negative); Specific Gravity Urine UA <=1.005 (1.000-1.035); Urobilinogen Urine UA 0.2 E.U./dL (0.2)
[2025-02-16 13:32] LABS: pH Urine UA 7.0 (4.5-8.0)
[2025-02-16 13:35] LABS: Culture Indicated Urine Cult Not Indicated
--- NOTE | 2025-02-16 16:06 | DI.MRI.S_ITS ---
PROCEDURE: MR HEAD/BRAIN WO CON INDICATIONS: Headache blurry vision TECHNIQUE: Non-contrast axial T1 spin echo, axial T2 fast spin echo, sagittal and axial FLAIR, coronal T2 fast spin echo, axial gradient echo, axial diffusion and ADC through the brain. COMPARISON: [facility], CT, CT HEAD/BRAIN WO CON, 02/16/2025, 13:06. [facility], CT, CT ANGIO HEAD AND NECK, 02/16/2025, 13:06. FINDINGS: Image quality: Excellent. CSF spaces: Ventricles appear symmetric in size and shape. Basal cisterns are patent. No extra-axial fluid collections. Brain: No acute intracranial hemorrhage or mass effect. There is cerebral volume loss for age. There are mild periventricular and deep white matter chronic small vessel ischemic changes. Brainstem appears normal. Diffusion-weighted images show no acute infarct. No chronic ischemic insults. Normal intravascular flow voids are present. Skull and face: Calvarial bone marrow is normal in signal. Orbits are normal. Sinuses: Mild mucosal thickening in the bilateral ethmoid air cells. The remaining visualized paranasal sinuses and the mastoid air cells are clear. IMPRESSION: 1. No acute intracranial hemorrhage or recent infarct. 2. Mild chronic microvascular ischemic changes and generalized parenchymal volume loss. Approved by: Dann Ludwig M.D. on 02/16/2025 at 18:50
== END 2025-02-16 19:00 | disposition home or self-care (01) ==
PROVIDERS: Emergency Provider Emergency Medicine; Family Provider Family Medicine; PCP Family Medicine
DX: R51.9 Headache, unspecified (principal); R42 Dizziness and giddiness; R53.83 Other fatigue; Z86.39 Personal history of other endocrine, nutritional and metabolic disease
CPT/HCPCS: 36415; 70450; 70496; 70498; 70551; 80053; 81001; 85025; 93005; 96360; 96361; 99284

== ENCOUNTER → 2025-05-31 15:44 | Outpatient (CLI) | payer MEDICARE, OTHER, SELFPAY ==
[2020-08-17 16:15] VITALS: BMI 20.1
--- NOTE | 2025-05-31 15:45 | DI.RAD.S_ITS ---
PROCEDURE: XR CERVICAL SPINE 2V OR 3V INDICATIONS: neck pain TECHNIQUE: 3 view(s) of the cervical spine were acquired. COMPARISON: None. FINDINGS: Bones: No fractures or dislocations to the C7 level. Loss of the normal cervical lordosis. Mild anterolisthesis of C3 on C4. The lateral masses of C1 appear intact on the odontoid view. No suspicious bony lesions. There are multilevel degenerative changes of the cervical spine with facet and uncovertebral arthropathy, disc height loss with degenerative endplate changes and spurring. Severe involving the mid cervical spine. Soft tissues: No prevertebral soft tissue swelling. IMPRESSION: Severe degenerative changes of the cervical spine. Dictated by: Willam Dotson M.D. on 05/31/2025 at 21:57 Approved by: Willam Dotson M.D. on 05/31/2025 at 21:58
== END ==
PROVIDERS: PCP Family Medicine; Referring Provider Family Medicine; Visit Provider Family Medicine
DX: M47.812 Spondylosis without myelopathy or radiculopathy, cervical region (principal); M54.2 Cervicalgia; R20.2 Paresthesia of skin
CPT/HCPCS: 72040

== ENCOUNTER → 2025-07-31 15:08 | Outpatient (CLI) | payer MEDICARE, OTHER, SELFPAY ==
[2020-08-17 16:15] VITALS: BMI 20.1
--- NOTE | 2025-07-31 15:09 | DI.MRI.S_ITS ---
PROCEDURE: MR CERVICAL SPINE WO CON INDICATIONS: Progressive Axial Neck Pain TECHNIQUE: Noncontrast sagittal T1 spin echo and T2 fast spin echo, sagittal STIR, foraminal oblique sagittal T2 fast spin echo, and axial gradient echo or T2 fast spin echo through the cervical spine. COMPARISON: None. FINDINGS: Image quality: Excellent. Alignment and Curvature: Mild, grade 1, 1 mm, anterolisthesis of C3 on C4. Mild, grade 1, 1 mm, retrolisthesis of C4 on C5. Bone Marrow: Discogenic degenerative bone marrow edema at C5-6. No suspicious, confluent, marrow replacing process. Red and yellow marrow throughout the axial spine. Spinal Cord: Enters placement of the spinal cord at T2-3. Otherwise the spinal cord is normal or in morphology and signal. Paraspinous Soft Tissues: No paravertebral masses. Prevertebral soft tissues are normal in thickness. C2-C3: Degenerated disc osteophyte complex with superimposed central disc protrusion, which indents anterior thecal sac and results in mild spinal canal stenosis. Mild bilateral facet arthrosis. No neural foraminal stenosis. C3-C4: Mild spinal canal stenosis due to degenerated disc osteophyte complex and superimposed, central disc protrusion with minimal ligamentum flavum thickening and disc uncovering from anterolisthesis. Mild right neural foraminal stenosis due to uncovertebral and facet arthrosis. No significant left neural foraminal stenosis. C4-C5: Mild to moderate spinal canal stenosis due to degenerated disc osteophyte complex and ligamentum flavum thickening. Right moderate and left [id number] neural foraminal stenosis due to uncovertebral greater than facet arthrosis. C5-C6: Moderate spinal canal stenosis due to degenerated disc osteophyte complex and ligamentum flavum thickening. Right severe and left mild neural foraminal stenosis due to uncovertebral and facet arthrosis. C6-C7: Moderate spinal canal stenosis due to degenerated disc osteophyte complex and ligamentum flavum thickening. Bilateral, left worse than right, severe neural foraminal stenosis due to uncovertebral greater than facet arthrosis. C7-T1: Mildly desiccated disc. No spinal canal stenosis. No neural foraminal stenosis. IMPRESSION: 1. 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 Recommend further evaluation with thoracic spine MRI. 2. Multilevel spinal canal stenosis reaches moderate at C5-6 and C6-7. 3. Multilevel neural foraminal stenosis reaches severe on the right at C5-6, bilaterally at C6-7, and moderate on the right at C4-5. Dictated by: Igor Gastelum M.D. on 08/01/2025 at 10:32 Approved by: Igor Gastelum M.D. on 08/01/2025 at 10:38
== END ==
LOC: MRI 15:09
PROVIDERS: PCP Family Medicine; Referring Provider Physical Medicine & Rehabilitation; Visit Provider Physical Medicine & Rehabilitation
DX: M47.812 Spondylosis without myelopathy or radiculopathy, cervical region (principal); M48.02 Spinal stenosis, cervical region
CPT/HCPCS: 72141